=== PATIENT | female | born 1945 | race Caucasian/White ===

== ENCOUNTER 2017-01-20 21:13 | Inpatient (IN) | payer MEDICARE ==
[2017-01-20 21:53] LABS: Hematocrit 47 % (35-47); Hemoglobin 14.7 g/dl (12.0-16.0); Mean Corpuscular HGB Conc 31 g/dl (31-36); Mean Corpuscular Hemoglobin 31 pg (27-31); Mean Corpuscular Volume 97 fL (80-97); Mean Platelet Volume 10 um3 (7.4-10.4); Red Blood Count 4.81 10^6/ul (4.0-5.4); Red Cell Distribution Width 17 % (10.5-15); White Blood Count 29.9 10^3/ul (3.5-10.8)
[2017-01-20 21:54] LABS: Add Diff/Slide Review? Manual Diff Added; Comments Flag Yes
[2017-01-20 22:15] LABS: ALT 27 U/L (7-52); Albumin 3.5 g/dL (3.2-5.2); Alkaline Phosphatase 72 U/L (34-104); Blood Urea Nitrogen 40 mg/dL (6-24); CO2 Carbon Dioxide 25 mmol/L (22-32); Calcium 9.2 mg/dL (8.6-10.3); Chloride 97 mmol/L (101-111); EGFR African American 54.3 (>60); EGFR Non-African American 42.2 (>60); Glucose 204 mg/dL (70-100); Sodium 134 mmol/L (133-145); Total Protein 8.5 g/dL (6.4-8.9)
[2017-01-20 22:20] LABS: Add Path Review? YES; Immature Granulocytes 5 % (0-9); Neutrophil % 90 % (38-83); Toxic Granulation 2+; Troponin I 0.09 ng/mL (<0.04)
[2017-01-20 22:31] LABS: Creatine Kinase 6977 U/L (10-223)
--- NOTE | 2017-01-20 22:31 | RAD ---
INDICATION: Trauma, altered mental status. COMPARISON: Comparison is made with a prior CT of the brain from July 13, 2007. TECHNIQUE: Contiguous axial sections of the brain were obtained from the skull base to the vertex without contrast. FINDINGS: The ventricles, cisterns and sulci are enlarged consistent with age-related atrophy. There is a focal area of encephalomalacia present in the periventricular white matter adjacent to the frontal horn of the left lateral ventricle involving the caudate nucleus consistent with an old infarct. No other focal abnormalities or mass effect are seen. There is no evidence for hemorrhage. No significant focal osseous abnormality is seen. The visualized portion of the paranasal sinuses and mastoid air cells appear clear. IMPRESSION: 1. NO EVIDENCE FOR ACUTE INTRACRANIAL ABNORMALITY. 2. OLD LEFT FRONTAL LOBE INFARCT.
[2017-01-20] MEDS ORDERED: NS 0.9% 1000 ML* 1,000 ML IV ONE (22:54)
--- NOTE | 2017-01-20 22:58 | RAD ---
INDICATION: Trauma. COMPARISON: Comparison is made with a prior chest x-ray study from September 22, 2015. TECHNIQUE: A portable view of the chest was obtained. FINDINGS: The patient is status post coronary artery bypass surgery. The heart is moderately enlarged and unchanged. The lungs are underinflated and grossly clear. No pleural effusion is seen. IMPRESSION: UNDERINFLATED LUNGS, NO EVIDENCE FOR ACUTE FINDING.
--- NOTE | 2017-01-20 23:13 | RAD ---
INDICATION: Right hip injury. COMPARISON: There are no prior studies available for comparison. TECHNIQUE: An AP view of the pelvis and frontal and lateral views of the right hip were obtained. FINDINGS: The patient was unable to be positioned for the standard images and there is a large amount of bowel gas which projects over the pelvis limiting the exam. There is suggestion of a fracture of the right femoral neck which is not well-defined on this study. No other fractures are seen. Joint spaces appear maintained within the hips. A portion of the colon extends below the ischial tuberosities suspicious for a hernia. IMPRESSION: 1. PROBABLE FRACTURE OF THE RIGHT FEMORAL NECK NOT WELL-DEFINED ON THIS STUDY. RECOMMEND FURTHER EVALUATED WITH A CT OF THE PELVIS WITHOUT CONTRAST. 2. POSSIBLE HERNIA OF THE COLON NOTED ABOVE.
[2017-01-20] MEDS ORDERED: NS 0.9% 1000 ML* 1,000 ML IV SCH (23:45)
[2017-01-20] MEDS ORDERED: Cefepime(*) 2 GM in NS 0.9% 50 ML* 50 ML IVPB ONE (23:55)
[2017-01-20] MEDS ORDERED: Senna TAB PO PRN (23:57)
[2017-01-20] MEDS ORDERED: Ondansetron INJ* 2 MG/ML VIAL IV PRN (23:57)
[2017-01-20] MEDS ORDERED: Docusate CAP* 100 MG PO PRN (23:57)
[2017-01-20] MEDS ORDERED: Acetaminophen TAB* 325 MG PO PRN (23:57)
[2017-01-20] MEDS ORDERED: Al Hydrox/Mg Hydrox/Simet LIQ* 30 ML UDC PO PRN (23:57)
[2017-01-21] MEDS ORDERED: Dextrose 50% Syringe 50 ML* 25 GM/50 ML SYRINGE IV PUSH PRN (00:02)
[2017-01-21] MEDS ORDERED: NS 0.9% 50 ML* 50 ML ONE (00:23)
[2017-01-21] MEDS ORDERED: Aspirin SUPP* 300 MG PR ONE (00:49)
[2017-01-21 01:57] LABS: Urine Bacteria 2+ (Absent); Urine Bilirubin Negative (Negative); Urine Glucose Negative (Negative); Urine Nitrite Negative (Negative)
[2017-01-21 02:06] LABS: Troponin I 0.13 ng/mL (<0.04)
[2017-01-21] MEDS: Nystatin TOP POWDER* 15 GM BTL TOPICAL SCH ×4 (02:08→21:44)
[2017-01-21] MEDS: Insulin LISPRO* 1 UNITS UNIT SUBCUT SCH ×6 (02:16→21:38)
--- NOTE | 2017-01-21 03:28 | HP ---
HISTORY AND PHYSICAL: DATE OF ADMISSION: 01/20/17 TIME OF EVALUATION: 2300. PRIMARY CARE PHYSICIAN: Ammy Vieira MD CHIEF COMPLAINT: Fall and altered mental status. HISTORY OF PRESENT ILLNESS: The patient is hallucinating and altered and unable to give a reliable history, unable to answer questions appropriately or follow commands. According to the notes in the ER report, patient was found by her neighbors on the ground. They brought her to emergency room for further evaluation. Patient was noted to have an elevated white count, acute kidney injury, elevated troponins, CK and evidence of right hip fracture. On my encounter, patient denies any pain. She states that no one would help her and that she is seeing a woman standing next to me who was not actually there. She is unable to provide any reliable history and she is rambling nonsensical information to me. In the emergency room, the patient had labs, imaging. She was given a liter of normal saline, was referred to the hospitalist service for further evaluation. PAST MEDICAL HISTORY: 1. Her head CT shows an old frontal lobe infarct. 2. History of coronary artery disease, status post bypass in 2007. 3. History of pulmonic stenosis. 4. History of obstructive sleep apnea. She does not tolerate CPAP. 5. Hyperlipidemia. 6. History of atrial fibrillation. 7. Diabetes. 8. Stasis dermatitis. 9. Morbid obesity. MEDICATIONS: Medications that were in the med rec confirmed are: 1. Steroid cream. 2. Multaq 400 mg p.o. b.i.d. 3. Aspirin 81 mg daily. 4. Eliquis 5 mg p.o. b.i.d. 5. Januvia 100 mg daily. 6. Glipizide 5 mg p.o. b.i.d. 7. Zocor 80 mg daily. 8. Lopressor 25 mg p.o. b.i.d. ALLERGIES: No known drug allergies. SOCIAL HISTORY: Unknown. It appears that she has 2 sisters that are in the system here. FAMILY HISTORY: Unknown. REVIEW OF SYSTEMS: Unable to obtain. PHYSICAL EXAM: GENERAL: In no acute distress, rambling nonsensical information. VITAL SIGNS: Temperature 96.7, pulse rate of 87, respiratory rate 20, oxygen saturation 99% on 4 L, blood pressure 160/93. HEENT: Pupils are equal and sluggish, anicteric. Head normocephalic. Oropharynx: Mucous membranes are dry. NECK: Supple. No lymphadenopathy. RESPIRATORY: Diminished breath sounds. No wheezing, rhonchi, or rales. CARDIAC: Regular rate and rhythm. Soft systolic murmur heard throughout. ABDOMEN: Soft, nontender, nondistended. EXTREMITIES: Patient with right lower extremity shortened and externally rotated. DERM: Patient with erythematous regions in the folds of her skin in her lower extremities with dry peeling skin on her feet. NEUROLOGIC: Unable to follow commands. Alert and oriented x0. She is able to move her upper and lower extremities. Limited lower extremity mobility in the right lower extremity. LABORATORY DATA: White count 29.9, hemoglobin 14.7, hematocrit 47, platelets 263, neutrophils percentage of 90, bands of 5. Sodium 134, chloride 97, bicarb 25, BUN 40, creatinine 1.25, glucose 204, total bili 1.3, CK is 6977, troponin is 0.09. Radiographic data: EKG shows normal sinus rhythm. Head CT, no evidence for acute intracranial abnormality. Old left frontal lobe infarct. Hip and pelvis x-ray, probable fracture of the right femoral neck, not well defined. Recommend further evaluation with CT of pelvis without contrast. Possible hernia of the colon as noted above. Chest x-ray; underinflated lungs show no evidence for acute findings. ASSESSMENT: This is a 72-year-old female with a past medical history of CAD, CVA, obstructive sleep apnea. She was found on the floor by the neighbors, now altered with leukocytosis, acute kidney injury and elevated troponin. 1. Fall. Assessment: Unclear of the etiology behind her fall as the patient is altered and unable to give a history. It is unclear of the duration either. Her CK on presentation was 7000 with acute kidney injury. Also found to have a significant leukocytosis. Could be infectious etiology resulting in the fall versus myocardial infarction versus acute stroke. As a result of the fall, she likely appears to have suffered a right hip fracture. Plan: Due to patient's significant altered mental status and her metabolic derangements with significant comorbidity history and admitting her to the ICU, we will follow up on a urinalysis order, blood cultures and start her on cefepime. CT of her head. We will also place for a social work consult to get contact information for her family and find out who her healthcare proxy is. I will also continue her on IV fluids in the setting of her rhabdomyolysis. We will put in for a bedside swallow as I am concerned that she is not safe to eat or drink at this time. 2. Right hip fracture. Assessment: X-ray findings are not clear on as to the type of fracture. Plan: We will get a CT, would hold off on any surgical procedure until the patient is stabilized with her mental status and further etiology of this. Also , she is on Eliquis supposedly. So, we will not continue this at this time. We will check her coags. 3. Acute kidney injury. Assessment: Suspect this is from her fall prerenal and complicated by her rhabdomyolysis. Plan: We will continue her on IV fluids and repeat labs in the morning. Renally dose her medications. 4. Leukocytosis. Assessment: Urine has not been obtained yet. The chest x- ray was unremarkable. She does have a lot of skin erythema and irritation. No purulent wounds noted on limited exam. Plan: We will do blood cultures as mentioned and start her on cefepime and follow up on her urine. 5. Elevated troponin. Assessment: Patient is unable to articulate any pain at this time. EKG is unremarkable. I will trend her troponins, check an echocardiogram and order aspirin suppository for now. 6. Altered mental status. Assessment: As discussed above, could be related to infectious etiology. Also, concern for possible stroke. Plan: We will give her aspirin and as mentioned empiric antibiotics for now and need to get in touch with the family. 7. Chronic medical problems. Hold all her oral agents at this time as the patient is unsafe to tolerate any p.o. We will place her on q.4 hours of glucose monitoring with lispro sliding scale for her diabetes. 8. FEN. As mentioned, keep her n.p.o. until she is safe to pass a swallow eval with IV fluids. 9. DVT prophylaxis: We will check her coags first and place her on SCD's and heparin subcu t.i.d. 10. Code status. Presuming that this is a full code, we need to get in touch with her healthcare proxy. TIME SPENT: Greater than 90 minutes was spent doing the history and physical, more than half the time was spent in direct patient contact. CC: Ammy Vieira MD* [id number]/CPS #: [id number] [facility]
[2017-01-21] MEDS: Heparin VIAL(*) 5000 UNITS/ML VIAL (FIVE THOUSAND) SUBCUT SCH ×3 (05:37→21:44)
[2017-01-21 06:07] LABS: Hematocrit 39 % (35-47); Hemoglobin 12.4 g/dl (12.0-16.0); Mean Corpuscular HGB Conc 32 g/dl (31-36); Mean Corpuscular Hemoglobin 31 pg (27-31); Mean Corpuscular Volume 97 fL (80-97); Mean Platelet Volume 9 um3 (7.4-10.4); Red Blood Count 4.05 10^6/ul (4.0-5.4); Red Cell Distribution Width 16 % (10.5-15); White Blood Count 28.5 10^3/ul (3.5-10.8)
[2017-01-21 06:08] LABS: Add Diff/Slide Review? Slide Review Added; Comments Flag Yes
[2017-01-21 06:28] LABS: BUN/Creatinine Ratio 34.5 (8-20); Blood Urea Nitrogen 38 mg/dL (6-24); CO2 Carbon Dioxide 27 mmol/L (22-32); Calcium 8.5 mg/dL (8.6-10.3); Chloride 102 mmol/L (101-111); Glucose 154 mg/dL (70-100); Sodium 138 mmol/L (133-145)
[2017-01-21 06:46] LABS: Creatine Kinase 4088 U/L (10-223)
[2017-01-21 07:04] LABS: Troponin I 0.17 ng/mL (<0.04)
--- NOTE | 2017-01-21 08:51 | RAD ---
Indication: Found on floor. Altered mental status. Assess for RIGHT hip fracture. Comparison: January 20, 2017 radiographs and June 15, 2007 CT. Technique: Multidetector CT pelvis without contrast. Multiplanar reformation with bone algorithm. Report: The hips are normally located. No evidence for RIGHT or LEFT proximal femur or pelvic fracture. Negative for pelvic joint diastases. Bone density appears decreased throughout. No soft tissue hematoma evident. Large transverse colon containing midline ventral hernia without resulting bowel obstruction or inflammatory change. Large volume of stool in the colon with moderate rectal distention. Catheterized largely decompressed urinary bladder. No free pelvic fluid. Negative for lymphadenopathy within the [id number]. Atherosclerotic calcification. The visualized infrarenal abdominal aorta and iliac arteries are negative for evidence for aneurysm. IMPRESSION: No CT evidence for hip or pelvic fracture.
--- NOTE | 2017-01-21 09:19 | PN ---
Subjective Date of Service: 01/21/17 Interval History: HOSPITALIST PROGRESS NOTE Patient seen and examined at bedside. She is lethargic, but opens eyes when touched. Confused, offers no complaints, but experienced significant pain when rolled to her right side. Family History: Unchanged from Admission Social History: Unchanged from Admission Past Medical History: Unchanged from Admission Objective Active Medications: Acetaminophen (Tylenol Tab*) 650 mg PO Q4H PRN PRN Reason: FEVER/PAIN Al Hydrox/Mg Hydrox/Simethicone (Maalox Plus*) 30 ml PO Q6H PRN PRN Reason: INDIGESTION Dextrose (D50w Syringe 50 Ml*) 12.5 gm IV PUSH .FOR FS < 60 - SS PRN PRN Reason: FS < 60 Docusate Sodium (Colace Cap*) 100 mg PO BID PRN PRN Reason: CONSTIPATION Heparin Sodium (Porcine) (Heparin Vial(*)) 5,000 units SUBCUT Q8HR [facility] Last Admin: 01/21/17 05:37 Dose: 5,000 units Cefepime HCl 2 gm/ Sodium (Chloride) 50 mls @ 100 mls/hr IVPB Q12H [facility] Sodium Chloride (Ns 0.9% 1000 Ml*) 1,000 mls @ 125 mls/hr IV PER RATE [facility] Last Admin: 01/21/17 01:57 Dose: 125 mls/hr Insulin Human Lispro (Humalog*) 0 units SUBCUT Q4HR [facility] PRN Reason: Protocol Last Admin: 01/21/17 05:51 Dose: 3 units Morphine Sulfate (Morphine Inj (Syringe)*) 2 mg IV Q4H PRN PRN Reason: PAIN Nystatin (Nystatin Top Powder*) 1 applic TOPICAL TID [facility] Last Admin: 01/21/17 02:08 Dose: 1 applic Ondansetron HCl (Zofran Inj*) 4 mg IV Q4H PRN PRN Reason: NAUSEA/VOMITING Oxycodone/Acetaminophen (Percocet 5/325 Tab*) 1 tab PO Q4H PRN PRN Reason: Pain Senna (Senokot Tab*) 1 tab PO BID PRN PRN Reason: CONSTIPATION Vital Signs 01/21/17 01/21/17 01/21/17 05:00 06:00 07:00 Temperature 98.5 F 98.9 F 98.9 F Pulse Rate Respiratory 22 21 23 Rate Blood Pressure 126/63 138/86 (mmHg) O2 Sat by Pulse 98 98 98 Oximetry Oxygen Devices in Use Now: Nasal Cannula Appearance: Elderly morbid obese lady lying in bed in NAD. Eyes: No Scleral Icterus Ears/Nose/Mouth/Throat: - - Dry MM Neck: Trachea Midline Respiratory: Symmetrical Chest Expansion and Respiratory Effort, Clear to Auscultation Cardiovascular: RRR - Normal S1 and S2, +SM Abdominal: - - Obese, large umbilical hernia, I'm unable to reduce it, but not abdominal tenderness, NG, NR, BS+ Extremities: - - Bilateral LE edema with hyperkeratosis, oozing of clear fluid, mild erythema. RLE is externally rotated, shorter, and she has a bruise on the posterior aspect of the right hip. Neurological: - - Lethargic, arousable to touch, confused, oriented to self only , BRAVO, no nuchal rigidity Lines/Tubes/Other Access: Clean, Dry and Intact Peripheral IV Result Diagrams: 01/21/17 05:43 01/21/17 06:47 Assess/Plan/Problems-Billing Assessment: Mrs. Walton is an 72yo F with PMH of morbid obesity with BMI 50, CVA, CAD s/p CABG 2007, pulmonic stenosis, CLAUDE non compliant with CPAP, HLD, Afib on Eliquis , type 2 DM, stasis dermatitis, brought in to ED after being found on the floor , confused, for unknown period of time. - Patient Problems (1) Severe sepsis Comment: - Patient met sepsis criteria on admission with leukocytosis, tachycardia, complicated by ADELAIDA and delirium. - Siginificant leukocytosis with left shift and bandemia. - Source is unclear at this time - UA showed negative nitrates and LE, trace WBCs; CxR shows no infiltrate; skin lesions appear to be chronic. She has a large umbilical hernia, but it doesn't appear to be incarcerated; no meningeal signs. - She has a systolic murmur - awaiting echocardiogram and blood cultures, but endocarditis is a possibility - will request ID input. - Place NGT and check CT chest/abd/pelvis with IV/PO contrast looking for occult infectious process/abscess. - She was on Eliquis as outpatient - unclear when she took her last dose - will d/w ID if LP indicated, and if so, will make arrangements with Anesthesia. - Increase IVF and continue Cefepime. (2) Fall Comment: - Unclear if mechanical or syncopal. - Her RLE is externaly rotated and shorter, she has a bruise on the posterior aspect of her right hip, suggestive of fracture, but CT pelvis was negative. D/ w Ortho (Dr. Herrera) - recommended MRI pelvis. (3) Delirium Comment: - Associated with severe sepsis. - Supportive care. (4) Rhabdomyolysis Comment: - Secondary to down time on the floor. - Trending down. (5) Troponin level elevated Comment: - Could be secondary to rhabdo, demand ischemic in the setting of severe sepsis, or NSTEMI. - She has a known h/o CAD and EKG shows flat Ts and ST depression on the lateral leads. - Continue Aspirin ID and trend trops until peak. (6) ADELAIDA (acute kidney injury) Comment: - Suspect pre-renal in the setting of dehydration/sepsis. - Continue IVF and monitor renal function. (7) Lactic acidosis Comment: - Repeat lactic acid. (8) Atrial fibrillation Comment: - Currently in Afib with HR in the 90s. - Eliquis on hold in case patient needs procedures. (9) Diabetes Comment: - PO meds on hold - continue Lispro SS. (10) DVT prophylaxis Comment: - SQ heparin. (11) Full code status Status and Disposition: 60 minutes Critical care time spent on this patient care. deer farm worker consult to help us find family members.
[2017-01-21] MEDS ORDERED: NS 0.9% 1000 ML* 1,000 ML IV SCH (09:47)
--- NOTE | 2017-01-21 11:09 | ED ---
Adelfo Stubbs Erika, scribed for Jarrell Mccrary MD on 01/20/17 at 2201 . Adult Trauma - HPI Summary HPI Summary: Patient is a 72-year-old female BIBA to the ED with a CC of fall. EMS reports they found patient on the ground and brought her in. Patient now complains of right hip pain. Pt has AMS and cannot provide a clear history. LEVEL 5 CAVEAT - AMS. - History of Current Complaint Stated Complaint: FALL/LEG PAIN Time Seen by Provider: 01/20/17 21:18 Hx Obtained From: Patient, EMS Hx From Patient Unobtainable Due To: Altered Mental Status Mechanism of Injury: Fall Onset/Duration: Traumatic Current Severity: Moderate - Additional Pertinent History Primary Care Physician: JOHNNA - Allergy/Home Medications Allergies/Adverse Reactions: Allergies Allergy/AdvReac Type Severity Reaction Status Date / Time No Known Allergies Allergy Verified 01/20/17 23:24 PMH/Surg Hx/FS Hx/Imm Hx Endocrine/Hematology History: Reports: Hx Diabetes Denies: Hx Thyroid Disease Cardiovascular History: Reports: Hx Coronary Artery Disease, Hx Hypercholesterolemia - HLD, Hx Hypertension, Hx Valvular Heart Disease - AORTIC & PILMONARY STENOSIS, Other Cardiovascular Problems/Disorders - INFEROLATERAL & LATERAL WALL INFARCT - 2007 Respiratory History: Reports: Hx Sleep Apnea - CLAUDE GI History: Reports: Hx Crohn's Disease, Other GI Disorders - OBESITY, HERNIA REPAIR Musculoskeletal History: Denies: Hx Osteoporosis Sensory History: Reports: Hx Contacts or Glasses Opthamlomology History: Reports: Hx Contacts or Glasses Neurological History: Reports: Hx Transient Ischemic Attacks (TIA) Denies: Hx Headaches - Cancer History Hx Chemotherapy: No Hx Radiation Therapy: No - Surgical History Surgery Procedure, Year, and Place: HERNIA REPAIR. CARDIAC CATH 2008. CABG - 2008 @ [facility] - Family History Family History: Denies FHx breast cancer - Social History Alcohol Use: None Hx Substance Use: No Substance Use Type: Reports: None Hx Tobacco Use: No Smoking Status (MU): Never Smoked Tobacco Review of Systems - ROS Summary Review of Systems Summary: LEVEL 5 CAVEAT - AMS. Positive: Arthralgia - R hip All Other Systems Reviewed And Are Negative: No Physical Exam Triage Information Reviewed: Yes Vital Signs On Initial Exam: Temp Pulse Resp BP Pulse Ox 96.7 F 85 20 137/115 99 01/20/17 21:20 01/20/17 21:59 01/20/17 21:59 01/20/17 21:40 01/20/17 21:59 Vital Signs Reviewed: Yes Completion Of Physical Exam Limited Due To: Altered Mental Status Appearance: Positive: Well-Appearing, No Pain Distress, Obese - Morbidly Skin: Positive: Warm, Skin Color Reflects Adequate Perfusion, Dry, Other - Erythematous, weeping areas on all of her skin folds Head/Face: Positive: Normal Head/Face Inspection Eyes: Positive: Normal ENT: Positive: Normal ENT inspection Neck: Positive: Supple, Nontender Abdomen Description: Positive: Nontender, Soft Bowel Sounds: Positive: Present Musculoskeletal: Positive: Other - Right leg is shortened and externally rotated. Tender with any ROM over her hip Neurological: Positive: Other - Awake and alert but confused Psychiatric: Positive: Affect/Mood Appropriate Diagnostics - Vital Signs Vital Signs Temp Pulse Resp BP Pulse Ox 01/20/17 23:30 87 19 146/127 98 01/20/17 23:00 88 20 133/86 96 01/20/17 22:44 122/88 01/20/17 22:05 86 21 99 01/20/17 22:01 87 22 99 01/20/17 22:00 74/49 01/20/17 21:59 85 20 99 01/20/17 21:41 79 22 76 01/20/17 21:40 137/115 01/20/17 21:20 96.7 F 91 14 160/93 97 - Laboratory Lab Results: Lab Results 01/20/17 01/20/17 01/20/17 Range/Units 21:30 21:30 21:30 WBC 29.9 H (3.5-10.8) 10^3/ul RBC 4.81 (4.0-5.4) 10^6/ul Hgb 14.7 (12.0-16.0) g/dl Hct 47 (35-47) % MCV 97 (80-97) fL MCH 31 (27-31) pg MCHC 31 (31-36) g/dl RDW 17 H (10.5-15) % Plt Count 263 (150-450) 10^3/ul MPV 10 (7.4-10.4) um3 Immature Gran % (Auto) 5 (0-9) % Absolute Neuts (auto) 28.4 H (1.5-7.7) 10^3/ul Absolute Lymphs (auto) 0.9 L (1.0-4.8) 10^3/ul Absolute Monos (auto) 0.6 (0-0.8) 10^3/ul Absolute Eos (auto) 0 (0-0.6) 10^3/ul Absolute Basos (auto) 0 (0-0.2) 10^3/ul Absolute Nucleated RBC 0 10^3/ul Neutrophils % 90 H (38-83) % Band Neutrophils % 5 (0-8) % Lymphocytes % 3 L (25-47) % Monocytes % 2 (0-13) % Toxic Granulation 2+ Normal RBC Morphology Not Reportable Hem Pathologist Commnt Sodium 134 (133-145) mmol/L Potassium TNP Chloride 97 L (101-111) mmol/L Carbon Dioxide 25 (22-32) mmol/L Anion Gap TNP BUN 40 H (6-24) mg/dL Creatinine 1.25 H (0.51-0.95) mg/dL Est GFR ( Amer) 54.3 (>60) Est GFR (Non-Af Amer) 42.2 (>60) BUN/Creatinine Ratio 32.0 H (8-20) Glucose 204 H (70-100) mg/dL Lactic Acid 2.4 H* (0.5-2.0) mmol/L Calcium 9.2 (8.6-10.3) mg/dL Total Bilirubin 1.30 H (0.2-1.0) mg/dL AST TNP ALT 27 (7-52) U/L Alkaline Phosphatase 72 (34-104) U/L Total Creatine Kinase 6977 H (10-223) U/L Troponin I 0.09 H* (<0.04) ng/mL Total Protein 8.5 (6.4-8.9) g/dL Albumin 3.5 (3.2-5.2) g/dL Globulin 5.0 H (2-4) g/dL Albumin/Globulin Ratio 0.7 L (1-3) Result Diagrams: 01/21/17 05:43 01/21/17 06:47 Lab Statement: Any lab studies that have been ordered have been reviewed, and results considered in the medical decision making process. - Radiology CXR Radiology Interpretation Completed By: Radiologist - IMPRESSION: UNDERINFLATED LUNGS, NO EVIDENCE FOR ACUTE FINDING. R Hip XR Radiology Interpretation Completed By: Radiologist - IMPRESSION: 1. PROBABLE FRACTURE OF THE RIGHT FEMORAL NECK NOT WELL-DEFINED ON THIS STUDY. RECOMMEND FURTHER EVALUATED WITH A CT OF THE PELVIS WITHOUT CONTRAST. 2. POSSIBLE HERNIA OF THE COLON NOTED ABOVE. - CT CT Brain CT Interpretation Completed By: Radiologist - IMPRESSION: 1. NO EVIDENCE FOR ACUTE INTRACRANIAL ABNORMALITY. 2. OLD LEFT FRONTAL LOBE INFARCT. - EKG 21:14 Cardiac Rate: NL - at 88 bpm EKG Rhythm: Sinus Rhythm ST Segment: Non-Specific Adult Trauma Course/Dx - Course Course Of Treatment: Ms. Armstrong is difficult to evaluate as she has had a prevoious frontal CVA and her baseline mental status is unknown. She is awake and alert and answers some questions appropriately but at other times is clearly confused. She is morbidly obese and WBCdifficult to evaluate but clinially looks to have a right hip fracture. It is unkown how, why or when she fell. He CPK is elevated as are her WBCs. X-Ray reveals her hip fracture. Fluids have been started on her and Dr. Evans is consulting for admission. - Diagnoses Provider Diagnoses: Closed right hip fracture, Rhabdomyolysis - Physician Notifications Discussed Care Of Patient With: Dr. Evans (hospitalist) at 23:14 - discussed case. - Critical Care Time Critical Care Time: 30-74 min Discharge - Discharge Plan Condition: Stable Disposition: ADMITTED TO [facility] documentation as recorded by the Adelfo miles Erika accurately reflects the service I personally performed and the decisions made by , Jarrell Mccrary MD.
[2017-01-21] MEDS: Cefepime(*) 2 GM in NS 0.9% 50 ML* 50 ML IVPB SCH (12:43)
[2017-01-21 12:46] LABS: Hematocrit 38 % (35-47); Hemoglobin 11.9 g/dl (12.0-16.0); Mean Corpuscular HGB Conc 31 g/dl (31-36); Mean Corpuscular Hemoglobin 31 pg (27-31); Mean Corpuscular Volume 97 fL (80-97); Mean Platelet Volume 9 um3 (7.4-10.4); Red Blood Count 3.91 10^6/ul (4.0-5.4); Red Cell Distribution Width 16 % (10.5-15); White Blood Count 25.6 10^3/ul (3.5-10.8)
[2017-01-21 12:52] LABS: Add Diff/Slide Review? Manual Diff Added; Comments Flag Yes
[2017-01-21 13:02] LABS: Albumin 2.7 g/dL (3.2-5.2); C Reactive Protein 141.49 mg/L (< 5.00); Calcium 8.4 mg/dL (8.6-10.3); EGFR African American 67.9 (>60); EGFR Non-African American 52.8 (>60); Globulin 3.4 g/dL (2-4); Total Bilirubin 1.1 mg/dL (0.2-1.0); Total Protein 6.1 g/dL (6.4-8.9)
[2017-01-21 13:08] LABS: Troponin I 0.15 ng/mL (<0.04)
--- NOTE | 2017-01-21 13:22 | CONS ---
CONSULTATION REPORT: DATE OF CONSULTATION: 01/21/17 REQUESTING PHYSICIAN: Dr. Howard. CONSULTING SERVICE: Infectious Disease. REASON FOR CONSULTATION: Sepsis and encephalopathy. IMPRESSION: 1. Encephalopathy, present on admission due to systemic illness. She does not have nuchal rigidity and her mental status is still improving, so I do not believe there is meningitis present. 2. Sepsis, present on admission, the source is unknown at this point. She does have significant leukocytosis raising the question of either Clostridium difficile diarrhea, but she does not have much in the way of diarrhea. In fact she had a semi-formed stool today versus an undrained abscess and given her mild transaminitis and elevated bilirubin, a liver abscess is a consideration. She does have a murmur, so infectious endocarditis is in the differential diagnosis as is a urinary tract infection. She does have significant right hip pain and she has been evaluated for hip fracture because of external rotation of that leg, but because of also concomitant concern for infection she could have a septic hip as well. She does not have any spine tenderness to suggest an epidural abscess or vertebral osteo discitis. 3. Morbid obesity. 4. History of stroke. 5. Coronary artery disease status post coronary artery bypass graft. 6. Diabetes. RECOMMENDATION: 1. I agree with cefepime. She is going to have a CT of the abdomen today. The CT of the pelvis was unremarkable. If there is any evidence of liver abscess, we will add Flagyl. 2. She is going to have an MRI of the right hip and if that is unrevealing I would recommend an aspiration of the right hip joint to evaluate for septic hip. HISTORY OF PRESENT ILLNESS: This is a 72-year-old woman with diabetes and obesity admitted with right hip pain and altered mental status. She cannot provide a history of her illness given her mental status which is obtained instead from discussion with Dr. Howard and review of the medical record. She was found by her neighbors apparently on the ground and they brought her to the emergency room where she was found to have leukocytosis, acute kidney injury, had normal troponin, and elevated CK. Hip x-ray showed probable fracture of the right femoral neck. A CT scan showed no fracture. Brain CT scan showed an old left frontal lobe infarct. A chest x-ray showed underinflated lungs and no acute findings. A CT of the pelvis in addition was showing no hip fracture, showed a ventral hernia containing transverse colon without bowel obstruction or inflammation, a catheter in the bladder. No lymphadenopathy or free pelvic fluid. She has been on cefepime and having IV fluid hydration or resuscitation. Her fever has improved as her hypotension and tachycardia. She is still tachypneic. She denies pain anywhere. She thinks she is at a birthday alliance party. PAST MEDICAL HISTORY: 1. Coronary artery disease status post CABG. 2. Morbid obesity. 3. Type 2 diabetes. 4. Pulmonic stenosis. 5. Obstructive sleep apnea, does not use CPAP. 6. Hyperlipidemia. 7. Atrial fibrillation. 8. Stasis dermatitis. MEDICATIONS: 1. Tylenol. 2. Aspirin. 3. Cefepime 2 g every 12 hours. 4. Heparin subcutaneous injection. 5. Zofran. 6. Oxycodone. ALLERGIES: No known drug allergies. FAMILY HISTORY: Cannot provide. SOCIAL HISTORY: She cannot provide. REVIEW OF SYSTEMS: Unobtainable. PHYSICAL EXAM: Vital Signs: Temperature is 37, heart rate 90, respiration rate 24, blood pressure 150/130, O2 sat 99% on 4 L. In general, she is not under stress or diaphoretic. Neurologic: She is awake. She regards. She follows some commands. She is oriented x1. She answered some yes and no questions but no others. She has no lower extremity clonus. She can move all of her extremities. HEENT: There is no conjunctival hemorrhage. Oropharynx without lesions. Neck is supple without nuchal rigidity. Lymph Nodes: There is no cervical, supraclavicular, inguinal, axillary or epitrochlear lymphadenopathy. Heart is regular rate and rhythm without murmurs, rubs or gallops. She has a 2/6 systolic murmur. Lungs are clear to auscultation bilaterally. Abdomen is soft, nontender, nondistended. There are bowel sounds present. There is midline ventral hernia with bowel present, which is nontender and reducible. Skin: There is no rash or splinter hemorrhages. She has bilateral lower extremity venous stasis changes. Musculoskeletal: There is no spine tenderness to palpation. She does have right hip pain with palpation and minimal log roll. I did not perform further evaluation given concern for fracture. There is no other joint synovitis. LABORATORY DATA: White blood cell count 28 down from 30, hemoglobin 12, platelets 230, creatinine is 1.1. CK is 4000 down from 7000. Troponin is 0.2. Please see impressions and recommendations as outlined above which I have discussed with Dr. Howard. Thanks for asking me to see Ms. Armstrong in consultation. [id number]/[facility] #: [id number] JEFF
[2017-01-21 13:53] LABS: Neutrophil % 92 % (38-83); RBC Morphology Normal (Normal)
[2017-01-21] MEDS ORDERED: Iodixanol* (CONTRAST) 320 MG/ML 100 ML SDV IV SCH (14:03)
--- NOTE | 2017-01-21 15:33 | RAD ---
HISTORY: Sepsis COMPARISONS: None relevant available at the time of dictation TECHNIQUE: Multiple contiguous axial CT scans were obtained of the chest, abdomen, and pelvis after the administration of intravenous contrast. Coronal and sagittal multiplanar reformations are submitted for review.. Oral contrast was administered. Delayed images were obtained through the abdomen and pelvis. FINDINGS: The study is limited by patient body habitus. CHEST NECK AND THYROID: The lower neck and thyroid are unremarkable. CHEST WALL: There is no lower cervical, axillary, or supraclavicular lymphadenopathy by size criteria. HEART AND PERICARDIUM: The heart is unremarkable. 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 ROSAMARIA: There is no hilar lymphadenopathy by size criteria. AIRWAY AND ESOPHAGUS: The airway is unremarkable, without endobronchial filling defect. The esophagus is grossly normal. LUNG PARENCHYMA: The lung volumes are low. There is minimal dependent atelectasis of the lung bases bilaterally. There are small bilateral pleural effusions. PLEURA: There are small bilateral pleural effusions BONES AND SOFT TISSUES: The patient is status post median sternotomy.There appears to be a transverse fracture through the anterior aspect of the T12 vertebral body of uncertain acuity. This does not appear to involve the middle column or posterior column. There is no subluxation. ABDOMEN/PELVIS: LIVER: The liver is normal in shape, size, contour, and attenuation. BILE DUCTS: There is no intrahepatic or extrahepatic biliary dilatation. GALLBLADDER: Multiple gallstones are noted. There is no pericholecystic inflammatory change. PANCREAS: The pancreas is normal, without mass or ductal dilatation. SPLEEN: Normal in size and appearance. UPPER GI TRACT: Evaluation of the gastrointestinal tract is limited by incomplete gastric distention. The upper GI tract is unremarkable. SMALL BOWEL \T\ MESENTERY: The small bowel is normal in contour, course, and caliber. There is no obstruction or dilatation. COLON: There is enlargement of stool throughout the colon. There is a large ventral hernia containing loops of sigmoid colon. ADRENALS: Normal bilaterally. KIDNEYS: The kidneys are normal in shape, size, contour, and axis. There is no hydronephrosis or nephrolithiasis. BLADDER: The bladder is collapsed around a Flowers catheter PELVIC ORGANS: The uterus and adnexa are grossly normal for technique. AORTA: There is calcific atherosclerotic disease of the abdominal aorta and its branches, without aneurysmal dilatation IVC: Unremarkable LYMPH NODES: There is no lymphadenopathy by size criteria. ABDOMINAL WALL: As noted above, there is a large ventral hernia containing loops of sigmoid colon. BONES: Degenerative changes are noted along the spine. Again noted is a transverse fracture through T12 of uncertain acuity OTHER: None IMPRESSION: 1. 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 2. THERE IS A TRANSVERSE FRACTURE THROUGH THE ANTERIOR ASPECT OF THE T12 VERTEBRAL BODY OF UNCERTAIN ACUITY. THIS DOES NOT APPEAR TO INVOLVE THE MIDDLE OR POSTERIOR COLUMNS. 3. LARGE VENTRAL HERNIA CONTAINING LOOPS OF SIGMOID COLON. 4. LARGE AMOUNT OF STOOL WITHIN THE COLON PRELIMINARY FINDINGS WERE DISCUSSED WITH DR. MCKEON AT APPROXIMATELY 3:30 PM ON JANUARY 21, 2017.
--- NOTE | 2017-01-21 16:27 | ECHO ---
Patient: SCOT FAGAN [facility] Rec#: [id number] : 1945 Date: 01/21/2017 Age: 72y Height: 162.56 cm / 64.0 in Weight: 132.45 kg / 291.9 lbs Sex: F BSA: 2.3 Room#: [id number] Admit Date#: 01/20/2017 Type: Inpatient Referring: Shaye Evans Reading: Chad Santos MD Fuel Cell Battery Technician: Holly Cuadra Fuel Cell Battery Technician: Debora Choe,JESSIECS,RDMS CC: JAS PATEL Transthoracic Echocardiogram Indication: Elevated troponins, aortic stenosis BP: 138/86 HR: 90 Rhythm: NSR with PVCs Indications Aortic Valve Disorders Findings History: CAD with GABG 2008, pulmonic stenosis, CLAUDE, A-fib, CVA, HLD, DM, morbid obesity, soft systolic murmur, aortic stenosis. Technical Comments: The study is technically difficult. The study is technically limited due to patient body habitus. The study was technically limited due to the patient's inability to lay in the left lateral decubitus position. Completed at 1500. Left Ventricle: The left ventricular chamber size is decreased. Severe concentric left ventricular hypertrophy is observed. Left ventricular systolic function is at the lower limits of normal. The estimated ejection fraction is 50-55%. closer to 55% with mild relative hypokinesis of the infero and inferoseptal segments. Abnormal left ventricular diastolic function is observed. The left ventricular diastolic filling pattern is restrictive. The basal inferior, and basal inferoseptal wall segments are hypokinetic (score 2). Overall wallmotion score index is 1.13 Left Atrium: The left atrium is not well visualized. Right Ventricle: The right ventricle is not well visualized. The right ventricle wall thickness is mildly increased.7 mm. The right ventricular global systolic function is moderately reduced. Right Atrium: The right atrium is not well visualized. Aortic Valve: Severe aortic leaflet calcification is visualized. Systolic excursion of the aortic valve cusps is reduced. There is severe aortic stenosis.DI .21 The mean gradient of the aortic valve is 42.68 mmHg. The peak instantaneous gradient of the aortic valve is 74.2 mmHg. The aortic valve area, by peak velocities, is calculated at 0.6 cm2. The aortic valve area, by VTI's, is calculated at 0.7 cm2. The highest aortic valve velocity was obtained with the standard probe from the A5C view. Mitral Valve: There is mitral annular calcification. The mitral valve leaflets are moderately thickened. There is mild mitral regurgitation. There is mild mitral stenosis. Tricuspid Valve: The tricuspid valve leaflets are normal. There is moderate to severe tricuspid regurgitation. There is evidence of moderate to severe pulmonary hypertension. There is no tricuspid stenosis. Pulmonic Valve: The pulmonic valve structure is not well visualized. There is trace to mild pulmonic regurgitation. There is borderline Pulmonic Valve stenosis. Pericardium: There is no significant pericardial effusion. A pericardial fat pad is visualized. Aorta: There is no dilatation of the ascending aorta.The posterior aoric annulus is not well visualized; however, cannot exclude perivalvular abscess. There is no dilatation of the aortic arch. There is no dilation of the aortic root. Pulmonary Artery: The main pulmonary artery is not well visualized. Venous: The inferior vena cava is dilated. There is an approximate 50% respiratory change in the inferior vena cava dimension. Contrast: Optison was used to optimize study. 3 mL of Optison was utilized. Intravenous contrast was used to enhance endocardial border definition. Conclusions The study is technically limited due to patient body habitus. Severe concentric left ventricular hypertrophy is observed. Left ventricular systolic function is at the lower limits of normal. The left ventricular diastolic filling pattern is restrictive. The right ventricle wall thickness is mildly increased at 7 mm. The right ventricular global systolic function is moderately reduced. There is severe aortic stenosis. DI .21 The mean gradient of the aortic valve is 42.68 mmHg. The aortic valve area, by peak velocities, is calculated at 0.6 cm2. There is mild mitral regurgitation. There is mild mitral stenosis. There is moderate to severe tricuspid regurgitation. There is evidence of moderate to severe pulmonary hypertension. There is trace to mild pulmonic regurgitation. The main pulmonary artery is not well visualized. (reportedly dilated on CT). There is no dilatation of the ascending aorta. The posterior aortic annulus is not well visualized; however, cannot exclude perivalvular abscess. Interval progression in c/t 01/2014 when the DOMINIC was 1.1 cm2. Now 0.6- 0.7 cm2. Wall motion not assessed last time. This study not able to assess pulomonary artery dilatation. Measurements Name Value Normal Range RVIDd (AP) 2D 4 cm (0.9 - 2.6) IVSd (2D) 2.3 cm (0.6 - 1) LVPWd (2D) 1.8 cm (0.6 - 1) LVIDd (2D) 2.6 cm (3.6 - 5.4) LVIDs (2D) 1.7 cm - LV FS (2D) 34 % (25 - 45) Aortic Annulus 1.8 cm (1.4 - 2.6) Ao root diameter (2D) 2.9 cm (2.1 - 3.5) Ascending Ao 3.2 cm (2.1 - 3.4) Aortic arch 2.7 cm (1.8 - 3.4) LA dimension (AP) 2D 3.6 cm (2.3 - 3.8) Name Value Normal Range MV E-wave Vmax 1.1 m/sec - MV deceleration time 127 msec - MV A-wave Vmax 1.28 m/sec - MV E:A ratio 0.89 ratio - LV septal e' Vmax 0.05 m/sec - LV E:e' septal ratio 22 ratio - Name Value Normal Range AV Vmax 4.31 m/sec - AV VTI 82.9 cm - AV peak gradient 74.2 mmHg - AV mean gradient 42.68 mmHg - LVOT diameter 2 cm - LVOT Vmax 0.82 m/sec - LVOT VTI 17.35 cm - LVOT peak gradient 2.67 mmHg - LVOT mean gradient 1.54 mmHg - DOI (VTI) 0.21 ratio - DOMINIC (continuity Vmax) 0.6 cm2 - DOMINIC (continuity VTI) 0.7 cm2 - SOFY Vmax 1.16 m/sec - Name Value Normal Range MV Vmax 1.16 m/sec - MV VTI 25.14 cm - MV peak gradient 5.4 mmHg - MV mean gradient 3 mmHg - MV PHT 59.93 msec - MVA (PHT) 3.67 cm2 - Name Value Normal Range TR Vmax 3.8 m/sec - TR peak gradient 58 mmHg - RAP 8 mmHg - RVSP 66 mmHg - IVC diameter 2.1 cm - Name Value Normal Range PV Vmax 1.1 m/sec - PV peak gradient 5.06 mmHg - Wallmotion BAS Normal BA Normal BAL Normal AGATA Normal BI Hypokinetic BIS Hypokinetic MAS Normal MA Normal MAL Normal MIL Normal NV Normal MIS Normal Normal AA Normal AL Normal AI Normal APEX Normal
[2017-01-21] MEDS: NS 0.9% 1000 ML* 1,000 ML IV SCH (20:30)
--- NOTE | 2017-01-21 20:34 | CONS ---
CARDIOLOGY CONSULTATION: DATE OF CONSULT: 01/21/17 REASON FOR EVALUATION: Sepsis, Afib, aortic stenosis. HISTORY SOURCE: The patient unable to provide history. Source is from Dr. Shah, from Dr. Lay's old chart note from 12/19/15, and her admission note from 01/21/17. HISTORY OF PRESENT ILLNESS: This is a 72-year-old woman who has a history of coronary artery disease, bypass grafting, paroxysmal atrial fibrillation, morbid obesity, diabetes, who was found by her neighbors on the ground. She was brought to the emergency room. She was noted to have an elevated white count, acute kidney injury, elevated troponins, CK, and evidence of right hip fracture. She was hallucinating and rambling and was given a liter of normal saline. She had an echo performed today, which revealed severe aortic stenosis and she has leukocytosis. The differential diagnosis includes endocarditis. Of note, she also had a CT scan, which showed aneurysmal pulmonary artery. PAST MEDICAL HISTORY: Includes CT scan that shows an old frontal lobe infarct, history of coronary artery disease, status post bypass in 2007. [address] Lay's note at that time, in 2007 she had 80% LAD, ramus proximal 80%, circumflex mid 80%, OM1 occluded, collaterals from the LAD, RCA mid 60%, PDA normal. She had multivessel coronary artery grafting in July 2008 with FAGAN to LAD, radial artery graft to the ramus. She has a history of pulmonic stenosis, although we cannot see that quantitated, history of obstructive sleep apnea, did not tolerate CPAP; hyperlipidemia; paroxysmal atrial fibrillation, on Multaq; diabetes; stasis dermatitis; morbid obesity; aortic stenosis; hypertension; congestive heart failure. CVA was in 2005. Colitis. PAST SURGICAL HISTORY: Includes D and C in 1975, bypass grafting in 2007. MEDICATIONS: Her medications as an outpatient include: 1. Steroid cream. 2. Multaq 400 mg b.i.d. 3. Aspirin 81 mg a day. 4. Eliquis 5 mg b.i.d. 5. Januvia 100 mg a day. 6. Glipizide 5 mg b.i.d. 7. Zocor 80 mg a day. 8. Lopressor 25 mg b.i.d. ALLERGIES: She has no known drug allergies as per the chart. FAMILY HISTORY: She apparently has a brother and a sister, but has not yet met them. ROS: pt unable to provide PHYSICAL EXAM: She is a well-developed, morbidly obese female, who appears somewhat agitated, unable to tell me the date or where she is or answering questions coherently. No significant JVD. Carotids diminished. Cardiac Exam: S1, S2 with a 3/6 late peaking harsh systolic murmur at the base radiating across the precordium. Chest was clear, but the patient was poorly cooperative with exam. No CVAT. Abdomen, morbidly obese. Exam limited. Distal pulses diminished. There were chronic venous stasis changes at the lower extremities. moves all extremities. Unable to cooperate with exam further. Temperature 99.1, heart rate 94, O2 sats 99%. DIAGNOSTIC STUDIES/LAB DATA: Her CK on admission was 6977, troponin 0.09. White count of 29.9. She was hydrated and an echocardiogram was obtained today. Echocardiogram revealed severe aortic stenosis, mean gradient of 43, valve area of 0.6 to 0.7 sq cm, [id number] TR, [id number] pulmonary hypertension, borderline pulmonic valve stenosis by this evaluation, and posterior and aortic annulus was not well visualized, cannot exclude perivalvular abscess. Interval progression of an from 1.1 sq cm, then to 6.6 to 6.7 sq cm this time. Labs include white count of 25.6, down from 29.9 yesterday. Hemoglobin 11.9, hematocrit 38, platelet count of 217. INR 1.3. Troponin up to 0.21 at 10 o' clock this morning down to 0.15 at 12:30. Sodium 137, potassium 4.0, BUN 36, creatinine 1.0. CK 2745. CRP is 141. INR 1.1. Urine; 2+ bacteria, angel and cloudy, concentrate at 1.021, protein 1+, blood 3+, nitrite negative. Brain CT from yesterday revealed no evidence of acute intracranial abnormality, old left frontal lobe infarct. Pelvic CT from today, no evidence for hip fracture. 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 Transverse fractures to the anterior aspect of the T12 vertebral body of uncertain acuity. Large ventral hernia containing loops of sigmoid colon. Large amount of stool was in the colon. She had a consultation with Dr. Briggs of ID. There was concern for endocarditis as well as septic hip. She was started on cefepime and was to have a CT of the abdomen and she is going to have a MRI of the right hip in consideration of aspiration for a right hip joint. IMPRESSION: Ms. Armstrong has a history of coronary artery disease, aortic stenosis, paroxysmal atrial fibrillation, and now presents after being found on the floor with elevated CK's, sepsis. Certainly given the severity of the aortic stenosis, she is at risk for hemodynamic compromise and syncope. She also is at risk for endocarditis. I discussed case with Dr. Shah and I have recommended the following: We will continue to treat with antibiotics as you are doing. Would be cautious with hydration and avoid volume overload given her high risk for systolic dysfunction. Would consider SJ to better evaluate her valve and evaluate for endocarditis. Given her confusion and sepsis, she will be a poor candidate and high risk for aortic valve replacement. At this point in time, would continue antibiotics and stabilize her medically and consider transfer for CT surgery if the patient agrees and she is improved enough to be at reasonable risk for surgical intervention. Her prognosis is extremely guarded. [id number]/[facility] #: [id number] ADDENDUM: DATE OF CONSULTATION: 01/21/17 REASON FOR CONSULTATION: , sepsis, AFib. I had the opportunity to meet with Dr. Shah and the patient's brother and sister, Deandra. I had the opportunity to explain to them the diagnosis, prognosis and seriousness of the current situation. Given her severe and possible endocarditis and comorbidities, we put her at increased risk for complications at surgery. It is my opinion she has a life threatening illness and may not recover from this hospitalization. Deandra also reported that the patient has been less active over the recent weeks and seems to have decreased stamina. She also had some confusion earlier this week. She also conveyed that the patient did not want any heroic or life sustaining interventions in the event of a serious illness. I had raised the possibility of doing a SJ to better evaluate her aortic valve and try to confirm the source of the infection. However, she understands that this will put her at risk for complications including apnea, respiratory arrest, and intubation. At this point, Deandra, the healthcare proxy, understands the gravity of the situation and would like to proceed with antibiotics as we are doing on an empiric basis. Will await cultures. We will reevaluate tomorrow and see if she has recovered capacity to make a decision about the procedure. We will reconsider if she deteriorates. It is unlikely that a SJ will improve outcome or change the management at that point in time. If she improves, we will discuss the options with the patient and consider SJ at some point that will let her define the source of the infection. JEFF
--- NOTE | 2017-01-21 20:50 | CONS ---
CONSULTATIONS: ADDENDUM: DATE OF CONSULTATION: 01/21/17 REASON FOR CONSULTATION: , sepsis, AFib. I had the opportunity to meet with Dr. Shah and the patient's brother and sister, Deandra. I had the opportunity to explain to them the diagnosis, prognosis and seriousness of the current situation. Given her severe and possible endocarditis and comorbidities, we put her at increased risk for complications at surgery. It is my opinion she has a life threatening illness and may not recover from this hospitalization. Deandra also reported that the patient has been less active over the recent weeks and seems to have decreased stamina. She also had some confusion earlier this week. She also conveyed that the patient did not want any heroic or life sustaining interventions in the event of a serious illness. I had raised the possibility of doing a SJ to better evaluate her aortic valve and try to confirm the source of the infection. However, she understands that this will put her at risk for complications including apnea, respiratory arrest, and intubation. At this point, Deandra, the healthcare proxy, understands the gravity of the situation and would like to proceed with antibiotics as we are doing on an empiric basis. Will await cultures. We will reevaluate tomorrow and see if she has recovered capacity to make a decision about the procedure. We will reconsider if she deteriorates. It is unlikely that a SJ will improve outcome or change the management at that point in time. If she improves, we will discuss the options with the patient and consider SJ at some point that will let her define the source of the infection. [id number]/[facility] #: [id number] JEFF
[2017-01-22] MEDS: Cefepime(*) 2 GM in NS 0.9% 50 ML* 50 ML IVPB SCH ×3 (00:11→23:10)
[2017-01-22] MEDS: Insulin LISPRO* 1 UNITS UNIT SUBCUT SCH ×6 (01:57→21:51)
[2017-01-22 05:17] LABS: Hematocrit 39 % (35-47); Hemoglobin 12.2 g/dl (12.0-16.0); Mean Corpuscular HGB Conc 31 g/dl (31-36); Mean Corpuscular Hemoglobin 31 pg (27-31); Mean Corpuscular Volume 99 fL (80-97); Mean Platelet Volume 9 um3 (7.4-10.4); Red Cell Distribution Width 16 % (10.5-15); White Blood Count 21.2 10^3/ul (3.5-10.8)
[2017-01-22 05:21] LABS: Add Diff/Slide Review? Slide Review Added; Comments Flag Yes
[2017-01-22 05:31] LABS: Albumin 2.8 g/dL (3.2-5.2); C Reactive Protein 119.68 mg/L (< 5.00); Calcium 8.7 mg/dL (8.6-10.3); EGFR African American 77.4 (>60); EGFR Non-African American 60.2 (>60); Globulin 3.5 g/dL (2-4); Potassium 4.5 mmol/L (3.5-5.0); Total Protein 6.3 g/dL (6.4-8.9)
[2017-01-22] MEDS: Nystatin TOP POWDER* 15 GM BTL TOPICAL SCH ×4 (05:59→20:25)
[2017-01-22] MEDS: Heparin VIAL(*) 5000 UNITS/ML VIAL (FIVE THOUSAND) SUBCUT SCH ×3 (05:59→20:27)
[2017-01-22] MEDS: NS 0.9% 1000 ML* 1,000 ML IV SCH (06:23)
--- NOTE | 2017-01-22 07:44 | RAD ---
INDICATION: Trauma right hip pain evaluate for fracture. COMPARISON: Correlation is made with a prior CT of the pelvis from January 21, 2017. TECHNIQUE: Axial and coronal T1 and T2-weighted images of the pelvis were obtained. The exam is limited due to patient's body habitus. FINDINGS: No bone marrow edema or fracture is seen. No joint effusion is present. There is edema within the right gluteus maximums and medius muscles. There is also edema in the right adductor muscles most prominent in the adductor longus and prateek muscles. No discrete hematoma is appreciated. No free intraperitoneal fluid is seen. There is a small amount of fluid present within the presacral space. No sacral fracture is seen. Note is made of an anterior abdominal wall hernia containing a portion of the colon. IMPRESSION: 1. NO EVIDENCE FOR FRACTURE. 2. CONTUSIONS INVOLVING THE RIGHT GLUTEAL AND ADDUCTOR MUSCLES NOTED. 3. ANTERIOR ABDOMINAL WALL HERNIA.
[2017-01-22] MEDS ORDERED: Aspirin SUPP* 300 MG PR SCH (09:00)
--- NOTE | 2017-01-22 11:51 | PN ---
Progress Note - Progress Note SOAP: Subjective: 72 y/o female with h/o fall, rhabdo, sepsis- unknown source, ADELAIDA. Patient sitting in bed, responds to name. Objective: General- Appearing more alert from prior hospital notes, responds to questioning, answers often non-sensical. MSK- B/L LE's with chronic skin changes likely due to poor perfusion. + non- pitting edema b/l LE's. + tenderness to moderate palpation when I initially touch any part of b/l LEs, however with distraction pain subsides typically, however continued pain over RIGHT distal femur, lateral knee joint, medial calf. No pain with continued palpation with distraction over right troch, no pain with deep palpation right groin/ right hip joint. No ecchymosis seen, however examination limited due to inability to roll patient independently- majority of buttock not viewed. Patient unable/ willing to perform ROM, passive of active due to pain, patient states at "mid leg". Patient will actively resist pressure against mid-thigh with flex/ extension. PT 1+ b/l, difficult to find. patient will actively move toes, ankle, however unable to move knee joint due to pain in any direction. Attempted log roll of R leg causes pain "mid leg". Vital Signs Temp 99.1 F 01/22/17 11:00 Pulse 94 01/22/17 11:00 Resp 25 01/22/17 11:00 BP 107/89 01/22/17 11:00 Pulse Ox 90 01/22/17 11:00 Intake & Output 01/21/17 01/22/17 01/22/17 18:59 06:59 18:59 Intake Total 2224 1402 Output Total 280 650 Balance 1944 752 Weight 292 lb Intake: IV Fluids 1094 1321 NS (0.9%) 1094 1321 IVPB 100 81 NS (0.9%) 100 81 Oral 1030 Output: Flowers 280 650 Other: Date of Last Bowel 01/21/2017 01/22/17 Movement # Bowel Movements 1 1 Estimated Stool Amount Large Large Laboratory Results - last 24 hr 01/21/17 01/21/17 01/21/17 12:30 12:30 12:30 WBC 25.6 H RBC 3.91 L Hgb 11.9 L Hct 38 MCV 97 MCH 31 MCHC 31 RDW 16 H Plt Count 217 MPV 9 Neut % (Auto) Lymph % (Auto) [place] % (Auto) Eos % (Auto) Baso % (Auto) Absolute Neuts (auto) 23.55 H Absolute Lymphs (auto) 1.28 Absolute Monos (auto) 0.77 Absolute Eos (auto) 0 Absolute Basos (auto) 0 Absolute Nucleated RBC 0 Neutrophils % 92 H Lymphocytes % 5 L Monocytes % 3 Nucleated RBC % Normal RBC Morphology Normal Sodium 137 Potassium 4.0 Chloride 103 Carbon Dioxide 28 Anion Gap 6 BUN 36 H Creatinine 1.03 H Est GFR ( Amer) 67.9 Est GFR (Non-Af Amer) 52.8 BUN/Creatinine Ratio 35.0 H Glucose 116 H POC Glucose (mg/dL) Lactic Acid 1.5 Calcium 8.4 L Total Bilirubin 1.10 H AST 86 H ALT 23 Alkaline Phosphatase 49 Total Creatine Kinase 2745 H Troponin I 0.15 H* C-Reactive Protein 141.49 H Total Protein 6.1 L Albumin 2.7 L Globulin 3.4 Albumin/Globulin Ratio 0.8 L 01/21/17 01/21/17 01/21/17 13:47 17:52 21:38 WBC RBC Hgb Hct MCV MCH MCHC RDW Plt Count MPV Neut % (Auto) Lymph % (Auto) [place] % (Auto) Eos % (Auto) Baso % (Auto) Absolute Neuts (auto) Absolute Lymphs (auto) Absolute Monos (auto) Absolute Eos (auto) Absolute Basos (auto) Absolute Nucleated RBC Neutrophils % Lymphocytes % Monocytes % Nucleated RBC % Normal RBC Morphology Sodium Potassium Chloride Carbon Dioxide Anion Gap BUN Creatinine Est GFR ( Amer) Est GFR (Non-Af Amer) BUN/Creatinine Ratio Glucose POC Glucose (mg/dL) 132 H 102 112 H Lactic Acid Calcium Total Bilirubin AST ALT Alkaline Phosphatase Total Creatine Kinase Troponin I C-Reactive Protein Total Protein Albumin Globulin Albumin/Globulin Ratio 01/22/17 01/22/17 01/22/17 01:56 05:00 05:00 WBC 21.2 H RBC 4.00 Hgb 12.2 Hct 39 MCV 99 H MCH 31 MCHC 31 RDW 16 H Plt Count 197 MPV 9 Neut % (Auto) 91.4 H Lymph % (Auto) 4.1 L [place] % (Auto) 4.1 Eos % (Auto) 0.2 Baso % (Auto) 0.2 Absolute Neuts (auto) 19.4 H Absolute Lymphs (auto) 0.9 L Absolute Monos (auto) 0.9 H Absolute Eos (auto) 0.1 Absolute Basos (auto) 0.1 Absolute Nucleated RBC 0.01 Neutrophils % Lymphocytes % Monocytes % Nucleated RBC % 0 Normal RBC Morphology Sodium 137 Potassium 4.5 Chloride 106 Carbon Dioxide 24 Anion Gap 7 BUN 34 H Creatinine 0.92 Est GFR ( Amer) 77.4 Est GFR (Non-Af Amer) 60.2 BUN/Creatinine Ratio 37.0 H Glucose 102 H POC Glucose (mg/dL) 115 H Lactic Acid Calcium 8.7 Total Bilirubin 1.00 AST 62 H ALT 23 Alkaline Phosphatase 53 Total Creatine Kinase 1180 H Troponin I C-Reactive Protein 119.68 H Total Protein 6.3 L Albumin 2.8 L Globulin 3.5 Albumin/Globulin Ratio 0.8 L 01/22/17 01/22/17 05:00 11:03 WBC RBC Hgb Hct MCV MCH MCHC RDW Plt Count MPV Neut % (Auto) Lymph % (Auto) [place] % (Auto) Eos % (Auto) Baso % (Auto) Absolute Neuts (auto) Absolute Lymphs (auto) Absolute Monos (auto) Absolute Eos (auto) Absolute Basos (auto) Absolute Nucleated RBC Neutrophils % Lymphocytes % Monocytes % Nucleated RBC % Normal RBC Morphology Sodium Potassium Chloride Carbon Dioxide Anion Gap BUN Creatinine Est GFR ( Amer) Est GFR (Non-Af Amer) BUN/Creatinine Ratio Glucose POC Glucose (mg/dL) 108 H Lactic Acid 1.4 Calcium Total Bilirubin AST ALT Alkaline Phosphatase Total Creatine Kinase Troponin I C-Reactive Protein Total Protein Albumin Globulin Albumin/Globulin Ratio Assessment: 72 y/o female with h/o fall, rhabdo, sepsis- unknown source, ADELAIDA. Plan: - Concerns of R hip infection- MRI negative for source, physical exam not suggestive. Will order radiograph R femur, knee to r/o possible pathology for R leg pain - Urine cx's + - ADELAIDA, TCK improving. - Patient discussed with Dr. Herrera who will review radiographs - Will discuss with attending Active Medications Generic Name Dose Route Start Last Admin Trade Name Freq PRN Reason Stop Dose Admin Acetaminophen 650 mg 01/20/17 23:57 Tylenol Tab* PO Q4H PRN FEVER/PAIN Al Hydrox/Mg Hydrox/Simethicone 30 ml 01/20/17 23:57 Maalox Plus* PO Q6H PRN INDIGESTION Aspirin 300 mg 01/22/17 09:00 01/22/17 09:48 Aspirin Supp* NJ 300 mg DAILY GRACIE Administration Dextrose 12.5 gm 01/21/17 00:02 D50w Syringe 50 Ml* IV PUSH .FOR FS < 60 - SS PRN FS < 60 Docusate Sodium 100 mg 01/20/17 23:57 Colace Cap* PO BID PRN CONSTIPATION Heparin Sodium (Porcine) 5,000 units 01/21/17 06:00 01/22/17 05:59 Heparin Vial(*) SUBCUT 5,000 units Q8HR GRACIE Administration Cefepime HCl 2 gm/ Sodium 50 mls @ 100 mls/hr 01/21/17 12:00 01/22/17 11:48 Chloride IVPB 100 mls/hr Q12H GR[facility] Administration Sodium Chloride 1,000 mls @ 100 mls/hr 01/21/17 16:49 01/22/17 06:23 Ns 0.9% 1000 Ml* IV 100 mls/hr PER RATE GRAC[facility] Administration Insulin Human Lispro 0 units 01/21/17 02:00 01/22/17 11:06 Humalog* SUBCUT Not Given Q4HR [facility] Protocol Iodixanol 141 ml 01/21/17 14:03 01/21/17 14:49 Visipaque* 320 (Contrast) IV 01/23/17 14:02 141 ml ONCE GRAC[facility] Administration Morphine Sulfate 2 mg 01/20/17 23:57 Morphine Inj (Syringe)* IV Q4H PRN PAIN Nystatin 1 applic 01/21/17 02:00 01/22/17 09:48 Nystatin Top Powder* TOPICAL 1 applic TID GRACIE Administration Ondansetron HCl 4 mg 01/20/17 23:57 Zofran Inj* IV Q4H PRN NAUSEA/VOMITING Oxycodone/Acetaminophen 1 tab 01/20/17 23:57 Percocet 5/325 Tab* PO Q4H PRN Pain Senna 1 tab 01/20/17 23:57 Senokot Tab* PO BID PRN CONSTIPATION
--- NOTE | 2017-01-22 13:29 | PN ---
Subjective Date of Service: 01/22/17 Interval History: HOSPITALIST PROGRESS NOTE Patient seen and examined at bedside. She is more awake today, able to carry on conversation. Still confused, but knows she's in the hospital, although she doesn't remember why. Pain is "not bad " at this time. Family History: Unchanged from Admission Social History: Unchanged from Admission Past Medical History: Unchanged from Admission Objective Active Medications: Acetaminophen (Tylenol Tab*) 650 mg PO Q4H PRN PRN Reason: FEVER/PAIN Al Hydrox/Mg Hydrox/Simethicone (Maalox Plus*) 30 ml PO Q6H PRN PRN Reason: INDIGESTION Aspirin (Aspirin Supp*) 300 mg MA DAILY [facility] Last Admin: 01/22/17 09:48 Dose: 300 mg Dextrose (D50w Syringe 50 Ml*) 12.5 gm IV PUSH .FOR FS < 60 - SS PRN PRN Reason: FS < 60 Docusate Sodium (Colace Cap*) 100 mg PO BID PRN PRN Reason: CONSTIPATION Dronedarone (Multaq Tab*) 400 mg PO BID [facility] Heparin Sodium (Porcine) (Heparin Vial(*)) 5,000 units SUBCUT Q8HR [facility] Last Admin: 01/22/17 05:59 Dose: 5,000 units Cefepime HCl 2 gm/ Sodium (Chloride) 50 mls @ 100 mls/hr IVPB Q12H [facility] Last Admin: 01/22/17 11:48 Dose: 100 mls/hr Sodium Chloride (Ns 0.9% 1000 Ml*) 1,000 mls @ 100 mls/hr IV PER RATE [facility] Last Admin: 01/22/17 06:23 Dose: 100 mls/hr Insulin Human Lispro (Humalog*) 0 units SUBCUT Q4HR [facility]AC[facility] PRN Reason: Protocol Last Admin: 01/22/17 11:06 Dose: Not Given Iodixanol (Visipaque* 320 (Contrast)) 141 ml IV ONCE [facility] Stop: 01/23/17 14:02 Last Admin: 01/21/17 14:49 Dose: 141 ml Morphine Sulfate (Morphine Inj (Syringe)*) 2 mg IV Q4H PRN PRN Reason: PAIN Nystatin (Nystatin Top Powder*) 1 applic TOPICAL TID [facility] Last Admin: 01/22/17 09:48 Dose: 1 applic Ondansetron HCl (Zofran Inj*) 4 mg IV Q4H PRN PRN Reason: NAUSEA/VOMITING Oxycodone/Acetaminophen (Percocet 5/325 Tab*) 1 tab PO Q4H PRN PRN Reason: Pain Senna (Senokot Tab*) 1 tab PO BID PRN PRN Reason: CONSTIPATION Vital Signs 01/22/17 01/22/17 01/22/17 10:00 11:00 12:00 Temperature 99.3 F 99.1 F 99.1 F Pulse Rate 95 94 60 Respiratory 19 18 19 Rate Blood Pressure 126/76 107/89 123/60 (mmHg) O2 Sat by Pulse 97 90 100 Oximetry 01/22/17 01/22/17 12:12 13:00 Temperature 99.0 F 99.2 F Pulse Rate 81 Respiratory 21 Rate Blood Pressure 138/87 (mmHg) O2 Sat by Pulse 99 Oximetry Oxygen Devices in Use Now: Nasal Cannula Appearance: Elderly lady lying in bed in NAD. Eyes: No Scleral Icterus Ears/Nose/Mouth/Throat: Mucous Membranes Moist Neck: Trachea Midline Respiratory: Symmetrical Chest Expansion and Respiratory Effort, - - BS+ bilaterally with no added sounds Cardiovascular: RRR - Normal S1 and S2, +SM Abdominal: NL Sounds; No Tenderness; No Distention, - - Obese, ventral hernia Extremities: - - Bilateral LE lymphedema with chronic skin changes Neurological: - - AAOx1 (self), BRAVO Lines/Tubes/Other Access: Clean, Dry and Intact Peripheral IV Nutrition: Taking PO's Result Diagrams: 01/22/17 05:00 01/22/17 05:00 Assess/Plan/Problems-Billing Assessment: Mrs. Walton is an 72yo F with PMH of morbid obesity with BMI 50, CVA, CAD s/p CABG 2007, pulmonic stenosis, CLAUDE non compliant with CPAP, HLD, Afib on Eliquis , type 2 DM, stasis dermatitis, brought in to ED after being found on the floor , confused, for unknown period of time. - Patient Problems (1) Severe sepsis Comment: - Patient met sepsis criteria on admission with leukocytosis, tachycardia, complicated by ADELAIDA and delirium. - Siginificant leukocytosis with left shift and bandemia. - Source is still unclear at this time, but multiple possibilities - UA showed negative nitrates and LE, trace WBCs, but culture is now growing E. coli; echocardiogram showed critical and could not rule out a perivalvular abscess ; CxR shows no infiltrate; skin lesions appear to be chronic. She has a large umbilical hernia, but it doesn't appear to be incarcerated; no meningeal signs. - Blood cultures are negative for now. - Continue IVF and Cefepime. - Lengthy conversation with HCP (Deandra) - after reviewing risks and benefits of SJ, they elect not to proceeed with SJ. (2) Fall Comment: - Unclear if mechanical or syncopal. - Her RLE is externaly rotated and shorter, she has a bruise on the posterior aspect of her right hip, suggestive of fracture, but CT pelvis was negative. D/ w Ortho (Dr. Herrera) - recommended MRI pelvis, that was negative for fracture, showed only contusion involving right gluteal and adductor muscles. (3) Delirium Comment: - Associated with severe sepsis. - Supportive care. (4) Rhabdomyolysis Comment: - Secondary to down time on the floor. - Trending down. (5) Troponin level elevated Comment: - Could be secondary to rhabdo, demand ischemic in the setting of severe sepsis, or NSTEMI. - She has a known h/o CAD and EKG shows flat Ts and ST depression on the lateral leads. - Continue Aspirin MA and trend trops until peak. (6) ADELAIDA (acute kidney injury) Comment: - Suspect pre-renal in the setting of dehydration/sepsis. - Continue IVF and monitor renal function. (7) Atrial fibrillation Comment: - Currently in Afib with HR in the 90s. - Eliquis on hold in case patient needs procedures. (8) Diabetes Comment: - PO meds on hold - continue Lispro SS. (9) DVT prophylaxis Comment: - SQ heparin. (10) Full code status Status and Disposition: Inpatient.
--- NOTE | 2017-01-22 13:33 | RAD ---
HISTORY: Fall, right knee pain COMPARISONS: None relevant VIEWS: 6, multiple oblique views of the right femur with lateral views of the right knee FINDINGS: BONE DENSITY: Normal. BONES: There is an angulated fracture of the distal femoral metaphysis . There is articular extension to the patellofemoral compartment. JOINTS: There is moderate osteoarthritis of the right knee ALIGNMENT: There is no dislocation. SOFT TISSUES: Unremarkable. OTHER FINDINGS: None. IMPRESSION: ANGULATED FRACTURE OF THE DISTAL RIGHT FEMUR WITH ARTICULAR EXTENSION
[2017-01-22] MEDS: Dronedarone TAB* 400 MG PO SCH ×2 (14:28→20:26)
[2017-01-23] MEDS: Insulin LISPRO* 1 UNITS UNIT SUBCUT SCH ×6 (02:25→22:12)
[2017-01-23] MEDS: NS 0.9% 1000 ML* 1,000 ML IV SCH ×2 (04:12→11:16)
[2017-01-23] MEDS: Heparin VIAL(*) 5000 UNITS/ML VIAL (FIVE THOUSAND) SUBCUT SCH ×3 (05:27→22:20)
[2017-01-23] MEDS: oxyCODONE/Acetamin 5/325 MG* TAB PO PRN (09:17)
[2017-01-23] MEDS: Nystatin TOP POWDER* 15 GM BTL TOPICAL SCH ×3 (09:17→22:21)
[2017-01-23] MEDS: Dronedarone TAB* 400 MG PO SCH ×2 (09:17→22:18)
[2017-01-23] MEDS: Aspirin EC Low Dose* 81 MG TAB.EC PO SCH (09:17)
[2017-01-23 09:21] LABS: Hematocrit 36 % (35-47); Hemoglobin 11.5 g/dl (12.0-16.0); Mean Corpuscular HGB Conc 31 g/dl (31-36); Mean Corpuscular Hemoglobin 31 pg (27-31); Mean Corpuscular Volume 98 fL (80-97); Mean Platelet Volume 9 um3 (7.4-10.4); Red Blood Count 3.71 10^6/ul (4.0-5.4); Red Cell Distribution Width 16 % (10.5-15); White Blood Count 12.9 10^3/ul (3.5-10.8)
[2017-01-23 09:34] LABS: Albumin 2.7 g/dL (3.2-5.2); BUN/Creatinine Ratio 33.3 (8-20); C Reactive Protein 80.8 mg/L (< 5.00); Calcium 8.5 mg/dL (8.6-10.3); EGFR African American 93.6 (>60); EGFR Non-African American 72.8 (>60); Globulin 3.4 g/dL (2-4); Potassium 4.1 mmol/L (3.5-5.0); Total Bilirubin 1.3 mg/dL (0.2-1.0); Total Protein 6.1 g/dL (6.4-8.9)
--- NOTE | 2017-01-23 09:55 | PN ---
Progress Note - Progress Note SOAP: Subjective: Pt is confused but alert. Able to answer questions. Unaware of where she is. She states she has some SOB. She also reports N/T in her right foot. She continues to have pain in her knee and hip. She denies fever, chills. Objective: PE- 72 y/o obese F, lying comfortably in bed, confused RLE- chronic skin changes of the bilat lower extremities, right leg shortened and externally rotated, mild tenderness to palpation over the lateral hip and diffuse tenderness to palpation about the right knee. Passive and active ROM of the knee and hip limited due to pain, calf is firm due to skin changes but nontender, +PF/DF ankle, +1 DP pulse, sensation intact to light touch Vital Signs Temp Pulse Resp BP Pulse Ox 98.9 F 86 18 150/82 98 01/23/17 09:00 01/23/17 09:00 01/23/17 09:17 01/23/17 09:00 01/23/17 09:00 Laboratory Results - last 24 hr 01/21/17 01/22/17 01/22/17 12:30 11:03 14:36 WBC RBC Hgb Hct MCV MCH MCHC RDW Plt Count MPV Neut % (Auto) Lymph % (Auto) [place] % (Auto) Eos % (Auto) Baso % (Auto) Absolute Neuts (auto) Absolute Lymphs (auto) Absolute Monos (auto) Absolute Eos (auto) Absolute Basos (auto) Absolute Nucleated RBC Nucleated RBC % Differential Comment Hem Pathologist Commnt Sodium Potassium Chloride Carbon Dioxide Anion Gap BUN Creatinine Est GFR ( Amer) Est GFR (Non-Af Amer) BUN/Creatinine Ratio Glucose POC Glucose (mg/dL) 108 H 174 H Calcium Total Bilirubin AST ALT Alkaline Phosphatase C-Reactive Protein Total Protein Albumin Globulin Albumin/Globulin Ratio 01/22/17 01/22/17 01/23/17 18:50 21:48 02:19 WBC RBC Hgb Hct MCV MCH MCHC RDW Plt Count MPV Neut % (Auto) Lymph % (Auto) [place] % (Auto) Eos % (Auto) Baso % (Auto) Absolute Neuts (auto) Absolute Lymphs (auto) Absolute Monos (auto) Absolute Eos (auto) Absolute Basos (auto) Absolute Nucleated RBC Nucleated RBC % Differential Comment Hem Pathologist Commnt Sodium Potassium Chloride Carbon Dioxide Anion Gap BUN Creatinine Est GFR ( Amer) Est GFR (Non-Af Amer) BUN/Creatinine Ratio Glucose POC Glucose (mg/dL) 132 H 149 H 120 H Calcium Total Bilirubin AST ALT Alkaline Phosphatase C-Reactive Protein Total Protein Albumin Globulin Albumin/Globulin Ratio 01/23/17 01/23/17 01/23/17 05:31 09:06 09:07 WBC 12.9 H RBC 3.71 L Hgb 11.5 L Hct 36 MCV 98 H MCH 31 MCHC 31 RDW 16 H Plt Count 163 MPV 9 Neut % (Auto) 90.3 H Lymph % (Auto) 4.2 L [place] % (Auto) 5.0 Eos % (Auto) 0.3 Baso % (Auto) 0.2 Absolute Neuts (auto) 11.6 H Absolute Lymphs (auto) 0.5 L Absolute Monos (auto) 0.7 Absolute Eos (auto) 0 Absolute Basos (auto) 0 Absolute Nucleated RBC 0.02 Nucleated RBC % 0.2 Differential Comment Hem Pathologist Commnt Sodium 137 Potassium 4.1 Chloride 108 Carbon Dioxide 24 Anion Gap 5 BUN 26 H Creatinine 0.78 Est GFR ( Amer) 93.6 Est GFR (Non-Af Amer) 72.8 BUN/Creatinine Ratio 33.3 H Glucose 92 POC Glucose (mg/dL) 103 Calcium 8.5 L Total Bilirubin 1.30 H AST 50 H ALT 25 Alkaline Phosphatase 48 C-Reactive Protein 80.80 H Total Protein 6.1 L Albumin 2.7 L Globulin 3.4 Albumin/Globulin Ratio 0.8 L Xray right femur revealed right distal femur fracture Assessment: 72 y/o F Right distal femur fracture d/t fall; ICU due to rhabdo, sepsis unknown source, and ADELAIDA Plan: ADELAIDA and sepsis improving Continue ICU and hospitalist care Cont pain management Dr. Herrera to discuss risks and benefits of an ORIF of the distal femur with patient and family. <Silvana Mcmanus - Last Filed: 01/23/17 09:55> - Progress Note SOAP: Examined pt this morning and discussed her fracture with the patient's sister Deandra. Just dictated a formal clinic note. Assessment: Right distal femur fracture Morbid obesity Rhabdo Severe sepsis, UTI CAD, s/p CABG, severe , pulmonary artery aneurysm Plan: - Non-weight bearing RLE - DVT prophylaxis per medicine, heparin SQ - Pain management - If/when sepsis clears, we will discuss with medicine/cardiology/anesthesia/ family whether the patient is safe for ORIF distal femur. Surgery might lead to possible return to (baseline, extremely limited) ambulatory status, but entails cardiac risks of anesthesia. <Oscar Herrera - Last Filed: 01/23/17 14:31>
[2017-01-23] MEDS: Cefepime(*) 2 GM in NS 0.9% 50 ML* 50 ML IVPB SCH ×2 (11:16→23:48)
--- NOTE | 2017-01-23 13:11 | PN ---
Subjective Date of Service: 01/23/17 Interval History: HOSPITALIST PROGRESS NOTE Patient seen and examined at bedside. She denies pain, offers no complaints at this time. Family History: Unchanged from Admission Social History: Unchanged from Admission Past Medical History: Unchanged from Admission Objective Active Medications: Acetaminophen (Tylenol Tab*) 650 mg PO Q4H PRN PRN Reason: FEVER/PAIN Last Admin: 01/22/17 20:54 Dose: 650 mg Al Hydrox/Mg Hydrox/Simethicone (Maalox Plus*) 30 ml PO Q6H PRN PRN Reason: INDIGESTION Aspirin (Aspirin Ec Low Dose*) 81 mg PO DAILY [facility] Last Admin: 01/23/17 09:17 Dose: 81 mg Dextrose (D50w Syringe 50 Ml*) 12.5 gm IV PUSH .FOR FS < 60 - SS PRN PRN Reason: FS < 60 Docusate Sodium (Colace Cap*) 100 mg PO BID PRN PRN Reason: CONSTIPATION Dronedarone (Multaq Tab*) 400 mg PO BID [facility] Last Admin: 01/23/17 09:17 Dose: 400 mg Heparin Sodium (Porcine) (Heparin Vial(*)) 5,000 units SUBCUT Q8HR [facility] Last Admin: 01/23/17 05:27 Dose: 5,000 units Cefepime HCl 2 gm/ Sodium (Chloride) 50 mls @ 100 mls/hr IVPB Q12H [facility] Last Admin: 01/23/17 11:16 Dose: 100 mls/hr Sodium Chloride (Ns 0.9% 1000 Ml*) 1,000 mls @ 100 mls/hr IV PER RATE [facility] Last Admin: 01/23/17 11:16 Dose: 100 mls/hr Insulin Human Lispro (Humalog*) 0 units SUBCUT Q4HR [facility] PRN Reason: Protocol Last Admin: 01/23/17 10:10 Dose: Not Given Iodixanol (Visipaque* 320 (Contrast)) 141 ml IV ONCE [facility] Stop: 01/23/17 14:02 Last Admin: 01/21/17 14:49 Dose: 141 ml Morphine Sulfate (Morphine Inj (Syringe)*) 2 mg IV Q4H PRN PRN Reason: PAIN Nystatin (Nystatin Top Powder*) 1 applic TOPICAL TID [facility] Last Admin: 01/23/17 09:17 Dose: 1 applic Ondansetron HCl (Zofran Inj*) 4 mg IV Q4H PRN PRN Reason: NAUSEA/VOMITING Oxycodone/Acetaminophen (Percocet 5/325 Tab*) 1 tab PO Q4H PRN PRN Reason: Pain Last Admin: 01/23/17 09:17 Dose: 1 tab Senna (Senokot Tab*) 1 tab PO BID PRN PRN Reason: CONSTIPATION Vital Signs 01/23/17 01/23/17 01/23/17 10:00 10:10 11:32 Temperature 99.0 F 99.1 F 97.9 F Pulse Rate 88 89 86 Respiratory 19 17 18 Rate Blood Pressure 93/65 114/76 131/85 (mmHg) O2 Sat by Pulse 90 90 99 Oximetry Oxygen Devices in Use Now: Nasal Cannula Appearance: Elderly obese lady lying in bed in NAD. Eyes: No Scleral Icterus Ears/Nose/Mouth/Throat: Mucous Membranes Moist Neck: Trachea Midline Respiratory: Symmetrical Chest Expansion and Respiratory Effort, Clear to Auscultation Cardiovascular: RRR - Normal S1 and S2 Abdominal: NL Sounds; No Tenderness; No Distention Extremities: - - RLE is shorter and externally rotated Neurological: - - AAOx2 (self and place), BRAVO Lines/Tubes/Other Access: Clean, Dry and Intact Peripheral IV Nutrition: Taking PO's Result Diagrams: 01/23/17 09:06 01/23/17 09:07 Assess/Plan/Problems-Billing Assessment: Mrs. Walton is an 72yo F with PMH of morbid obesity with BMI 50, CVA, CAD s/p CABG 2007, pulmonic stenosis, CLAUDE non compliant with CPAP, HLD, Afib on Eliquis , type 2 DM, stasis dermatitis, brought in to ED after being found on the floor , confused, for unknown period of time. - Patient Problems (1) Severe sepsis Comment: - Patient met sepsis criteria on admission with leukocytosis, tachycardia, complicated by ADELAIDA and delirium. - Siginificant leukocytosis with left shift and bandemia. - Source seems to be E. coli UTI - UA showed negative nitrates and LE, trace WBCs, but culture grew E. coli. - There was some concern for endocarditis, but blood cultures are negative and patient/family declined SJ. - Continue IVF and Cefepime. (2) E. coli UTI Comment: - Present on admission, not Flowers catheter related. - Continue Cefepime. (3) Fall Comment: - Unclear if mechanical or syncopal. - Her RLE is externaly rotated and shorter, she has a bruise on the posterior aspect of her right hip, suggestive of fracture, but CT pelvis was negative. D/ w Ortho (Dr. Herrera) - recommended MRI pelvis, that was negative for fracture, showed only contusion involving right gluteal and adductor muscles. - Femur xray showed distal femur fracture - Dr. Herrera will talk to family re: management. (4) Delirium Comment: - Associated with severe sepsis. - Supportive care. (5) Rhabdomyolysis Comment: - Secondary to down time on the floor. - Trending down. (6) Troponin level elevated Comment: - Could be secondary to rhabdo, demand ischemic in the setting of severe sepsis, or NSTEMI. - Continue Aspirin. (7) ADELAIDA (acute kidney injury) Comment: - Suspect pre-renal in the setting of dehydration/sepsis. - Resolved. (8) Atrial fibrillation Comment: - Currently in Afib with HR in the 90s. - Eliquis on hold for possible procedures. (9) Diabetes Comment: - PO meds on hold - continue Lispro SS. (10) DVT prophylaxis Comment: - SQ heparin. (11) DNR (do not resuscitate) Status and Disposition: Inpatient. Transfer to Telemetry.
--- NOTE | 2017-01-23 20:04 | CONS ---
CONSULTATION NOTE: DATE OF CONSULT: 01/23/17 REASON FOR CONSULTATION: Possible right hip fracture. HISTORY OF PRESENT ILLNESS: The patient is a 72-year-old woman, who lives alone at [facility], a homebound ambulator with walker only, moving slowly, with multiple medical problems, status post CABG, morbid obesity, who was found down on the ground by neighbors on 01/20/17, the date of admission and brought to [facility] where she was found to have mental status changes, elevated creatine kinase consistent with rhabdomyolysis, and an E. coli urinary tract infection. The patient's sister reports that the patient had decreased energy over the 2 weeks prior to 01/20/17. She was less active and the patient's sister suspected she may have already had a urinary tract infection at that point. History was obtained from the patient's sister, Deandra, as well as from medicine history and physical and other consultation notes as the patient herself was incapable of providing any history. The patient was brought in by ambulance on January 20, , and noted to have mental status changes. The patient was able to express some level of right hip pain and was noted to have an externally rotated and shortened right lower extremity, therefore x-rays of the right hip were obtained. There was a question on right hip x-rays of a fracture, but it was very difficult to visualize secondary to the patient's obesity. In fact on lateral view, she could not view the femoral neck at all. We certainly could not assess whether or not there was a fracture present. I was called by the emergency department and asked to look at x-ray films. I agreed with the radiology read that the femoral neck fracture could not be ruled out. Therefore, I recommended that a CT scan be obtained. CT scan came back that night as negative for fracture. I recommended an MRI of the right hip when the CT was negative to evaluate for a possible nondisplaced femoral neck fracture or stress fracture, insufficiency fracture, that can at times be missed on CT scan. MRI of the right hip demonstrated no fracture of the right hip, pelvis or left hip. There was noted to be some soft-tissue edema in some of the musculature about the right hip including the hip abductor muscles. The following morning, I quickly went by the patient's room and eyeballed her, but she was asleep and difficult to arouse, so I deferred a full physical exam. Physician assistants from the orthopedic surgery service saw the patient several times. Ольга Schulte performed an exam that was concerning for a fracture about the right knee. X-rays of the right knee were ordered and demonstrated a fracture of the right distal femur, displaced and angulated. The patient has recently been transferred from the ICU to the telemetry 4th floor. For full medical history, defer to Dr. Shah's excellent documentation, but suffice to say, the patient has been very unwell, with continued inhibited mental status. Urine cultures were positive for E. coli and the patient's very elevated white blood cell count has reduced on IV antibiotics. The patient had a TTE, which demonstrated critical aortic stenosis as well as some pulmonic valve regurgitation and left ventricular hypertrophy. The patient refused SJ secondary to the possibility of requiring intubation subsequently. 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 CT scan also demonstrated a non-incarcerated large ventral abdominal hernia with bowel herniating through the muscular fascia. The patient is currently being treated for severe sepsis with leukocytosis, tachycardia, acute kidney disease and delirium. There is concern for endocarditis, although blood cultures have been negative and the SJ has been declined. The patient is on cefepime. Supportive care is being provided for the delirium. Creatine kinase levels as a result of rhabdomyolysis decreasing. The troponin levels that were elevated at admission are decreasing, thought likely to be secondary to rhabdomyolysis or demand cardiac ischemia in the setting of severe sepsis. A prerenal azotemia has resolved. The patient continues to be rate controlled on atrial fibrillation, although her Eliquis is being held and the patient is being treated with lispro sliding scale for her diabetes. Heparin subcu has been provided for DVT prophylaxis. With regards to the patient's fall and what hurts currently on her body, the patient and her family are of limited utility. The patient does not know how she fell and is not able to communicate that. The patient is unable to communicate what hurts with me now, although, per report, she has been awake enough to communicate previously to others that she has right lower extremity pain. Several maneuvers on physical exam, see below, caused discomfort. PAST MEDICAL HISTORY: 1. Old cerebrovascular accident per head CT showing frontal lobe infarct, past. 2. Coronary artery disease. 3. Pulmonic stenosis. 4. Obstructive sleep apnea, intolerant of CPAP. 5. Hyperlipidemia. 6. Atrial fibrillation. 7. Diabetes. 8. Stasis dermatitis. 9. Morbid obesity. PAST SURGICAL HISTORY: 1. Coronary artery bypass graft surgery in 2007. 2. Dilatation and curettage. MEDICATIONS AT ADMISSION: 1. Lopressor. 2. Zocor. 3. Glipizide. 4. Januvia. 5. Eliquis. 6. Aspirin. 7. Multaq. 8. Steroid cream. ALLERGIES: No known drug allergies. SOCIAL HISTORY: The patient's sister, Deandra, is her healthcare proxy. REVIEW OF SYSTEMS: Unable to obtain because the patient is minimally responsive. PHYSICAL EXAM: A 97.9 degrees Fahrenheit, pulse 86, blood pressure 131/85, respirations 18, O2 saturation 99% on 2 L of nasal cannula oxygen. The patient is sleeping comfortably. The patient did not respond to commands at first due to being asleep. She responded to a loud voice by opening her eyes momentarily. When I manipulated her right knee, she would open her eyes and acknowledge pain and then go back to sleep. With some manipulation of the fracture, very brief, and talking to her, I was able to get the patient to stay awake for 5 to 10 seconds several times. The patient was not able to clearly articulate answers. She seemed to acknowledge my presence and attempt answers, but no clearly articulated answers were obtained. (According to nursing, the patient was given 1 Percocet in the ICU prior to transfer to the floor and that may have led to some reduced mental status). (According to Dr. Shah, the patient and Dr. Shah this morning were able to discuss surgical and nonsurgical management of her distal femur fracture). The patient is morbidly obese. She is lying in bed with the head of bed elevated at least 30 degrees. She has massive folds of skin including her abdominal pannus. She has skin irritation, but not full skin breakdown underneath her pendulous breasts. She has a clear umbilical ventral hernia, but no tenderness to palpation about it. Extremely large abdominal pannus with irritated reddened skin inferior to it. No obvious skin breakdown. Examination of the right lower extremity reveals it to be externally rotated. At least some of the external rotation seems accommodative to the knee flexion that she has currently, approximately 45 degrees, so too is the right lower extremity shortening likely secondary to flexion of the knee joint. The patient was able to wiggle her toes in right foot on command. This confirmed active flexion and extension of the right ankle and toes. This response was very minimal however, and so I could not assess the strength grading on 0 to 5 spectrum. Right foot is well perfused, cap refill is less than 2 seconds. Venous stasis changes about bilateral lower legs with discoloration of the skin. This appears dry and there is no blistering or skin breakdown. Positive tenderness to palpation of the distal femur and knee. Positive pain with attempted passive flexion or extension of the knee joint. About the knee joint , difficult to determinate if there is soft tissue swelling given the amount of obesity. No open skin, no ecchymosis. I had a nurse and a nurse's aide roll the patient for me allowing examination about the posterior and lateral right hip as well as the back. The patient had no consistent tenderness to palpation about the right hip joint. No consistent tenderness to palpation at the thoracic or lumbar spine, midline or paraspinal. Some skin irritation about the sacrum, but no obvious full thickness skin breakdown yet. Passive range of motion of the hip was not feasible without mobilizing the knee and causing significant discomfort. Evaluation of the left lower extremity revealed no tenderness to palpation about the left hip, consistently. The patient, however, did have pain with more than 20 degrees of passive arc of range of motion of the left hip. IMAGING: X-rays, 4 views of the right hip from January 20, were reviewed and demonstrate no clear fracture, although could not exclude femoral neck fracture based on these films. CT scan of the pelvis performed on 01/21/17, demonstrates no right or left hip fracture or pelvis fracture. MRI of the pelvis obtained on 01/21/17, was reviewed and demonstrates no fracture of either hip or pelvis, although there is some edema consistent with a contusion of the right gluteal german and medius muscles as well as adductor longus and prateek. X-rays of the right knee, 1-view lateral and x-rays of the right femur, 4 views , each obtained on January 22, demonstrate a distal right femur fracture with anterior apex angulation, representing significant flexion at the fracture site as is per the norm for these fractures. The patient also has significant osteopenia present of the distal femur and proximal tibia visualized. LABORATORY VALUES: Relevant laboratory values include white blood cell count 12.9, INR of 1.3, CRP 80, creatinine 0.78, fingerstick glucose 134, urine culture positive for E. coli, creatine kinase 1180 on January 22. ASSESSMENT: 1. Right distal femur fracture, angulated and displaced. 2. Right distal femur osteopenia. 3. Recent urinary tract infection and sepsis, and mental status changes as well as rhabdomyolysis. 4. Multiple medical problems including morbid obesity, and multiple cardiac problems including history of coronary artery bypass graft surgery, severe aortic stenosis, and pulmonary artery aneurysm. PLAN: 1. I discussed with Dr. Shah as well as the patient's sister, the patient's injury, right distal femur fracture and recommended treatment options. 2. Ordinarily, in a patient who can tolerate anesthesia and is ambulatory, the treatment for this fracture would be an open reduction and internal fixation of the right distal femur with plate and screws. This operation is done, so that the bone can heal in aligned position, the patient can start moving the knee joint in bed to avoid stiffness and the bone can heal enabling weightbearing approximately 2 months postoperatively. 3. Given this patient's obesity and osteopenia, this operation would be a little bit more of risk of hardware failure or impaired healing, but would still be recommended. 4. It is not clear that this patient, however, is safe or interested in a procedure requiring spinal anesthesia or general anesthesia. We will have to consult the patient, assuming her mental status improves, the patient's sister, and produce field merchandiser, as well as anesthesia, to determine if her clinical status improves next week, would be a safe candidate for surgical interventions specifically open reduction and internal fixation of the right distal femur. 5. I relayed my thoughts directly to Dr. Shah and to the patient's sister, Deandra. 6. The patient, currently unstable with severe sepsis, is certainly not a candidate for surgery. If and when her clinical status improves next week, we can revisit the idea of possible surgery, if it is safe from a cardiac standpoint and the patient is interested. I will continue to follow every several days and communicating with Dr. Shah. 7. Would the patient not opt for surgery, she would be made comfortable in bed and would likely not be able to bear weight through that right lower extremity for at least 6 weeks. If the fracture heals in its current position, she may have a significant limitation in knee range of motion even if she is able to weight bear pain free in the future. 8. Another option I had briefly thought of to manage this patient might include skeletal traction with a pin through the proximal tibia, but I do not think the patient would tolerate this well for a prolonged period of time, over 4 weeks. [id number]/CPS #: [id number] MTDD
[2017-01-24] MEDS: Insulin LISPRO* 1 UNITS UNIT SUBCUT SCH ×6 (02:30→22:38)
[2017-01-24] MEDS: Heparin VIAL(*) 5000 UNITS/ML VIAL (FIVE THOUSAND) SUBCUT SCH ×3 (06:20→22:38)
[2017-01-24] MEDS: NS 0.9% 1000 ML* 1,000 ML IV SCH (06:36)
[2017-01-24] MEDS: Aspirin EC Low Dose* 81 MG TAB.EC PO SCH (07:54)
[2017-01-24] MEDS: Dronedarone TAB* 400 MG PO SCH ×2 (07:54→21:29)
[2017-01-24] MEDS: oxyCODONE/Acetamin 5/325 MG* TAB PO PRN (07:55)
[2017-01-24] MEDS: Nystatin TOP POWDER* 15 GM BTL TOPICAL SCH ×3 (07:57→21:29)
--- NOTE | 2017-01-24 09:35 | PN ---
Progress Note - Progress Note SOAP: Subjective: Pt is doing well. Mentation has improved she is able to state where she is. She only has pain with movement of the leg. Denies CP, SOB, lightheadedness or fever/chills. VSS overnight. Objective: PE- 72 obese F NAD, mentation improved RLE-chronic skin changes lower legs bilaterally, tenderness to palpation over lateral hip and knee, calf firm due to skin changes but nontender, +PF/DF ankle , able to wiggle toes, +1 DP pulse, sensation intact Vital Signs Temp Pulse Resp BP Pulse Ox 97.9 F 80 20 125/72 96 01/24/17 03:43 01/24/17 07:39 01/24/17 07:55 01/24/17 07:39 01/24/17 07:39 Laboratory Results - last 24 hr 01/23/17 01/23/17 01/23/17 09:07 13:25 16:56 Sodium 137 Potassium 4.1 Chloride 108 Carbon Dioxide 24 Anion Gap 5 BUN 26 H Creatinine 0.78 Est GFR ( Amer) 93.6 Est GFR (Non-Af Amer) 72.8 BUN/Creatinine Ratio 33.3 H Glucose 92 POC Glucose (mg/dL) 134 H 91 Calcium 8.5 L Total Bilirubin 1.30 H AST 50 H ALT 25 Alkaline Phosphatase 48 C-Reactive Protein 80.80 H Total Protein 6.1 L Albumin 2.7 L Globulin 3.4 Albumin/Globulin Ratio 0.8 L 01/23/17 01/24/17 01/24/17 22:10 02:29 06:05 Sodium Potassium Chloride Carbon Dioxide Anion Gap BUN Creatinine Est GFR ( Amer) Est GFR (Non-Af Amer) BUN/Creatinine Ratio Glucose POC Glucose (mg/dL) 117 H 104 97 Calcium Total Bilirubin AST ALT Alkaline Phosphatase C-Reactive Protein Total Protein Albumin Globulin Albumin/Globulin Ratio 01/24/17 09:02 Sodium Potassium Chloride Carbon Dioxide Anion Gap BUN Creatinine Est GFR ( Amer) Est GFR (Non-Af Amer) BUN/Creatinine Ratio Glucose POC Glucose (mg/dL) 101 Calcium Total Bilirubin AST ALT Alkaline Phosphatase C-Reactive Protein Total Protein Albumin Globulin Albumin/Globulin Ratio Assessment: R distal femur fx morbid obesity rhabdo severe sepsis, UTI CAD s/p CABG, severe , pulmonary artery aneurysm Plan: NWB RLE DVT prophylaxis per hospitalist-SQ heparin Appreciate hospitalist input Cont pain mgmt Possible ORIF when sepsis clears, will need medical/cardiology/anesthesia clearance before proceeding
[2017-01-24] MEDS: Cefepime(*) 2 GM in NS 0.9% 50 ML* 50 ML IVPB SCH (11:31)
[2017-01-24 13:58] LABS: BUN/Creatinine Ratio 28.6 (8-20); Calcium 8.2 mg/dL (8.6-10.3); EGFR Non-African American 73.9 (>60); Potassium 4.3 mmol/L (3.5-5.0)
--- NOTE | 2017-01-24 16:19 | PN ---
Subjective Date of Service: 01/24/17 Interval History: HOSPITALIST PROGRESS NOTE Patient seen and examined at bedside. She offers no complaints at this time, denies pain. Family History: Unchanged from Admission Social History: Unchanged from Admission Past Medical History: Unchanged from Admission Objective Active Medications: Acetaminophen (Tylenol Tab*) 650 mg PO Q4H PRN PRN Reason: FEVER/PAIN Last Admin: 01/22/17 20:54 Dose: 650 mg Al Hydrox/Mg Hydrox/Simethicone (Maalox Plus*) 30 ml PO Q6H PRN PRN Reason: INDIGESTION Aspirin (Aspirin Ec Low Dose*) 81 mg PO DAILY [facility] Last Admin: 01/24/17 07:54 Dose: 81 mg Dextrose (D50w Syringe 50 Ml*) 12.5 gm IV PUSH .FOR FS < 60 - SS PRN PRN Reason: FS < 60 Docusate Sodium (Colace Cap*) 100 mg PO BID PRN PRN Reason: CONSTIPATION Dronedarone (Multaq Tab*) 400 mg PO BID [facility] Last Admin: 01/24/17 07:54 Dose: 400 mg Heparin Sodium (Porcine) (Heparin Vial(*)) 5,000 units SUBCUT Q8HR [facility] Last Admin: 01/24/17 13:02 Dose: 5,000 units Cefepime HCl 2 gm/ Sodium (Chloride) 50 mls @ 100 mls/hr IVPB Q12H [facility] Last Admin: 01/24/17 11:31 Dose: 100 mls/hr Sodium Chloride (Ns 0.9% 1000 Ml*) 1,000 mls @ 50 mls/hr IV PER RATE [facility] Last Admin: 01/24/17 06:36 Dose: 50 mls/hr Insulin Human Lispro (Humalog*) 0 units SUBCUT Q4HR [facility] PRN Reason: Protocol Last Admin: 01/24/17 13:12 Dose: Not Given Morphine Sulfate (Morphine Inj (Syringe)*) 2 mg IV Q4H PRN PRN Reason: PAIN Nystatin (Nystatin Top Powder*) 1 applic TOPICAL TID [facility] Last Admin: 01/24/17 13:03 Dose: 1 applic Ondansetron HCl (Zofran Inj*) 4 mg IV Q4H PRN PRN Reason: NAUSEA/VOMITING Oxycodone/Acetaminophen (Percocet 5/325 Tab*) 1 tab PO Q4H PRN PRN Reason: Pain Last Admin: 01/24/17 07:55 Dose: 1 tab Senna (Senokot Tab*) 1 tab PO BID PRN PRN Reason: CONSTIPATION Vital Signs 01/24/17 01/24/17 01/24/17 07:55 09:46 11:44 Temperature 97.6 F Pulse Rate 78 Respiratory 20 18 22 Rate Blood Pressure 123/56 (mmHg) O2 Sat by Pulse 98 Oximetry Oxygen Devices in Use Now: Nasal Cannula Appearance: Elderly morbid obese lady lying in bed in NAD. Eyes: No Scleral Icterus Ears/Nose/Mouth/Throat: Mucous Membranes Moist Neck: Trachea Midline Respiratory: Symmetrical Chest Expansion and Respiratory Effort, Clear to Auscultation Cardiovascular: RRR - Normal S1 and S2, +SM Abdominal: NL Sounds; No Tenderness; No Distention Extremities: - - RLE is shorter and externally rotated Neurological: - - AAOx1 (self), BRAVO Lines/Tubes/Other Access: Clean, Dry and Intact Peripheral IV Nutrition: Taking PO's Result Diagrams: 01/23/17 09:06 01/24/17 13:16 Assess/Plan/Problems-Billing Assessment: Mrs. Walton is an 72yo F with PMH of morbid obesity with BMI 50, CVA, CAD s/p CABG 2007, pulmonic stenosis, CLAUDE non compliant with CPAP, HLD, Afib on Eliquis , type 2 DM, stasis dermatitis, brought in to ED after being found on the floor , confused, for unknown period of time. - Patient Problems (1) Severe sepsis Comment: - Patient met sepsis criteria on admission with leukocytosis, tachycardia, complicated by ADELAIDA and delirium. - Siginificant leukocytosis with left shift and bandemia. - Source seems to be E. coli UTI - UA showed negative nitrates and LE, trace WBCs, but culture grew E. coli. - There was some concern for endocarditis, but blood cultures are negative and patient/family declined SJ. - Continue IVF and Cefepime. (2) E. coli UTI Comment: - Present on admission, not Flowers catheter related. - Continue Cefepime. (3) Fall Comment: - Unclear if mechanical or syncopal. - Her RLE is externaly rotated and shorter, she has a bruise on the posterior aspect of her right hip, suggestive of fracture, but CT pelvis was negative. D/ w Ortho (Dr. Herrera) - recommended MRI pelvis, that was negative for fracture, showed only contusion involving right gluteal and adductor muscles. - Femur xray showed distal femur fracture - Dr. Herrera will talk to family re: management. (4) Delirium Comment: - Associated with severe sepsis. - Supportive care. (5) Rhabdomyolysis Comment: - Secondary to down time on the floor. - Trending down. (6) Troponin level elevated Comment: - Could be secondary to rhabdo, demand ischemic in the setting of severe sepsis, or NSTEMI. - Continue Aspirin. (7) ADELAIDA (acute kidney injury) Comment: - Suspect pre-renal in the setting of dehydration/sepsis. - Resolved. (8) Atrial fibrillation Comment: - Currently in Afib with HR in the 90s. - Eliquis on hold for possible procedures. (9) Diabetes Comment: - PO meds on hold - continue Lispro SS. (10) DVT prophylaxis Comment: - SQ heparin. (11) DNR (do not resuscitate) Status and Disposition: Inpatient.
[2017-01-25] MEDS: Cefepime(*) 2 GM in NS 0.9% 50 ML* 50 ML IVPB SCH ×2 (00:08→13:37)
[2017-01-25] MEDS: Insulin LISPRO* 1 UNITS UNIT SUBCUT SCH ×4 (02:35→17:37)
[2017-01-25] MEDS: NS 0.9% 1000 ML* 1,000 ML IV SCH (05:49)
[2017-01-25] MEDS: Heparin VIAL(*) 5000 UNITS/ML VIAL (FIVE THOUSAND) SUBCUT SCH ×3 (05:49→21:01)
[2017-01-25 05:53] LABS: Hematocrit 34 % (35-47); Hemoglobin 10.8 g/dl (12.0-16.0); Mean Corpuscular HGB Conc 32 g/dl (31-36); Mean Corpuscular Hemoglobin 31 pg (27-31); Mean Corpuscular Volume 98 fL (80-97); Mean Platelet Volume 9 um3 (7.4-10.4); Red Blood Count 3.43 10^6/ul (4.0-5.4); Red Cell Distribution Width 16 % (10.5-15); White Blood Count 10.6 10^3/ul (3.5-10.8)
[2017-01-25 06:05] LABS: BUN/Creatinine Ratio 22.7 (8-20); Calcium 8.1 mg/dL (8.6-10.3); EGFR African American 81.5 (>60); EGFR Non-African American 63.3 (>60); Potassium 4.4 mmol/L (3.5-5.0)
--- NOTE | 2017-01-25 09:19 | PN ---
Subjective Date of Service: 01/25/17 Interval History: Patient seen and examined at bedside. She denies CP, SOB, abd pain, n/v. Offers no acute complaints other than leg pain "when they move me." She is able to tell me that she is from [place]; however, she is disoriented to time and situation and cannot recall if she has used oxygen in the past. She does not recall the events leading up to this hospitalization. Nursing expressed concern for decreased ROM of right arm. Patient cannot actively move RUE without assistance. She thinks this is new. Telemetry: Sinus Rhythm 80s with PACs Family History: Unchanged from Admission Social History: Unchanged from Admission Past Medical History: Unchanged from Admission Objective Active Medications: Acetaminophen (Tylenol Tab*) 650 mg PO Q4H PRN PRN Reason: FEVER/PAIN Last Admin: 01/22/17 20:54 Dose: 650 mg Al Hydrox/Mg Hydrox/Simethicone (Maalox Plus*) 30 ml PO Q6H PRN PRN Reason: INDIGESTION Aspirin (Aspirin Ec Low Dose*) 81 mg PO DAILY [facility] Last Admin: 01/24/17 07:54 Dose: 81 mg Dextrose (D50w Syringe 50 Ml*) 12.5 gm IV PUSH .FOR FS < 60 - SS PRN PRN Reason: FS < 60 Docusate Sodium (Colace Cap*) 100 mg PO BID PRN PRN Reason: CONSTIPATION Dronedarone (Multaq Tab*) 400 mg PO BID [facility] Last Admin: 01/24/17 21:29 Dose: 400 mg Heparin Sodium (Porcine) (Heparin Vial(*)) 5,000 units SUBCUT Q8HR [facility] Last Admin: 01/25/17 05:49 Dose: 5,000 units Cefepime HCl 2 gm/ Sodium (Chloride) 50 mls @ 100 mls/hr IVPB Q12H [facility] Last Admin: 01/25/17 00:08 Dose: 100 mls/hr Sodium Chloride (Ns 0.9% 1000 Ml*) 1,000 mls @ 50 mls/hr IV PER RATE [facility] Last Admin: 01/25/17 05:49 Dose: 50 mls/hr Insulin Human Lispro (Humalog*) 0 units SUBCUT Q4HR [facility] PRN Reason: Protocol Last Admin: 01/25/17 05:44 Dose: Not Given Morphine Sulfate (Morphine Inj (Syringe)*) 2 mg IV Q4H PRN PRN Reason: PAIN Nystatin (Nystatin Top Powder*) 1 applic TOPICAL TID [facility]AC[facility] Last Admin: 01/24/17 21:29 Dose: 1 applic Ondansetron HCl (Zofran Inj*) 4 mg IV Q4H PRN PRN Reason: NAUSEA/VOMITING Oxycodone/Acetaminophen (Percocet 5/325 Tab*) 1 tab PO Q4H PRN PRN Reason: Pain Last Admin: 01/24/17 07:55 Dose: 1 tab Senna (Senokot Tab*) 1 tab PO BID PRN PRN Reason: CONSTIPATION Vital Signs 01/24/17 01/24/17 01/24/17 09:46 11:44 15:30 Temperature 97.6 F 98.3 F Pulse Rate 78 79 Respiratory 18 22 22 Rate Blood Pressure 123/56 142/71 (mmHg) O2 Sat by Pulse 98 97 Oximetry 01/24/17 01/24/17 01/24/17 19:57 20:00 23:57 Temperature 97.4 F 97.9 F Pulse Rate 79 81 Respiratory 22 22 16 Rate Blood Pressure 132/74 132/73 (mmHg) O2 Sat by Pulse 99 99 Oximetry 01/25/17 01/25/17 03:59 07:24 Temperature 97.5 F 97.9 F Pulse Rate 67 71 Respiratory 18 20 Rate Blood Pressure 106/47 132/71 (mmHg) O2 Sat by Pulse 100 100 Oximetry Oxygen Devices in Use Now: Nasal Cannula Appearance: Elderly female, lying in bed, in NAD Eyes: No Scleral Icterus Ears/Nose/Mouth/Throat: Mucous Membranes Moist Neck: NL Appearance and Movements; NL JVP Respiratory: Symmetrical Chest Expansion and Respiratory Effort, Clear to Auscultation Cardiovascular: RRR - S1, S2, systolic murmur Abdominal: NL Sounds; No Tenderness; No Distention Extremities: - - RLE shortening and external rotation, distal pulses intact. RUE with 3/5 strength. Abduction/Adduction intact with passive ROM. Neurological: - - Alert, oriented to self only, BRAVO Lines/Tubes/Other Access: Clean, Dry and Intact Peripheral IV Nutrition: Taking PO's Result Diagrams: 01/25/17 05:38 01/25/17 05:38 Additional Lab and Data: Lab Results 0501/20/17 01/20/17 Range/Units 21:30 21:30 21:30 WBC 29.9 H (3.5-10.8) 10^3/ul RBC 4.81 (4.0-5.4) 10^6/ul Hgb 14.7 (12.0-16.0) g/dl Hct 47 (35-47) % MCV 97 (80-97) fL MCH 31 (27-31) pg MCHC 31 (31-36) g/dl RDW 17 H (10.5-15) % Plt Count 263 (150-450) 10^3/ul MPV 10 (7.4-10.4) um3 Immature Gran % (Auto) 5 (0-9) % Absolute Neuts (auto) 28.4 H (1.5-7.7) 10^3/ul Absolute Lymphs (auto) 0.9 L (1.0-4.8) 10^3/ul Absolute Monos (auto) 0.6 (0-0.8) 10^3/ul Absolute Eos (auto) 0 (0-0.6) 10^3/ul Absolute Basos (auto) 0 (0-0.2) 10^3/ul Absolute Nucleated RBC 0 10^3/ul Neutrophils % 90 H (38-83) % Band Neutrophils % 5 (0-8) % Lymphocytes % 3 L (25-47) % Monocytes % 2 (0-13) % Toxic Granulation 2+ Normal RBC Morphology Not Reportable Hem Pathologist Commnt Sodium 134 (133-145) mmol/L Potassium TNP Chloride 97 L (101-111) mmol/L Carbon Dioxide 25 (22-32) mmol/L Anion Gap TNP BUN 40 H (6-24) mg/dL Creatinine 1.25 H (0.51-0.95) mg/dL Est GFR ( Amer) 54.3 (>60) Est GFR (Non-Af Amer) 42.2 (>60) BUN/Creatinine Ratio 32.0 H (8-20) Glucose 204 H (70-100) mg/dL Lactic Acid 2.4 H* (0.5-2.0) mmol/L Calcium 9.2 (8.6-10.3) mg/dL Total Bilirubin 1.30 H (0.2-1.0) mg/dL AST TNP ALT 27 (7-52) U/L Alkaline Phosphatase 72 (34-104) U/L Total Creatine Kinase 6977 H (10-223) U/L Troponin I 0.09 H* (<0.04) ng/mL Total Protein 8.5 (6.4-8.9) g/dL Albumin 3.5 (3.2-5.2) g/dL Globulin 5.0 H (2-4) g/dL Albumin/Globulin Ratio 0.7 L (1-3) Microbiology and Other Data: Microbiology 01/21/17 01:54 Nasal Screen MRSA (PCR)(HENRRY) - Final Nasal Mrsa Negative Assess/Plan/Problems-Billing Assessment: Mrs. Walton is an 72yo F with PMH of morbid obesity with BMI 50, CVA, CAD s/p CABG 2007, pulmonic stenosis, CLAUDE non compliant with CPAP, HLD, Afib on Eliquis , type 2 DM, stasis dermatitis, brought in to ED after being found on the floor , confused, for unknown period of time. - Patient Problems (1) Severe sepsis Code(s): A41.9 - SEPSIS, UNSPECIFIED ORGANISM; R65.20 - SEVERE SEPSIS WITHOUT SEPTIC SHOCK Comment: - Patient met sepsis criteria on admission with a qSOFA score of 2 (increased RR , AMS) and with SIRS/sepsis criteria of leukocytosis, tachycardia, complicated by ADELAIDA and delirium. - Siginificant leukocytosis with left shift and bandemia. - Source seems to be E. coli UTI - UA showed negative nitrates and LE, trace WBCs, but culture grew E. coli. - There was some concern for endocarditis, but blood cultures are negative. Patient/family declined SJ. - Continue IVF and Cefepime. (2) E. coli UTI Code(s): N39.0 - URINARY TRACT INFECTION, SITE NOT SPECIFIED; B96.20 - UNSP ESCHERICHIA COLI THE CAUSE OF DISEASES CLASSD ELSWHR Comment: - Present on admission, not Flowers catheter related. - Continue Cefepime. (3) Fall Comment: - Femur XR showed distal femur fracture. Ortho offers possibility of ORIF once medically stable. - Follow-up cardiology consult requested to help guide family with regards to risk, given patient's cardiac status. - RUE LROM - obtain shoulder XR, unsure of acuity of this. - Unclear if cause of fall is mechanical or syncopal. - Her RLE is externally rotated and shorter, she has a bruise on the posterior aspect of her right hip, suggestive of fracture, but CT pelvis was negative. D/ w Ortho (Dr. Herrera) - recommended MRI pelvis which was negative for fracture, showed only contusion involving right gluteal and adductor muscles. (4) Delirium Code(s): R41.0 - DISORIENTATION, UNSPECIFIED Comment: - Associated with severe sepsis. - Supportive care. (5) Rhabdomyolysis Code(s): M62.82 - RHABDOMYOLYSIS Comment: - Secondary to down time on the floor. - Trending down. (6) Troponin level elevated Code(s): R74.8 - ABNORMAL LEVELS OF OTHER SERUM ENZYMES Comment: - Could be secondary to rhabdo, demand ischemia in the setting of severe sepsis , or NSTEMI. - Continue Aspirin. (7) ADELAIDA (acute kidney injury) Code(s): N17.9 - ACUTE KIDNEY FAILURE, UNSPECIFIED Comment: - Suspect pre-renal in the setting of dehydration/sepsis. - Resolved. (8) Atrial fibrillation Code(s): I48.91 - UNSPECIFIED ATRIAL FIBRILLATION Comment: - Currently in SR with HR in the 80s - 90s. - Eliquis on hold for possible procedures. (9) Diabetes Code(s): E11.9 - TYPE 2 DIABETES MELLITUS WITHOUT COMPLICATIONS Comment: - PO meds on hold - continue Lispro SS. (10) DVT prophylaxis Code(s): HKF2377 - Comment: - SQ heparin. (11) DNR (do not resuscitate) Status and Disposition: Inpatient. Continued LOS for antibiotics and surgical correction of femur fracture.
[2017-01-25] MEDS: Nystatin TOP POWDER* 15 GM BTL TOPICAL SCH ×3 (09:27→21:01)
[2017-01-25] MEDS: Aspirin EC Low Dose* 81 MG TAB.EC PO SCH (09:27)
[2017-01-25] MEDS: Dronedarone TAB* 400 MG PO SCH ×2 (09:27→21:01)
--- NOTE | 2017-01-25 11:43 | RAD ---
HISTORY: Decreased range of motion, pain, right shoulder COMPARISONS: None VIEWS: 4, Frontal internal rotation, external rotation, and outlet views of the right shoulder FINDINGS: BONE DENSITY: There is diffuse osteopenia. BONES: There is no displaced fracture. JOINTS: There is osteoarthritis of the glenohumeral joint ALIGNMENT: There is no dislocation. SOFT TISSUES: Unremarkable. OTHER FINDINGS: None. IMPRESSION: OSTEOARTHRITIS. NO ACUTE OSSEOUS INJURY. IF SYMPTOMS PERSIST, RECOMMEND REPEAT IMAGING.
[2017-01-26] MEDS: Cefepime(*) 2 GM in NS 0.9% 50 ML* 50 ML IVPB SCH ×2 (00:27→13:19)
[2017-01-26] MEDS: NS 0.9% 1000 ML* 1,000 ML IV SCH (05:03)
[2017-01-26] MEDS: Heparin VIAL(*) 5000 UNITS/ML VIAL (FIVE THOUSAND) SUBCUT SCH ×3 (05:03→21:42)
[2017-01-26] MEDS: Insulin LISPRO* 1 UNITS UNIT SUBCUT SCH ×3 (08:07→17:18)
[2017-01-26] MEDS: Aspirin EC Low Dose* 81 MG TAB.EC PO SCH (08:13)
[2017-01-26] MEDS: Nystatin TOP POWDER* 15 GM BTL TOPICAL SCH ×3 (08:13→21:42)
[2017-01-26] MEDS: Dronedarone TAB* 400 MG PO SCH ×2 (08:13→21:42)
[2017-01-26] MEDS: Morphine INJ* 2 MG/ML 1 ML SYRINGE IV PRN (08:23)
--- NOTE | 2017-01-26 11:29 | PN ---
Progress Note - Progress Note SOAP: Subjective: []Patient seen at bedside with sister and brother in law present. Her mentation has improved significantly since admission. She still cannot recall the events just prior or after her fall in her room. Her other sister, who is currently out of town is her health care proxy and is being kept aware of the current situation by family members present today. Objective: [] Vital Signs Temp 97.6 F 01/26/17 07:46 Pulse 79 01/26/17 07:46 Resp 20 01/26/17 08:23 BP 109/58 01/26/17 07:46 Pulse Ox 100 01/26/17 07:46 Intake & Output 01/25/17 01/26/17 01/26/17 18:59 06:59 18:59 Intake Total 600 1110 Output Total 550 670 Balance 50 440 Intake: IV Fluids 1055 ABX - CEFEPIME 78 NS (0.9%) 977 IVPB 55 ABX - CEFEPIME 55 Oral 600 0 Output: Flowers 550 670 Other: # Bowel Movements 0 # Voids 0 Laboratory Results - last 24 hr 01/25/17 01/25/17 01/25/17 12:12 16:51 21:00 POC Glucose (mg/dL) 145 H 180 H 142 H 01/26/17 07:59 POC Glucose (mg/dL) 119 H Right LE unchanged in position with some external rotation +venous stasis changes in BLE no specific calf tenderness +DF/PF right ankle Assessment: []Angulated right distal femur fracture s/p mechanical fall Plan: []Awaiting decision of surgical vs. conservative management from family once Cardiology/medical risks are reviewed on Heparin for DVT prophylaxis
--- NOTE | 2017-01-26 14:14 | PN ---
Subjective Date of Service: 01/26/17 Interval History: Patient seen and examined at bedside. Patient's brother and [id number] present. Patient does not endorse any acute complaints. She is more alert, though she does not always answer appropriately. She denies any right shoulder pain and can actively move the arm today. Dr. Lay met with patient and present family members to discuss options and cardiac risk. Patient and family made aware that they have the options of pursuing 3 treatment options: 1) Conservative management with no surgery and palliative care, 2) Proceeding with surgery here, understanding that her places her at high risk for complications chasidy-and post-operatively, and 3) Pursuing transfer to [facility] for valve replacement and having femur repaired following AVR. The patient was not able to state these options back to us and appeared to have difficulty managing the information. However, her brother and sister present were able to verbalize understanding and repeat back the options and risks. They plan to discuss this with the rest of the family, including Deandra, who is the oldest sister and apparent HCP. Family History: Unchanged from Admission Social History: Unchanged from Admission Past Medical History: Unchanged from Admission Objective Active Medications: Acetaminophen (Tylenol Tab*) 650 mg PO Q4H PRN PRN Reason: FEVER/PAIN Last Admin: 01/22/17 20:54 Dose: 650 mg Al Hydrox/Mg Hydrox/Simethicone (Maalox Plus*) 30 ml PO Q6H PRN PRN Reason: INDIGESTION Aspirin (Aspirin Ec Low Dose*) 81 mg PO DAILY [facility] Last Admin: 01/26/17 08:13 Dose: 81 mg Dextrose (D50w Syringe 50 Ml*) 12.5 gm IV PUSH .FOR FS < 60 - SS PRN PRN Reason: FS < 60 Docusate Sodium (Colace Cap*) 100 mg PO BID PRN PRN Reason: CONSTIPATION Dronedarone (Multaq Tab*) 400 mg PO BID [facility] Last Admin: 01/26/17 08:13 Dose: 400 mg Heparin Sodium (Porcine) (Heparin Vial(*)) 5,000 units SUBCUT Q8HR [facility] Last Admin: 01/26/17 13:19 Dose: 5,000 units Cefepime HCl 2 gm/ Sodium (Chloride) 50 mls @ 100 mls/hr IVPB Q12H [facility] Last Admin: 01/26/17 13:19 Dose: 100 mls/hr Sodium Chloride (Ns 0.9% 1000 Ml*) 1,000 mls @ 50 mls/hr IV PER RATE [facility] Last Admin: 01/26/17 05:03 Dose: 50 mls/hr Insulin Human Lispro (Humalog*) 0 units SUBCUT AC [facility] PRN Reason: Protocol Last Admin: 01/26/17 12:58 Dose: Not Given Morphine Sulfate (Morphine Inj (Syringe)*) 2 mg IV Q4H PRN PRN Reason: PAIN Last Admin: 01/26/17 08:23 Dose: 2 mg Nystatin (Nystatin Top Powder*) 1 applic TOPICAL TID [facility] Last Admin: 01/26/17 13:20 Dose: 1 applic Ondansetron HCl (Zofran Inj*) 4 mg IV Q4H PRN PRN Reason: NAUSEA/VOMITING Oxycodone/Acetaminophen (Percocet 5/325 Tab*) 1 tab PO Q4H PRN PRN Reason: Pain Last Admin: 01/24/17 07:55 Dose: 1 tab Senna (Senokot Tab*) 1 tab PO BID PRN PRN Reason: CONSTIPATION Vital Signs 01/25/17 01/25/17 01/26/17 15:26 20:00 00:32 Temperature 98.3 F 97.6 F Pulse Rate 72 71 Respiratory 20 20 16 Rate Blood Pressure 135/66 119/55 (mmHg) O2 Sat by Pulse 100 100 Oximetry 01/26/17 01/26/17 01/26/17 04:12 07:46 08:00 Temperature 98.2 F 97.6 F Pulse Rate 72 79 Respiratory 18 16 16 Rate Blood Pressure 108/47 109/58 (mmHg) O2 Sat by Pulse 99 100 Oximetry 01/26/17 01/26/17 01/26/17 08:23 09:23 11:56 Temperature 97.6 F Pulse Rate 78 Respiratory 20 16 16 Rate Blood Pressure 138/66 (mmHg) O2 Sat by Pulse 98 Oximetry Oxygen Devices in Use Now: Nasal Cannula Appearance: Elderly female, lying in bed, NAD Eyes: No Scleral Icterus Ears/Nose/Mouth/Throat: Mucous Membranes Moist Neck: NL Appearance and Movements; NL JVP Respiratory: Symmetrical Chest Expansion and Respiratory Effort, Clear to Auscultation Cardiovascular: RRR - S1, S2, systolic murmur Abdominal: NL Sounds; No Tenderness; No Distention Extremities: - - RLE shortened and externally rotated Skin: - - open area under right breast, venous stasis dermatitis to BLE Neurological: - - Alert, oriented to self, place. Forgetful. Lines/Tubes/Other Access: Clean, Dry and Intact Peripheral IV Nutrition: Taking PO's Result Diagrams: 01/25/17 05:38 01/25/17 05:38 Additional Lab and Data: Lab Results 01/20/17 01/20/17 01/20/17 Range/Units 21:30 21:30 21:30 WBC 29.9 H (3.5-10.8) 10^3/ul RBC 4.81 (4.0-5.4) 10^6/ul Hgb 14.7 (12.0-16.0) g/dl Hct 47 (35-47) % MCV 97 (80-97) fL MCH 31 (27-31) pg MCHC 31 (31-36) g/dl RDW 17 H (10.5-15) % Plt Count 263 (150-450) 10^3/ul MPV 10 (7.4-10.4) um3 Immature Gran % (Auto) 5 (0-9) % Absolute Neuts (auto) 28.4 H (1.5-7.7) 10^3/ul Absolute Lymphs (auto) 0.9 L (1.0-4.8) 10^3/ul Absolute Monos (auto) 0.6 (0-0.8) 10^3/ul Absolute Eos (auto) 0 (0-0.6) 10^3/ul Absolute Basos (auto) 0 (0-0.2) 10^3/ul Absolute Nucleated RBC 0 10^3/ul Neutrophils % 90 H (38-83) % Band Neutrophils % 5 (0-8) % Lymphocytes % 3 L (25-47) % Monocytes % 2 (0-13) % Toxic Granulation 2+ Normal RBC Morphology Not Reportable Hem Pathologist Commnt Sodium 134 (133-145) mmol/L Potassium TNP Chloride 97 L (101-111) mmol/L Carbon Dioxide 25 (22-32) mmol/L Anion Gap TNP BUN 40 H (6-24) mg/dL Creatinine 1.25 H (0.51-0.95) mg/dL Est GFR ( Amer) 54.3 (>60) Est GFR (Non-Af Amer) 42.2 (>60) BUN/Creatinine Ratio 32.0 H (8-20) Glucose 204 H (70-100) mg/dL Lactic Acid 2.4 H* (0.5-2.0) mmol/L Calcium 9.2 (8.6-10.3) mg/dL Total Bilirubin 1.30 H (0.2-1.0) mg/dL AST TNP ALT 27 (7-52) U/L Alkaline Phosphatase 72 (34-104) U/L Total Creatine Kinase 6977 H (10-223) U/L Troponin I 0.09 H* (<0.04) ng/mL Total Protein 8.5 (6.4-8.9) g/dL Albumin 3.5 (3.2-5.2) g/dL Globulin 5.0 H (2-4) g/dL Albumin/Globulin Ratio 0.7 L (1-3) Microbiology and Other Data: Microbiology 01/21/17 01:54 Nasal Screen MRSA (PCR)(HENRRY) - Final Nasal Mrsa Negative Assess/Plan/Problems-Billing Assessment: Mrs. Walton is an 72yo F with PMH of morbid obesity with BMI 50, CVA, CAD s/p CABG 2007, pulmonic stenosis, CLAUDE non compliant with CPAP, HLD, Afib on Eliquis , type 2 DM, stasis dermatitis, brought in to ED after being found on the floor , confused, for unknown period of time. - Patient Problems (1) Severe sepsis Code(s): A41.9 - SEPSIS, UNSPECIFIED ORGANISM; R65.20 - SEVERE SEPSIS WITHOUT SEPTIC SHOCK Comment: - Patient met sepsis criteria on admission with a qSOFA score of 2 (increased RR , AMS) and with SIRS/sepsis criteria of leukocytosis, tachycardia, complicated by ADELAIDA and delirium. - Siginificant leukocytosis with left shift and bandemia. - Source seems to be E. coli UTI - UA showed negative nitrates and LE, trace WBCs, but culture grew E. coli. - There was some concern for endocarditis, but blood cultures are negative. Patient/family declined SJ. - Change cefepime to cefuroxime. (2) E. coli UTI Code(s): N39.0 - URINARY TRACT INFECTION, SITE NOT SPECIFIED; B96.20 - UNSP ESCHERICHIA COLI THE CAUSE OF DISEASES CLASSD ELSWHR Comment: - Present on admission, not Flowers catheter related. - Continue cefuroxime. (3) Fall Comment: - Femur XR showed distal femur fracture. Ortho offers possibility of ORIF once medically stable. - Appreciate follow-up cardiology consult - Unclear if cause of fall is mechanical or syncopal. - Her RLE is externally rotated and shorter, she has a bruise on the posterior aspect of her right hip, suggestive of fracture, but CT pelvis was negative. D/ w Ortho (Dr. Herrera) - recommended MRI pelvis which was negative for fracture, showed only contusion involving right gluteal and adductor muscles. (4) Delirium Code(s): R41.0 - DISORIENTATION, UNSPECIFIED Comment: - Associated with severe sepsis. - Supportive care. (5) Rhabdomyolysis Code(s): M62.82 - RHABDOMYOLYSIS Comment: - Secondary to down time on the floor. - Trending down. (6) Troponin level elevated Code(s): R74.8 - ABNORMAL LEVELS OF OTHER SERUM ENZYMES Comment: - Could be secondary to rhabdo, demand ischemia in the setting of severe sepsis , or NSTEMI. - Continue Aspirin. (7) ADELAIDA (acute kidney injury) Code(s): N17.9 - ACUTE KIDNEY FAILURE, UNSPECIFIED Comment: - Suspect pre-renal in the setting of dehydration/sepsis. - Resolved. (8) Atrial fibrillation Code(s): I48.91 - UNSPECIFIED ATRIAL FIBRILLATION Comment: - Currently in SR with HR in the 80s - 90s. - Eliquis on hold for possible procedures. (9) Diabetes Code(s): E11.9 - TYPE 2 DIABETES MELLITUS WITHOUT COMPLICATIONS Comment: - PO meds on hold - continue Lispro SS. (10) DVT prophylaxis Code(s): [id number] - Comment: - SQ heparin. (11) DNR (do not resuscitate) Status and Disposition: Inpatient. Continued LOS for antibiotics and surgical correction of femur fracture. Family in discussion to decide if patient should transfer to [place] for valve replacement and subsequent femur fracture or if they wish to stay here for ORIF. Counseling and/or Coordination of Care Minutes: 55
[2017-01-26] MEDS: ceFUROXime TAB(*) 250 MG PO SCH (21:42)
[2017-01-27] MEDS: NS 0.9% 1000 ML* 1,000 ML IV SCH (04:04)
[2017-01-27] MEDS: Heparin VIAL(*) 5000 UNITS/ML VIAL (FIVE THOUSAND) SUBCUT SCH ×3 (05:01→21:44)
[2017-01-27 06:27] LABS: Hematocrit 33 % (35-47); Hemoglobin 10.4 g/dl (12.0-16.0); Mean Corpuscular HGB Conc 32 g/dl (31-36); Mean Corpuscular Hemoglobin 31 pg (27-31); Mean Corpuscular Volume 98 fL (80-97); Mean Platelet Volume 9 um3 (7.4-10.4); Red Blood Count 3.33 10^6/ul (4.0-5.4); Red Cell Distribution Width 16 % (10.5-15); White Blood Count 9.6 10^3/ul (3.5-10.8)
[2017-01-27 06:47] LABS: BUN/Creatinine Ratio 23.8 (8-20); C Reactive Protein 48.59 mg/L (< 5.00); Calcium 8.2 mg/dL (8.6-10.3); EGFR African American 119.8 (>60); EGFR Non-African American 93.2 (>60); Magnesium 1.8 mg/dL (1.9-2.7); Potassium 4.1 mmol/L (3.5-5.0)
[2017-01-27] MEDS ORDERED: Magnesium Sulfate 2 GM IV* 2 GM/50 ML BAG IVPB ONE (07:25)
[2017-01-27] MEDS: Insulin LISPRO* 1 UNITS UNIT SUBCUT SCH ×3 (07:47→17:39)
[2017-01-27] MEDS: Morphine INJ* 2 MG/ML 1 ML SYRINGE IV PRN ×3 (09:01→17:44)
[2017-01-27] MEDS: ceFUROXime TAB(*) 250 MG PO SCH ×2 (09:02→21:44)
[2017-01-27] MEDS: Dronedarone TAB* 400 MG PO SCH ×2 (09:02→21:44)
[2017-01-27] MEDS: Aspirin EC Low Dose* 81 MG TAB.EC PO SCH (09:02)
[2017-01-27] MEDS ORDERED: Lidocain 1% EPI 1:100,000 * 30 ML MDV INJ ONE (10:30)
--- NOTE | 2017-01-27 10:46 | PN ---
Subjective Date of Service: 01/27/17 Interval History: Patient seen and examined at bedside. She is pleasantly confused, does not remember me from previous days but states she is "feeling well" this morning. Denies CP, SOB. No acute nursing concerns. Family still in discussion regarding surgical options. Message left for patient' s sister. Family History: Unchanged from Admission Social History: Unchanged from Admission Past Medical History: Unchanged from Admission Objective Active Medications: Acetaminophen (Tylenol Tab*) 650 mg PO Q4H PRN PRN Reason: FEVER/PAIN Last Admin: 01/22/17 20:54 Dose: 650 mg Al Hydrox/Mg Hydrox/Simethicone (Maalox Plus*) 30 ml PO Q6H PRN PRN Reason: INDIGESTION Aspirin (Aspirin Ec Low Dose*) 81 mg PO DAILY [facility] Last Admin: 01/27/17 09:02 Dose: 81 mg Cefuroxime Axetil (Ceftin Tab(*)) 250 mg PO BID [facility] Last Admin: 01/27/17 09:02 Dose: 250 mg Dextrose (D50w Syringe 50 Ml*) 12.5 gm IV PUSH .FOR FS < 60 - SS PRN PRN Reason: FS < 60 Docusate Sodium (Colace Cap*) 100 mg PO BID PRN PRN Reason: CONSTIPATION Dronedarone (Multaq Tab*) 400 mg PO BID [facility] Last Admin: 01/27/17 09:02 Dose: 400 mg Heparin Sodium (Porcine) (Heparin Vial(*)) 5,000 units SUBCUT Q8HR [facility] Last Admin: 01/27/17 05:01 Dose: 5,000 units Sodium Chloride (Ns 0.9% 1000 Ml*) 1,000 mls @ 50 mls/hr IV PER RATE [facility] Last Admin: 01/27/17 04:04 Dose: 50 mls/hr Insulin Human Lispro (Humalog*) 0 units SUBCUT AC [facility] PRN Reason: Protocol Last Admin: 01/27/17 07:47 Dose: Not Given Morphine Sulfate (Morphine Inj (Syringe)*) 2 mg IV Q4H PRN PRN Reason: PAIN Last Admin: 01/27/17 09:01 Dose: 2 mg Nystatin (Nystatin Top Powder*) 1 applic TOPICAL TID [facility] Last Admin: 01/26/17 21:42 Dose: 1 applic Ondansetron HCl (Zofran Inj*) 4 mg IV Q4H PRN PRN Reason: NAUSEA/VOMITING Oxycodone/Acetaminophen (Percocet 5/325 Tab*) 1 tab PO Q4H PRN PRN Reason: Pain Last Admin: 01/24/17 07:55 Dose: 1 tab Senna (Senokot Tab*) 1 tab PO BID PRN PRN Reason: CONSTIPATION Vital Signs 01/26/17 01/26/17 01/26/17 11:56 16:41 19:36 Temperature 97.6 F 98.1 F 98.0 F Pulse Rate 78 81 81 Respiratory 16 22 18 Rate Blood Pressure 138/66 144/83 144/68 (mmHg) O2 Sat by Pulse 98 99 99 Oximetry 01/26/17 01/26/17 01/27/17 20:00 23:41 03:44 Temperature 98.5 F 98.2 F Pulse Rate 84 83 Respiratory 18 20 20 Rate Blood Pressure 129/61 124/61 (mmHg) O2 Sat by Pulse 98 98 Oximetry 01/27/17 01/27/17 07:23 09:01 Temperature 97.6 F Pulse Rate 83 Respiratory 12 16 Rate Blood Pressure 125/53 (mmHg) O2 Sat by Pulse 100 Oximetry Oxygen Devices in Use Now: Nasal Cannula Appearance: Elderly female, lying in bed, NAD Eyes: No Scleral Icterus Ears/Nose/Mouth/Throat: Mucous Membranes Moist Neck: NL Appearance and Movements; NL JVP Respiratory: Symmetrical Chest Expansion and Respiratory Effort, Clear to Auscultation Cardiovascular: RRR - S1, S2, +systolic murmur Abdominal: NL Sounds; No Tenderness; No Distention Extremities: - - RLE external rotated, distally vni Skin: - - venous stasis wounds to BLE Neurological: - - Alert, oriented to self Lines/Tubes/Other Access: Clean, Dry and Intact Peripheral IV Nutrition: Taking PO's Result Diagrams: 01/27/17 05:51 01/27/17 05:51 Additional Lab and Data: Lab Results 01/20/17 01/20/17 01/20/17 Range/Units 21:30 21:30 21:30 WBC 29.9 H (3.5-10.8) 10^3/ul RBC 4.81 (4.0-5.4) 10^6/ul Hgb 14.7 (12.0-16.0) g/dl Hct 47 (35-47) % MCV 97 (80-97) fL MCH 31 (27-31) pg MCHC 31 (31-36) g/dl RDW 17 H (10.5-15) % Plt Count 263 (150-450) 10^3/ul MPV 10 (7.4-10.4) um3 Immature Gran % (Auto) 5 (0-9) % Absolute Neuts (auto) 28.4 H (1.5-7.7) 10^3/ul Absolute Lymphs (auto) 0.9 L (1.0-4.8) 10^3/ul Absolute Monos (auto) 0.6 (0-0.8) 10^3/ul Absolute Eos (auto) 0 (0-0.6) 10^3/ul Absolute Basos (auto) 0 (0-0.2) 10^3/ul Absolute Nucleated RBC 0 10^3/ul Neutrophils % 90 H (38-83) % Band Neutrophils % 5 (0-8) % Lymphocytes % 3 L (25-47) % Monocytes % 2 (0-13) % Toxic Granulation 2+ Normal RBC Morphology Not Reportable Hem Pathologist Commnt Sodium 134 (133-145) mmol/L Potassium TNP Chloride 97 L (101-111) mmol/L Carbon Dioxide 25 (22-32) mmol/L Anion Gap TNP BUN 40 H (6-24) mg/dL Creatinine 1.25 H (0.51-0.95) mg/dL Est GFR ( Amer) 54.3 (>60) Est GFR (Non-Af Amer) 42.2 (>60) BUN/Creatinine Ratio 32.0 H (8-20) Glucose 204 H (70-100) mg/dL Lactic Acid 2.4 H* (0.5-2.0) mmol/L Calcium 9.2 (8.6-10.3) mg/dL Total Bilirubin 1.30 H (0.2-1.0) mg/dL AST TNP ALT 27 (7-52) U/L Alkaline Phosphatase 72 (34-104) U/L Total Creatine Kinase 6977 H (10-223) U/L Troponin I 0.09 H* (<0.04) ng/mL Total Protein 8.5 (6.4-8.9) g/dL Albumin 3.5 (3.2-5.2) g/dL Globulin 5.0 H (2-4) g/dL Albumin/Globulin Ratio 0.7 L (1-3) Microbiology and Other Data: Microbiology 01/21/17 01:54 Nasal Screen MRSA (PCR)(HENRRY) - Final Nasal Mrsa Negative Assess/Plan/Problems-Billing Assessment: Mrs. Walton is an 72yo F with PMH of morbid obesity with BMI 50, CVA, CAD s/p CABG 2007, pulmonic stenosis, CLAUDE non compliant with CPAP, HLD, Afib on Eliquis , type 2 DM, stasis dermatitis, brought in to ED after being found on the floor , confused, for unknown period of time. - Patient Problems (1) Severe sepsis Code(s): A41.9 - SEPSIS, UNSPECIFIED ORGANISM; R65.20 - SEVERE SEPSIS WITHOUT SEPTIC SHOCK Comment: - Patient met sepsis criteria on admission with a qSOFA score of 2 (increased RR , AMS) and with SIRS/sepsis criteria of leukocytosis, tachycardia, complicated by ADELAIDA, sepsis induced encephalopathy, and delirium. - Siginificant leukocytosis with left shift and bandemia. - Source seems to be E. coli UTI - UA showed negative nitrates and LE, trace WBCs, but culture grew E. coli. - There was some concern for endocarditis, but blood cultures are negative. Patient/family declined SJ. - Continue cefuroxime for 14 day course. (2) E. coli UTI Code(s): N39.0 - URINARY TRACT INFECTION, SITE NOT SPECIFIED; B96.20 - UNSP ESCHERICHIA COLI THE CAUSE OF DISEASES CLASSD ELSWHR Comment: - Present on admission, not Flowers catheter related. - Continue cefuroxime. (3) Fall Comment: - Femur XR showed distal femur fracture. Ortho offers possibility of ORIF once medically stable. - Question if patient should transfer to [place] for AVR prior to ORIF or attempt surgery here. - Appreciate follow-up cardiology consult - Unclear if cause of fall is mechanical or syncopal. - Her RLE is externally rotated and shorter, she has a bruise on the posterior aspect of her right hip, suggestive of fracture, but CT pelvis was negative. D/ w Ortho (Dr. Herrera) - recommended MRI pelvis which was negative for fracture, showed only contusion involving right gluteal and adductor muscles. (4) Delirium Code(s): R41.0 - DISORIENTATION, UNSPECIFIED Comment: - Associated with severe sepsis. - Supportive care. (5) Rhabdomyolysis Code(s): M62.82 - RHABDOMYOLYSIS Comment: - Secondary to down time on the floor. - Trending down. (6) Troponin level elevated Code(s): R74.8 - ABNORMAL LEVELS OF OTHER SERUM ENZYMES Comment: - Could be secondary to rhabdo, demand ischemia in the setting of severe sepsis , or NSTEMI. - Continue Aspirin. (7) ADELAIDA (acute kidney injury) Code(s): N17.9 - ACUTE KIDNEY FAILURE, UNSPECIFIED Comment: - Suspect pre-renal in the setting of dehydration/sepsis. - Resolved. (8) Atrial fibrillation Code(s): I48.91 - UNSPECIFIED ATRIAL FIBRILLATION Comment: - Currently in SR with HR in the 80s - 90s. - Eliquis on hold for possible procedures. (9) Diabetes Code(s): E11.9 - TYPE 2 DIABETES MELLITUS WITHOUT COMPLICATIONS Comment: - PO meds on hold - continue Lispro SS. (10) DVT prophylaxis Code(s): [id number] - Comment: - SQ heparin. (11) DNR (do not resuscitate) Status and Disposition: Inpatient. Continued LOS for antibiotics and surgical correction of femur fracture. Family in discussion to decide if patient should transfer to [place] for valve replacement and subsequent femur fracture or if they wish to stay here for ORIF.
--- NOTE | 2017-01-27 10:53 | PN ---
Progress Note - Progress Note SOAP: Subjective: DOS: 01/27/17 CC: encephalopathy HPI: 72 year old woman found down, admitted with sepsis, right femur fracture, E.coli cystitis. Initially confusion and somnolence continue to improve. Has knee pain on the right. No fever, rash, or diarrhea. Objective: [] Vital Signs Temp 36.4 C 01/27/17 07:23 Pulse 83 01/27/17 07:23 Resp 20 01/27/17 10:01 BP 125/53 01/27/17 07:23 Pulse Ox 100 01/27/17 07:23 Intake & Output 01/26/17 01/27/17 01/27/17 18:59 06:59 18:59 Intake Total 651 747 Output Total 150 1250 Balance 501 -503 Intake: IV Fluids 267 747 NS (0.9%) 267 747 IVPB 84 NS (0.9%) 84 Oral 300 0 Output: Urine 0 Flowers 150 1250 Other: # Bowel Movements 0 Gen:awake, no distress Neuro: Ox2, moves all extremities HEENT:PERRL, MMM Neck: supple Heart:RRR 2/6 systolic murmur Lungs:CTA BL Abd:+BS NTND soft Skin: No rash MSK: no spine tenderness Laboratory Results - last 24 hr 01/26/17 01/26/17 01/26/17 12:34 16:58 23:07 WBC RBC Hgb Hct MCV MCH MCHC RDW Plt Count MPV Neut % (Auto) Lymph % (Auto) Nelson % (Auto) Eos % (Auto) Baso % (Auto) Absolute Neuts (auto) Absolute Lymphs (auto) Absolute Monos (auto) Absolute Eos (auto) Absolute Basos (auto) Absolute Nucleated RBC Nucleated RBC % Sodium Potassium Chloride Carbon Dioxide Anion Gap BUN Creatinine Est GFR ( Amer) Est GFR (Non-Af Amer) BUN/Creatinine Ratio Glucose POC Glucose (mg/dL) 121 H 114 H 125 H Calcium Magnesium C-Reactive Protein Vitamin B12 01/27/17 01/27/17 01/27/17 05:51 05:51 07:39 WBC 9.6 RBC 3.33 L Hgb 10.4 L Hct 33 L MCV 98 H MCH 31 MCHC 32 RDW 16 H Plt Count 147 L MPV 9 Neut % (Auto) 84.5 H Lymph % (Auto) 5.0 L Nelson % (Auto) 7.5 Eos % (Auto) 2.7 Baso % (Auto) 0.3 Absolute Neuts (auto) 8.1 H Absolute Lymphs (auto) 0.5 L Absolute Monos (auto) 0.7 Absolute Eos (auto) 0.3 Absolute Basos (auto) 0 Absolute Nucleated RBC 0.01 Nucleated RBC % 0.1 Sodium 132 L Potassium 4.1 Chloride 101 Carbon Dioxide 30 Anion Gap 1 L BUN 15 Creatinine 0.63 Est GFR ( Amer) 119.8 Est GFR (Non-Af Amer) 93.2 BUN/Creatinine Ratio 23.8 H Glucose 88 POC Glucose (mg/dL) 103 Calcium 8.2 L Magnesium 1.8 L C-Reactive Protein 48.59 H Vitamin B12 110 L Assessment: 1. encephalopathy, present on admission, improving 2. E.coli cystitis; no stone disease on CT 3. rhabdomyolysis 4. right distal femur fracture 5. morbid obesity 6. 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 7. T2DM 8. severe aortic stenosis Plan: 1. continue oral cephalosporin to complete 14 days total of antibiotics
[2017-01-27] MEDS: Nystatin TOP POWDER* 15 GM BTL TOPICAL SCH ×3 (11:24→21:47)
--- NOTE | 2017-01-27 11:37 | RAD ---
HISTORY: Right knee, postreduction COMPARISONS: January 22, 2017 VIEWS: 2, Frontal and lateral views of the right knee FINDINGS: BONE DENSITY: There is diffuse osteopenia. BONES: Again noted is a fracture of the distal femoral diaphysis and metaphysis. There has been interval reduction in the angulation JOINTS: There is osteoarthritis of the right knee ALIGNMENT: There is no dislocation. SOFT TISSUES: Unremarkable. OTHER FINDINGS: None. IMPRESSION: INTERVAL REDUCTION OF AN ANGULATED FRACTURE OF THE DISTAL FEMUR
--- NOTE | 2017-01-27 12:27 | PN ---
Progress Note - Progress Note SOAP: Subjective: Patient describes pain all over. Objective: Patient is more awake and alert today. She is able to answer basic question such as, "Where is the pain?", and is able to ask basic questions, although she had to ask me 2-3 times who I am. RLE: - Externally rotated - Knee flexed to ~ 40 degrees - TTP R distal femur and knee - NVID - Obesity and venous stasis skin changes lower leg - No open skin Selected Entries 01/27/17 11:33 Pulse Rate 85 Respiratory 16 Rate Blood Pressure 126/65 (mmHg) O2 Sat by Pulse 97 Oximetry Laboratory Tests 01/27/17 01/27/17 05:51 05:51 WBC 9.6 C-Reactive Protein 48.59 H Assessment: 1. R displaced distal femur fracture 2. Admission with sepsis from E. Coli UTI, MS changes, rhabdo 3. Severe aortic stenosis, pulmonic stenosis and aneurysm, morbid obesity, baseline homebound c walker Plan: 1. Performed procedure at bedside. Written consent from patient's sister, her HCP. Verbal consent from patient. Verbal consent, sterile technique, tolerated well. Injected 20cc Lidocaine into the hematoma (hematoma block) and the right knee joint with a spinal-length high gauge (25 or 27) needle. Waited 5 minutes. Performed closed reduction/manipulation of the distal femur right performed. [place] a crack and reduction. Patient's knee was in full extension. 2. Post procedure x-rays show significantly greatly improved reduction at fracture site, albeit with some residual angulation. Knee joint is fully extended. 3. Unless patient's risk of ORIF surgery is lowered and/or she has a strong preference for surgery, I favor definitive management of the fracture with immobilization in extension. 4. Knee immobilizer on AT ALL TIMES, 12/04. The only exception is for hygiene and skin ulcer checks. The knee must remain in extension AT ALL TIMES, as I do not want to lose the reduction of the fracture that we have obtained. Skin checks should be done daily or more often. 5. Patient will be in knee immobilizer for 2+ months. Non-weight bearing (or toe-touch, if she can manage that eventually) for 2 months. 6. Medical management of sepsis and cardiovascular optimization.
[2017-01-27] MEDS: Cyanocobalamin INJ * 1,000 MCG/ML VIAL 1 ML VIAL IM SCH (17:40)
[2017-01-27] MEDS ORDERED: oxyCODONE TAB* 5 MG TAB PO PRN ×2 (18:17)
[2017-01-27] MEDS ORDERED: Cyclobenzaprine TAB* 10 MG PO PRN (18:17)
[2017-01-27] MEDS ORDERED: traMADol TAB* 50 MG PO PRN (18:17)
[2017-01-27] MEDS: Acetaminophen TAB* 325 MG PO SCH (21:43)
[2017-01-28] MEDS ORDERED: Acetaminophen TAB* 325 MG PO PRN (03:26)
[2017-01-28] MEDS: Heparin VIAL(*) 5000 UNITS/ML VIAL (FIVE THOUSAND) SUBCUT SCH ×3 (05:06→21:07)
[2017-01-28] MEDS: Insulin LISPRO* 1 UNITS UNIT SUBCUT SCH ×3 (07:53→17:03)
[2017-01-28] MEDS: Acetaminophen TAB* 325 MG PO SCH (08:03)
--- NOTE | 2017-01-28 09:15 | PN ---
Subjective Date of Service: 01/28/17 Family History: Unchanged from Admission Social History: Unchanged from Admission Past Medical History: Unchanged from Admission Objective Active Medications: Acetaminophen (Tylenol Tab*) 975 mg PO Q8H PRN PRN Reason: PAIN Al Hydrox/Mg Hydrox/Simethicone (Maalox Plus*) 30 ml PO Q6H PRN PRN Reason: INDIGESTION Aspirin (Aspirin Ec Low Dose*) 81 mg PO DAILY [facility] Last Admin: 01/27/17 09:02 Dose: 81 mg Cefuroxime Axetil (Ceftin Tab(*)) 250 mg PO BID [facility] Last Admin: 01/27/17 21:44 Dose: 250 mg Cyanocobalamin (Vitamin B12 Inj *) 1,000 mcg IM DAILY [facility] Stop: 02/02/17 09:01 Last Admin: 01/27/17 17:40 Dose: 1,000 mcg Cyclobenzaprine HCl (Flexeril Tab*) 5 mg PO TID PRN PRN Reason: SPASMS - MUSCLE Dextrose (D50w Syringe 50 Ml*) 12.5 gm IV PUSH .FOR FS < 60 - SS PRN PRN Reason: FS < 60 Docusate Sodium (Colace Cap*) 100 mg PO BID PRN PRN Reason: CONSTIPATION Dronedarone (Multaq Tab*) 400 mg PO BID [facility] Last Admin: 01/27/17 21:44 Dose: 400 mg Heparin Sodium (Porcine) (Heparin Vial(*)) 5,000 units SUBCUT Q8HR [facility] Last Admin: 01/28/17 05:06 Dose: 5,000 units Sodium Chloride (Ns 0.9% 1000 Ml*) 1,000 mls @ 50 mls/hr IV PER RATE [facility] Last Admin: 01/27/17 04:04 Dose: 50 mls/hr Insulin Human Lispro (Humalog*) 0 units SUBCUT AC [facility] PRN Reason: Protocol Last Admin: 01/28/17 07:53 Dose: Not Given Morphine Sulfate (Morphine Inj (Syringe)*) 2 mg IV Q4H PRN PRN Reason: PAIN Last Admin: 01/27/17 17:44 Dose: 2 mg Nystatin (Nystatin Top Powder*) 1 applic TOPICAL TID [facility] Last Admin: 01/27/17 21:47 Dose: 1 applic Ondansetron HCl (Zofran Inj*) 4 mg IV Q4H PRN PRN Reason: NAUSEA/VOMITING Oxycodone HCl (Roxycodone Tab*) 5 mg PO Q4H PRN PRN Reason: PAIN - MILD TO MODERATE Oxycodone HCl (Roxycodone Tab*) 10 mg PO Q4H PRN PRN Reason: PAIN - MODERATE TO SEVERE Senna (Senokot Tab*) 1 tab PO BID PRN PRN Reason: CONSTIPATION Tramadol HCl (Ultram*) 50 mg PO Q6H PRN PRN Reason: PAIN Vital Signs 01/27/17 01/27/17 01/27/17 10:01 11:33 12:22 Temperature Pulse Rate 85 Respiratory 20 16 20 Rate Blood Pressure 126/65 (mmHg) O2 Sat by Pulse 97 Oximetry 01/27/17 01/27/17 01/27/17 13:22 15:52 17:44 Temperature 98.2 F Pulse Rate 79 Respiratory 16 18 20 Rate Blood Pressure 132/91 (mmHg) O2 Sat by Pulse 99 Oximetry 01/27/17 01/27/17 01/27/17 18:44 19:33 20:00 Temperature 97.3 F Pulse Rate 81 Respiratory 20 14 16 Rate Blood Pressure 141/72 (mmHg) O2 Sat by Pulse 97 Oximetry 01/27/17 01/28/17 01/28/17 23:56 03:30 07:47 Temperature 98.1 F 98.4 F 97.7 F Pulse Rate 79 85 72 Respiratory 20 20 20 Rate Blood Pressure 128/68 139/75 132/66 (mmHg) O2 Sat by Pulse 97 99 100 Oximetry Oxygen Devices in Use Now: Nasal Cannula Result Diagrams: 01/27/17 05:51 01/27/17 05:51 Additional Lab and Data: Lab Results 01/20/17 01/20/17 01/20/17 Range/Units 21:30 21:30 21:30 WBC 29.9 H (3.5-10.8) 10^3/ul RBC 4.81 (4.0-5.4) 10^6/ul Hgb 14.7 (12.0-16.0) g/dl Hct 47 (35-47) % MCV 97 (80-97) fL MCH 31 (27-31) pg MCHC 31 (31-36) g/dl RDW 17 H (10.5-15) % Plt Count 263 (150-450) 10^3/ul MPV 10 (7.4-10.4) um3 Immature Gran % (Auto) 5 (0-9) % Absolute Neuts (auto) 28.4 H (1.5-7.7) 10^3/ul Absolute Lymphs (auto) 0.9 L (1.0-4.8) 10^3/ul Absolute Monos (auto) 0.6 (0-0.8) 10^3/ul Absolute Eos (auto) 0 (0-0.6) 10^3/ul Absolute Basos (auto) 0 (0-0.2) 10^3/ul Absolute Nucleated RBC 0 10^3/ul Neutrophils % 90 H (38-83) % Band Neutrophils % 5 (0-8) % Lymphocytes % 3 L (25-47) % Monocytes % 2 (0-13) % Toxic Granulation 2+ Normal RBC Morphology Not Reportable Hem Pathologist Commnt Sodium 134 (133-145) mmol/L Potassium TNP Chloride 97 L (101-111) mmol/L Carbon Dioxide 25 (22-32) mmol/L Anion Gap TNP BUN 40 H (6-24) mg/dL Creatinine 1.25 H (0.51-0.95) mg/dL Est GFR ( Amer) 54.3 (>60) Est GFR (Non-Af Amer) 42.2 (>60) BUN/Creatinine Ratio 32.0 H (8-20) Glucose 204 H (70-100) mg/dL Lactic Acid 2.4 H* (0.5-2.0) mmol/L Calcium 9.2 (8.6-10.3) mg/dL Total Bilirubin 1.30 H (0.2-1.0) mg/dL AST TNP ALT 27 (7-52) U/L Alkaline Phosphatase 72 (34-104) U/L Total Creatine Kinase 6977 H (10-223) U/L Troponin I 0.09 H* (<0.04) ng/mL Total Protein 8.5 (6.4-8.9) g/dL Albumin 3.5 (3.2-5.2) g/dL Globulin 5.0 H (2-4) g/dL Albumin/Globulin Ratio 0.7 L (1-3) Microbiology and Other Data: Microbiology 01/21/17 01:54 Nasal Screen MRSA (PCR)(HENRRY) - Final Nasal Mrsa Negative Assess/Plan/Problems-Billing Assessment: Mrs. Walton is an 72yo F with PMH of morbid obesity with BMI 50, CVA, CAD s/p CABG 2007, pulmonic stenosis, CLAUDE non compliant with CPAP, HLD, Afib on Eliquis , type 2 DM, stasis dermatitis, brought in to ED after being found on the floor , confused, for unknown period of time. - Patient Problems (1) Severe sepsis Code(s): A41.9 - SEPSIS, UNSPECIFIED ORGANISM; R65.20 - SEVERE SEPSIS WITHOUT SEPTIC SHOCK Comment: - Patient met sepsis criteria on admission with a qSOFA score of 2 (increased RR , AMS) and with SIRS/sepsis criteria of leukocytosis, tachycardia, complicated by ADELAIDA, sepsis induced encephalopathy, and delirium. - Siginificant leukocytosis with left shift and bandemia. - Source seems to be E. coli UTI - UA showed negative nitrates and LE, trace WBCs, but culture grew E. coli. - There was some concern for endocarditis, but blood cultures are negative. Patient/family declined SJ. - Continue cefuroxime for 14 day course. (2) E. coli UTI Code(s): N39.0 - URINARY TRACT INFECTION, SITE NOT SPECIFIED; B96.20 - UNSP ESCHERICHIA COLI THE CAUSE OF DISEASES CLASSD ELSWHR Comment: - Present on admission, not [place] catheter related. - Continue cefuroxime. (3) Fall Comment: - Femur XR showed distal femur fracture. Ortho offers possibility of ORIF once medically stable. - Question if patient should transfer to [place] for AVR prior to ORIF or attempt surgery here. - Appreciate follow-up cardiology consult - Unclear if cause of fall is mechanical or syncopal. - Her RLE is externally rotated and shorter, she has a bruise on the posterior aspect of her right hip, suggestive of fracture, but CT pelvis was negative. D/ w Ortho (Dr. Herrera) - recommended MRI pelvis which was negative for fracture, showed only contusion involving right gluteal and adductor muscles. (4) Delirium Code(s): R41.0 - DISORIENTATION, UNSPECIFIED Comment: - Associated with severe sepsis. - Supportive care. (5) Rhabdomyolysis Code(s): M62.82 - RHABDOMYOLYSIS Comment: - Secondary to down time on the floor. - Trending down. (6) Troponin level elevated Code(s): R74.8 - ABNORMAL LEVELS OF OTHER SERUM ENZYMES Comment: - Could be secondary to rhabdo, demand ischemia in the setting of severe sepsis , or NSTEMI. - Continue Aspirin. (7) ADELAIDA (acute kidney injury) Code(s): N17.9 - ACUTE KIDNEY FAILURE, UNSPECIFIED Comment: - Suspect pre-renal in the setting of dehydration/sepsis. - Resolved. (8) Atrial fibrillation Code(s): I48.91 - UNSPECIFIED ATRIAL FIBRILLATION Comment: - Currently in SR with HR in the 80s - 90s. - Eliquis on hold for possible procedures. (9) Diabetes Code(s): E11.9 - TYPE 2 DIABETES MELLITUS WITHOUT COMPLICATIONS Comment: - PO meds on hold - continue Lispro SS. (10) DVT prophylaxis Code(s): [id number] - Comment: - SQ heparin. (11) DNR (do not resuscitate) Status and Disposition: Inpatient. Continued LOS for antibiotics and surgical correction of femur fracture. Family in discussion to decide if patient should transfer to [place] for valve replacement and subsequent femur fracture or if they wish to stay here for ORIF.
[2017-01-28] MEDS: Cyanocobalamin INJ * 1,000 MCG/ML VIAL 1 ML VIAL IM SCH (09:18)
[2017-01-28] MEDS: NS 0.9% 1000 ML* 1,000 ML IV SCH (09:21)
[2017-01-28] MEDS: ceFUROXime TAB(*) 250 MG PO SCH ×2 (09:23→20:56)
[2017-01-28] MEDS: Aspirin EC Low Dose* 81 MG TAB.EC PO SCH (09:24)
[2017-01-28] MEDS: Dronedarone TAB* 400 MG PO SCH ×2 (09:25→20:56)
[2017-01-28] MEDS: Nystatin TOP POWDER* 15 GM BTL TOPICAL SCH ×3 (09:25→22:24)
[2017-01-28 09:29] LABS: Hematocrit 34 % (35-47); Hemoglobin 10.8 g/dl (12.0-16.0); Mean Corpuscular HGB Conc 32 g/dl (31-36); Mean Corpuscular Hemoglobin 31 pg (27-31); Mean Corpuscular Volume 98 fL (80-97); Mean Platelet Volume 9 um3 (7.4-10.4); Red Blood Count 3.47 10^6/ul (4.0-5.4); Red Cell Distribution Width 16 % (10.5-15); White Blood Count 8.9 10^3/ul (3.5-10.8)
[2017-01-28 09:40] LABS: Calcium 8.1 mg/dL (8.6-10.3); EGFR African American 124.3 (>60); EGFR Non-African American 96.7 (>60); Potassium 4.2 mmol/L (3.5-5.0)
[2017-01-28 09:56] LABS: PCO2 Arterial 63 mmHg (35-45)
--- NOTE | 2017-01-28 10:14 | PN ---
Subjective Date of Service: 01/28/17 Interval History: Patient seen and examined at bedside. She reports leg pain. Patient reports hamstring pain when made to sit at 90 degrees, due to her right knee immobilizer. Patient unable to recall any events overnight but appears to recognize me. Confused, initially says she's at [facility] but then rescinds. Does not remember being in the hospital. Denies CP, SOB, n/v. I spoke with patient's brother, Eduardo. Family is happy about non-surgical intervention and willing to try closed reduction at this time. As patient's is not critical, valve replacement is not crucial at this time. We discussed the possibility of pursuing this as an outpatient, which they are in agreement with. Family History: Unchanged from Admission Social History: Unchanged from Admission Past Medical History: Unchanged from Admission Objective Active Medications: Acetaminophen (Tylenol Tab*) 975 mg PO Q8H PRN PRN Reason: PAIN Al Hydrox/Mg Hydrox/Simethicone (Maalox Plus*) 30 ml PO Q6H PRN PRN Reason: INDIGESTION Aspirin (Aspirin Ec Low Dose*) 81 mg PO DAILY [facility] Last Admin: 01/28/17 09:24 Dose: 81 mg Cefuroxime Axetil (Ceftin Tab(*)) 250 mg PO BID [facility] Last Admin: 01/28/17 09:23 Dose: 250 mg Cyanocobalamin (Vitamin B12 Inj *) 1,000 mcg IM DAILY [facility] Stop: 02/02/17 09:01 Last Admin: 01/28/17 09:18 Dose: 1,000 mcg Cyclobenzaprine HCl (Flexeril Tab*) 5 mg PO TID PRN PRN Reason: SPASMS - MUSCLE Dextrose (D50w Syringe 50 Ml*) 12.5 gm IV PUSH .FOR FS < 60 - SS PRN PRN Reason: FS < 60 Docusate Sodium (Colace Cap*) 100 mg PO BID PRN PRN Reason: CONSTIPATION Dronedarone (Multaq Tab*) 400 mg PO BID [facility] Last Admin: 01/28/17 09:25 Dose: 400 mg Heparin Sodium (Porcine) (Heparin Vial(*)) 5,000 units SUBCUT Q8HR [facility] Last Admin: 01/28/17 05:06 Dose: 5,000 units Sodium Chloride (Ns 0.9% 1000 Ml*) 1,000 mls @ 50 mls/hr IV PER RATE [facility] Last Admin: 01/28/17 09:21 Dose: 50 mls/hr Insulin Human Lispro (Humalog*) 0 units SUBCUT [facility] PRN Reason: Protocol Last Admin: 01/28/17 07:53 Dose: Not Given Morphine Sulfate (Morphine Inj (Syringe)*) 2 mg IV Q4H PRN PRN Reason: PAIN Last Admin: 01/27/17 17:44 Dose: 2 mg Nystatin (Nystatin Top Powder*) 1 applic TOPICAL TID [facility] Last Admin: 01/28/17 09:25 Dose: 1 applic Ondansetron HCl (Zofran Inj*) 4 mg IV Q4H PRN PRN Reason: NAUSEA/VOMITING Oxycodone HCl (Roxycodone Tab*) 5 mg PO Q4H PRN PRN Reason: PAIN - MILD TO MODERATE Oxycodone HCl (Roxycodone Tab*) 10 mg PO Q4H PRN PRN Reason: PAIN - MODERATE TO SEVERE Senna (Senokot Tab*) 1 tab PO BID PRN PRN Reason: CONSTIPATION Tramadol HCl (Ultram*) 50 mg PO Q6H PRN PRN Reason: PAIN Vital Signs 01/27/17 01/27/17 01/27/17 11:33 12:22 13:22 Temperature Pulse Rate 85 Respiratory 16 20 16 Rate Blood Pressure 126/65 (mmHg) O2 Sat by Pulse 97 Oximetry 01/27/17 01/27/17 01/27/17 15:52 17:44 18:44 Temperature 98.2 F Pulse Rate 79 Respiratory 18 20 20 Rate Blood Pressure 132/91 (mmHg) O2 Sat by Pulse 99 Oximetry 01/27/17 01/27/17 01/27/17 19:33 20:00 23:56 Temperature 97.3 F 98.1 F Pulse Rate 81 79 Respiratory 14 16 20 Rate Blood Pressure 141/72 128/68 (mmHg) O2 Sat by Pulse 97 97 Oximetry 01/28/17 01/28/17 03:30 07:47 Temperature 98.4 F 97.7 F Pulse Rate 85 72 Respiratory 20 20 Rate Blood Pressure 139/75 132/66 (mmHg) O2 Sat by Pulse 99 100 Oximetry Oxygen Devices in Use Now: Nasal Cannula Appearance: Elderly female, OOB to chair, NAD, pleasantly confused Eyes: PERRLA Ears/Nose/Mouth/Throat: Mucous Membranes Moist Neck: NL Appearance and Movements; NL JVP Respiratory: Symmetrical Chest Expansion and Respiratory Effort, Clear to Auscultation - diminished Cardiovascular: RRR - S1, S2, systolic murmur Extremities: - - RLE with immobilizer, 1-2+ distal pulses, sensation and movement intact Skin: - - venous stasis dermatitis to BLE Neurological: - - Alert, oriented to self only Lines/Tubes/Other Access: Clean, Dry and Intact Peripheral IV Nutrition: Taking PO's Result Diagrams: 01/28/17 09:14 01/28/17 09:14 Additional Lab and Data: Lab Results 01/20/17 01/20/17 01/20/17 Range/Units 21:30 21:30 21:30 WBC 29.9 H (3.5-10.8) 10^3/ul RBC 4.81 (4.0-5.4) 10^6/ul Hgb 14.7 (12.0-16.0) g/dl Hct 47 (35-47) % MCV 97 (80-97) fL MCH 31 (27-31) pg MCHC 31 (31-36) g/dl RDW 17 H (10.5-15) % Plt Count 263 (150-450) 10^3/ul MPV 10 (7.4-10.4) um3 Immature Gran % (Auto) 5 (0-9) % Absolute Neuts (auto) 28.4 H (1.5-7.7) 10^3/ul Absolute Lymphs (auto) 0.9 L (1.0-4.8) 10^3/ul Absolute Monos (auto) 0.6 (0-0.8) 10^3/ul Absolute Eos (auto) 0 (0-0.6) 10^3/ul Absolute Basos (auto) 0 (0-0.2) 10^3/ul Absolute Nucleated RBC 0 10^3/ul Neutrophils % 90 H (38-83) % Band Neutrophils % 5 (0-8) % Lymphocytes % 3 L (25-47) % Monocytes % 2 (0-13) % Toxic Granulation 2+ Normal RBC Morphology Not Reportable Hem Pathologist Commnt Sodium 134 (133-145) mmol/L Potassium TNP Chloride 97 L (101-111) mmol/L Carbon Dioxide 25 (22-32) mmol/L Anion Gap TNP BUN 40 H (6-24) mg/dL Creatinine 1.25 H (0.51-0.95) mg/dL Est GFR ( Amer) 54.3 (>60) Est GFR (Non-Af Amer) 42.2 (>60) BUN/Creatinine Ratio 32.0 H (8-20) Glucose 204 H (70-100) mg/dL Lactic Acid 2.4 H* (0.5-2.0) mmol/L Calcium 9.2 (8.6-10.3) mg/dL Total Bilirubin 1.30 H (0.2-1.0) mg/dL AST TNP ALT 27 (7-52) U/L Alkaline Phosphatase 72 (34-104) U/L Total Creatine Kinase 6977 H (10-223) U/L Troponin I 0.09 H* (<0.04) ng/mL Total Protein 8.5 (6.4-8.9) g/dL Albumin 3.5 (3.2-5.2) g/dL Globulin 5.0 H (2-4) g/dL Albumin/Globulin Ratio 0.7 L (1-3) Microbiology and Other Data: Microbiology 01/21/17 01:54 Nasal Screen MRSA (PCR)(HENRRY) - Final Nasal Mrsa Negative Assess/Plan/Problems-Billing Assessment: Mrs. Walton is an 72yo F with PMH of morbid obesity with BMI 50, CVA, CAD s/p CABG 2007, pulmonic stenosis, CLAUDE non compliant with CPAP, HLD, Afib on Eliquis , type 2 DM, stasis dermatitis, brought in to ED after being found on the floor , confused, for unknown period of time. - Patient Problems (1) Altered mental status Code(s): R41.82 - ALTERED MENTAL STATUS, UNSPECIFIED Comment: Patient reportedly less responsive last night. Mental status waxes and wanes. Patient being treated for UTI Labs unremarkable, ammonia level normal. ABG normal - CO2 mildly elevated, which may indicate a need for nighttime BiPAP/ CPAP. Check overnight pulse ox. Patient's appears to have some baseline confusion/forgetfulness. Will continue to discuss with family. (2) Severe sepsis Code(s): A41.9 - SEPSIS, UNSPECIFIED ORGANISM; R65.20 - SEVERE SEPSIS WITHOUT SEPTIC SHOCK Comment: - Patient met sepsis criteria on admission with a qSOFA score of 2 (increased RR , AMS) and with SIRS/sepsis criteria of leukocytosis, tachycardia, complicated by ADELAIDA, sepsis induced encephalopathy, and delirium. - Siginificant leukocytosis with left shift and bandemia. - Source seems to be E. coli UTI - UA showed negative nitrates and LE, trace WBCs, but culture grew E. coli. - There was some concern for endocarditis, but blood cultures are negative. Patient/family declined SJ. - Continue cefuroxime for 14 day course. (3) E. coli UTI Code(s): N39.0 - URINARY TRACT INFECTION, SITE NOT SPECIFIED; B96.20 - UNSP ESCHERICHIA COLI THE CAUSE OF DISEASES CLASSD ELSWHR Comment: - Present on admission, not Flowers catheter related. - Continue cefuroxime. (4) Fall Comment: - Femur XR showed distal femur fracture. Ortho performed closed reduction of femur at bedside yesterday. Patient w/ knee immobilizer, NWB. - Unclear if cause of fall is mechanical or syncopal. - Her RLE is externally rotated and shorter, she has a bruise on the posterior aspect of her right hip, suggestive of fracture, but CT pelvis was negative. D/ w Ortho (Dr. Herrera) - recommended MRI pelvis which was negative for fracture, showed only contusion involving right gluteal and adductor muscles. (5) Delirium Code(s): R41.0 - DISORIENTATION, UNSPECIFIED Comment: Associated with severe sepsis. Suspect delirium superimposed on baseline confusion/forgetfulness Supportive care. (6) Rhabdomyolysis Code(s): M62.82 - RHABDOMYOLYSIS Comment: - Secondary to down time on the floor. - Trending down. (7) Troponin level elevated Code(s): R74.8 - ABNORMAL LEVELS OF OTHER SERUM ENZYMES Comment: - Could be secondary to rhabdo, demand ischemia in the setting of severe sepsis , or NSTEMI. - Continue Aspirin. (8) ADELAIDA (acute kidney injury) Code(s): N17.9 - ACUTE KIDNEY FAILURE, UNSPECIFIED Comment: - Suspect pre-renal in the setting of dehydration/sepsis. - Resolved. (9) Atrial fibrillation Code(s): I48.91 - UNSPECIFIED ATRIAL FIBRILLATION Comment: - Currently in SR with HR in the 80s - 90s. - Eliquis on hold for possible procedures. (10) Diabetes Code(s): E11.9 - TYPE 2 DIABETES MELLITUS WITHOUT COMPLICATIONS Comment: - PO meds on hold - continue Lispro SS. (11) DVT prophylaxis Code(s): [id number] - Comment: - SQ heparin. (12) DNR (do not resuscitate) Status and Disposition: Inpatient. S/p closed reduction of RLE. Likely needs long-term rehab/SNF placement.
--- NOTE | 2017-01-28 11:51 | PN ---
Subjective Date of Service: 01/28/17 Interval History: Patient confused oriented x self only no current complaints appears comfortable tele: sr, brief atrial tachyarrhtyhmias Medications Active Medications: Acetaminophen (Tylenol Tab*) 975 mg PO Q8H PRN PRN Reason: PAIN Al Hydrox/Mg Hydrox/Simethicone (Maalox Plus*) 30 ml PO Q6H PRN PRN Reason: INDIGESTION Aspirin (Aspirin Ec Low Dose*) 81 mg PO DAILY [facility] Last Admin: 01/28/17 09:24 Dose: 81 mg Cefuroxime Axetil (Ceftin Tab(*)) 250 mg PO BID [facility] Last Admin: 01/28/17 09:23 Dose: 250 mg Cyanocobalamin (Vitamin B12 Inj *) 1,000 mcg IM DAILY [facility] Stop: 02/02/17 09:01 Last Admin: 01/28/17 09:18 Dose: 1,000 mcg Cyclobenzaprine HCl (Flexeril Tab*) 5 mg PO TID PRN PRN Reason: SPASMS - MUSCLE Dextrose (D50w Syringe 50 Ml*) 12.5 gm IV PUSH .FOR FS < 60 - SS PRN PRN Reason: FS < 60 Docusate Sodium (Colace Cap*) 100 mg PO BID PRN PRN Reason: CONSTIPATION Dronedarone (Multaq Tab*) 400 mg PO BID [facility] Last Admin: 01/28/17 09:25 Dose: 400 mg Heparin Sodium (Porcine) (Heparin Vial(*)) 5,000 units SUBCUT Q8HR [facility] Last Admin: 01/28/17 05:06 Dose: 5,000 units Sodium Chloride (Ns 0.9% 1000 Ml*) 1,000 mls @ 50 mls/hr IV PER RATE [facility] Last Admin: 01/28/17 09:21 Dose: 50 mls/hr Insulin Human Lispro (Humalog*) 0 units SUBCUT AC [facility] PRN Reason: Protocol Last Admin: 01/28/17 07:53 Dose: Not Given Morphine Sulfate (Morphine Inj (Syringe)*) 2 mg IV Q4H PRN PRN Reason: PAIN Last Admin: 01/27/17 17:44 Dose: 2 mg Nystatin (Nystatin Top Powder*) 1 applic TOPICAL TID [facility] Last Admin: 01/28/17 09:25 Dose: 1 applic Ondansetron HCl (Zofran Inj*) 4 mg IV Q4H PRN PRN Reason: NAUSEA/VOMITING Oxycodone HCl (Roxycodone Tab*) 5 mg PO Q4H PRN PRN Reason: PAIN - MILD TO MODERATE Oxycodone HCl (Roxycodone Tab*) 10 mg PO Q4H PRN PRN Reason: PAIN - MODERATE TO SEVERE Senna (Senokot Tab*) 1 tab PO BID PRN PRN Reason: CONSTIPATION Tramadol HCl (Ultram*) 50 mg PO Q6H PRN PRN Reason: PAIN Objective Vital Signs: Temp Pulse Resp BP Pulse Ox 97.7 F 72 20 132/66 100 01/28/17 07:47 01/28/17 07:47 01/28/17 07:47 01/28/17 07:47 01/28/17 07:47 Oxygen Devices in Use Now: Nasal Cannula Appearance: nad, Neck: Trachea Midline Respiratory: Symmetrical Chest Expansion and Respiratory Effort, - - distant breath sounds Cardiovascular: - - rrr, systolic murmur with +a2 Extremities: No Clubbing, Cyanosis Laboratory Results: 01/28/17 09:14 01/28/17 09:14 INR (Anticoag Therapy) 1.31 (0.89-1.11) H 01/21/17 02:41 APTT 25.9 seconds (26.0-36.3) L 01/21/17 02:41 Total Bilirubin 1.30 mg/dL (0.2-1.0) H 01/23/17 09:07 AST 50 U/L (13-39) H 01/23/17 09:07 ALT 25 U/L (7-52) 01/23/17 09:07 Alkaline Phosphatase 48 U/L (34-104) 01/23/17 09:07 Total Protein 6.1 g/dL (6.4-8.9) L 01/23/17 09:07 Albumin 2.7 g/dL (3.2-5.2) L 01/23/17 09:07 Globulin 3.4 g/dL (2-4) 01/23/17 09:07 Albumin/Globulin Ratio 0.8 (1-3) L 01/23/17 09:07 01/21/17 01/21/17 01/21/17 01:00 05:43 09:59 Troponin I 0.13 H* 0.17 H* 0.21 H* 01/21/17 12:30 Troponin I 0.15 H* Assessment/Plan Noni Walton is a 72 year old woman with cad c/p cabg 2007, CVA, obesity, sleep apnea, HTN, dyslipidemia, symptomatic PAFib admitted with ? fall vs. syncope distal femur fracture, encephalopathy which continues (not entirely certain of baseline cognitive status), ecoli UTI/sepsis, severe with normal LVEF now s/p bedside reduction of femur with external fixation plan for non- operative treatment for now. - Continue current cardiac medications. - Continue DVT prophylaxis, chads2-vasc score very high at 7 and with prior CVA. For longer term management, once stable from an orthopaedic standpoint would consider d/c aspirin and d/c sq heparin and restart eliquis 5 mg PO BID. - D/w Autumn Richardson NP, currently working on finding facility for rehabilitation Thank you for allowing me to participate in the cardiovascular care of this patient. Please do not hesitate to contact me with questions or concerns.
--- NOTE | 2017-01-28 14:29 | RAD ---
INDICATION: Altered mental status COMPARISON: CT brain January 20, 2017 TECHNIQUE: Noncontrast axial source images were acquired from the skull base to the vertex. FINDINGS: Ventricles/sulci: There is mild age-related cortical atrophy with compensatory dilatation of the CSF spaces. Brain parenchyma: There is periventricular and subcortical white matter change compatible with chronic ischemia. There is an old infarct right caudate nucleus. Intracranial hemorrhage:None. Extra-axial spaces: There are no abnormal extra axial fluid collections or evidence of extra-axial mass. Calvarium: There is no calvarial fracture or other calvarial abnormality. Scalp: There is no evidence of scalp or extracalvarial soft tissue abnormality. Paranasal sinuses/mastoid: The paranasal sinuses and mastoid air cells are clear. Other: None. IMPRESSION: MILD CORTICAL ATROPHY WITH CHRONIC ISCHEMIC CHANGES. NO ACUTE FINDINGS.
[2017-01-29] MEDS: Heparin VIAL(*) 5000 UNITS/ML VIAL (FIVE THOUSAND) SUBCUT SCH ×2 (06:08→12:57)
[2017-01-29] MEDS: Insulin LISPRO* 1 UNITS UNIT SUBCUT SCH ×3 (07:28→17:57)
--- NOTE | 2017-01-29 09:07 | PN ---
Subjective Date of Service: 01/29/17 Interval History: Patient seen and examined at bedside. Is more alert this morning and able to tell me where she is. Patient states her RLE pain is "better than the past few days." She is able to remember me and is more aware of her surroundings. Family History: Unchanged from Admission Social History: Unchanged from Admission Past Medical History: Unchanged from Admission Objective Active Medications: Acetaminophen (Tylenol Tab*) 975 mg PO Q8H PRN PRN Reason: PAIN Al Hydrox/Mg Hydrox/Simethicone (Maalox Plus*) 30 ml PO Q6H PRN PRN Reason: INDIGESTION Aspirin (Aspirin Ec Low Dose*) 81 mg PO DAILY [facility] Last Admin: 01/28/17 09:24 Dose: 81 mg Cefuroxime Axetil (Ceftin Tab(*)) 250 mg PO BID [facility] Last Admin: 01/28/17 20:56 Dose: 250 mg Cyanocobalamin (Vitamin B12 Inj *) 1,000 mcg IM DAILY [facility] Stop: 02/02/17 09:01 Last Admin: 01/28/17 09:18 Dose: 1,000 mcg Cyclobenzaprine HCl (Flexeril Tab*) 5 mg PO TID PRN PRN Reason: SPASMS - MUSCLE Dextrose (D50w Syringe 50 Ml*) 12.5 gm IV PUSH .FOR FS < 60 - SS PRN PRN Reason: FS < 60 Docusate Sodium (Colace Cap*) 100 mg PO BID PRN PRN Reason: CONSTIPATION Last Admin: 01/28/17 15:36 Dose: 100 mg Dronedarone (Multaq Tab*) 400 mg PO BID [facility] Last Admin: 01/28/17 20:56 Dose: 400 mg Heparin Sodium (Porcine) (Heparin Vial(*)) 5,000 units SUBCUT Q8HR [facility] Last Admin: 01/29/17 06:08 Dose: 5,000 units Sodium Chloride (Ns 0.9% 1000 Ml*) 1,000 mls @ 50 mls/hr IV PER RATE [facility] Last Admin: 01/28/17 09:21 Dose: 50 mls/hr Insulin Human Lispro (Humalog*) 0 units SUBCUT AC [facility] PRN Reason: Protocol Last Admin: 01/29/17 07:28 Dose: Not Given Morphine Sulfate (Morphine Inj (Syringe)*) 2 mg IV Q4H PRN PRN Reason: PAIN Last Admin: 01/27/17 17:44 Dose: 2 mg Nystatin (Nystatin Top Powder*) 1 applic TOPICAL TID [facility] Last Admin: 01/28/17 22:24 Dose: Not Given Ondansetron HCl (Zofran Inj*) 4 mg IV Q4H PRN PRN Reason: NAUSEA/VOMITING Oxycodone HCl (Roxycodone Tab*) 5 mg PO Q4H PRN PRN Reason: PAIN - MILD TO MODERATE Oxycodone HCl (Roxycodone Tab*) 10 mg PO Q4H PRN PRN Reason: PAIN - MODERATE TO SEVERE Senna (Senokot Tab*) 1 tab PO BID PRN PRN Reason: CONSTIPATION Last Admin: 01/28/17 15:35 Dose: 1 tab Tramadol HCl (Ultram*) 50 mg PO Q6H PRN PRN Reason: PAIN Vital Signs 01/28/17 01/28/17 01/28/17 15:19 18:25 18:28 Temperature 97.5 F 98.8 F 98.8 F Pulse Rate 75 77 77 Respiratory 14 16 16 Rate Blood Pressure 131/65 125/61 125/61 (mmHg) O2 Sat by Pulse 98 98 98 Oximetry 01/28/17 01/28/17 01/29/17 20:00 20:16 00:18 Temperature 98.6 F 98.3 F Pulse Rate 73 75 Respiratory 20 18 20 Rate Blood Pressure 107/86 122/62 (mmHg) O2 Sat by Pulse 99 98 Oximetry 01/29/17 01/29/17 01/29/17 03:01 05:12 07:41 Temperature 97.4 F 98.1 F Pulse Rate 70 72 Respiratory 20 12 Rate Blood Pressure 107/55 136/62 (mmHg) O2 Sat by Pulse 99 97 99 Oximetry Oxygen Devices in Use Now: Nasal Cannula Appearance: Elderly female, lying in bed, NAD Eyes: PERRLA Ears/Nose/Mouth/Throat: Clear Oropharnyx, Mucous Membranes Moist Neck: NL Appearance and Movements; NL JVP Respiratory: Symmetrical Chest Expansion and Respiratory Effort, - - diminished Cardiovascular: RRR - S1, S2, systolic murmur Abdominal: NL Sounds; No Tenderness; No Distention Extremities: - - right knee immobilizer in place, 1+ DP Neurological: - - Alert, oriented to self and place, disoriented to time Lines/Tubes/Other Access: Clean, Dry and Intact Peripheral IV Nutrition: Taking PO's Result Diagrams: 01/28/17 09:14 01/28/17 09:14 Additional Lab and Data: Lab Results 01/20/17 01/20/17 01/20/17 Range/Units 21:30 21:30 21:30 WBC 29.9 H (3.5-10.8) 10^3/ul RBC 4.81 (4.0-5.4) 10^6/ul Hgb 14.7 (12.0-16.0) g/dl Hct 47 (35-47) % MCV 97 (80-97) fL MCH 31 (27-31) pg MCHC 31 (31-36) g/dl RDW 17 H (10.5-15) % Plt Count 263 (150-450) 10^3/ul MPV 10 (7.4-10.4) um3 Immature Gran % (Auto) 5 (0-9) % Absolute Neuts (auto) 28.4 H (1.5-7.7) 10^3/ul Absolute Lymphs (auto) 0.9 L (1.0-4.8) 10^3/ul Absolute Monos (auto) 0.6 (0-0.8) 10^3/ul Absolute Eos (auto) 0 (0-0.6) 10^3/ul Absolute Basos (auto) 0 (0-0.2) 10^3/ul Absolute Nucleated RBC 0 10^3/ul Neutrophils % 90 H (38-83) % Band Neutrophils % 5 (0-8) % Lymphocytes % 3 L (25-47) % Monocytes % 2 (0-13) % Toxic Granulation 2+ Normal RBC Morphology Not Reportable Hem Pathologist Commnt Sodium 134 (133-145) mmol/L Potassium TNP Chloride 97 L (101-111) mmol/L Carbon Dioxide 25 (22-32) mmol/L Anion Gap TNP BUN 40 H (6-24) mg/dL Creatinine 1.25 H (0.51-0.95) mg/dL Est GFR ( Amer) 54.3 (>60) Est GFR (Non-Af Amer) 42.2 (>60) BUN/Creatinine Ratio 32.0 H (8-20) Glucose 204 H (70-100) mg/dL Lactic Acid 2.4 H* (0.5-2.0) mmol/L Calcium 9.2 (8.6-10.3) mg/dL Total Bilirubin 1.30 H (0.2-1.0) mg/dL AST TNP ALT 27 (7-52) U/L Alkaline Phosphatase 72 (34-104) U/L Total Creatine Kinase 6977 H (10-223) U/L Troponin I 0.09 H* (<0.04) ng/mL Total Protein 8.5 (6.4-8.9) g/dL Albumin 3.5 (3.2-5.2) g/dL Globulin 5.0 H (2-4) g/dL Albumin/Globulin Ratio 0.7 L (1-3) Microbiology and Other Data: Microbiology 01/21/17 01:54 Nasal Screen MRSA (PCR)(HENRRY) - Final Nasal Mrsa Negative Assess/Plan/Problems-Billing Assessment: Mrs. Walton is an 72yo F with PMH of morbid obesity with BMI 50, CVA, CAD s/p CABG 2007, pulmonic stenosis, CLAUDE non compliant with CPAP, HLD, Afib on Eliquis , type 2 DM, stasis dermatitis, brought in to ED after being found on the floor , confused, for unknown period of time. - Patient Problems (1) Altered mental status Code(s): R41.82 - ALTERED MENTAL STATUS, UNSPECIFIED Comment: More alert and oriented this morning. Mental status waxes and wanes. Patient being treated for UTI Patient with Vitamin B-12 deficiency - give 7 days IM injection than switch to PO. Labs unremarkable, ammonia level normal. ABG normal - CO2 mildly elevated, which may indicate a need for nighttime BiPAP/ CPAP. Pulse oximetry with multiple desaturation events - will repeat with BiPAP this evening. Patient's appears to have some baseline confusion/forgetfulness. Will continue to discuss with family. (2) Severe sepsis Code(s): A41.9 - SEPSIS, UNSPECIFIED ORGANISM; R65.20 - SEVERE SEPSIS WITHOUT SEPTIC SHOCK Comment: - Patient met sepsis criteria on admission with a qSOFA score of 2 (increased RR , AMS) and with SIRS/sepsis criteria of leukocytosis, tachycardia, complicated by ADELAIDA, sepsis induced encephalopathy, and delirium. - Siginificant leukocytosis with left shift and bandemia. - Source seems to be E. coli UTI - UA showed negative nitrates and LE, trace WBCs, but culture grew E. coli. - There was some concern for endocarditis, but blood cultures are negative. Patient/family declined SJ. - Continue cefuroxime for 14 day course. (3) E. coli UTI Code(s): N39.0 - URINARY TRACT INFECTION, SITE NOT SPECIFIED; B96.20 - UNSP ESCHERICHIA COLI THE CAUSE OF DISEASES CLASSD ELSWHR Comment: Present on admission, not Flowers catheter related. Continue cefuroxime. (4) Fall Comment: Appreciate ortho consult. Femur XR showed distal femur fracture. Ortho performed closed reduction of femur at bedside. Patient w/ knee immobilizer, NWB. Knee is to remain in extension. Unclear if cause of fall is mechanical or syncopal. CT pelvis was negative for fracture. MRI pelvis which was negative for fracture, showed only contusion involving right gluteal and adductor muscles. (5) Delirium Code(s): R41.0 - DISORIENTATION, UNSPECIFIED Comment: Associated with severe sepsis. Suspect delirium superimposed on baseline confusion/forgetfulness Supportive care. (6) Rhabdomyolysis Code(s): M62.82 - RHABDOMYOLYSIS Comment: - Secondary to down time on the floor. - Trending down. (7) Troponin level elevated Code(s): R74.8 - ABNORMAL LEVELS OF OTHER SERUM ENZYMES Comment: - Could be secondary to rhabdo, demand ischemia in the setting of severe sepsis , or NSTEMI. - Continue Aspirin. (8) ADELAIDA (acute kidney injury) Code(s): N17.9 - ACUTE KIDNEY FAILURE, UNSPECIFIED Comment: - Suspect pre-renal in the setting of dehydration/sepsis. - Resolved. (9) Atrial fibrillation Code(s): I48.91 - UNSPECIFIED ATRIAL FIBRILLATION Comment: Currently in sinus rhythm, asymptomatic. Will discuss with ortho when to resume Eliquis. (10) Diabetes Code(s): E11.9 - TYPE 2 DIABETES MELLITUS WITHOUT COMPLICATIONS Comment: PO meds on hold - continue Lispro SS. (11) DVT prophylaxis Code(s): [id number] - Comment: SQ heparin. (12) DNR (do not resuscitate) Status and Disposition: Inpatient. S/p closed reduction of RLE. Likely needs long-term rehab/SNF placement. SW/CM following.
[2017-01-29] MEDS: NS 0.9% 1000 ML* 1,000 ML IV SCH (09:12)
[2017-01-29] MEDS: ceFUROXime TAB(*) 250 MG PO SCH ×2 (09:13→22:29)
[2017-01-29] MEDS: Dronedarone TAB* 400 MG PO SCH ×2 (09:13→22:29)
[2017-01-29] MEDS: Aspirin EC Low Dose* 81 MG TAB.EC PO SCH (09:13)
[2017-01-29] MEDS: Cyanocobalamin INJ * 1,000 MCG/ML VIAL 1 ML VIAL IM SCH (09:13)
[2017-01-29] MEDS: Nystatin TOP POWDER* 15 GM BTL TOPICAL SCH ×3 (09:15→22:34)
--- NOTE | 2017-01-29 09:17 | PN ---
Progress Note - Progress Note SOAP: Subjective: 72 y/o female s/p R distal femur fracture s/p closed reduction at bedside by Dr. Herrera 01/27/2017. Patient confused, believes as [facility] in room, knows name. Resting comfortably, denies pain at rest. Objective: General- Well appearing, resting comfortably. MSK- Knee immobilizer in place, slightly shifted distally, PT pulse R 2+, mild non-pitting edema R leg, sensation intact to light touch, patient repositioned which shows leg straight without rotation. Vital Signs Temp 98.1 F 01/29/17 07:41 Pulse 72 01/29/17 07:41 Resp 12 01/29/17 07:41 BP 136/62 01/29/17 07:41 Pulse Ox 99 01/29/17 07:41 Intake & Output 01/28/17 01/29/17 01/29/17 18:59 06:59 18:59 Intake Total 706 544 Output Total 650 1050 Balance 56 -506 Intake: IV Fluids 424 NS (0.9%) 424 IVPB 346 NS (0.9%) 346 Oral 360 120 Output: Urine 300 Flowers 350 1050 Other: Estimated Void Large # Bowel Movements 0 # Voids 1 Assessment: 72 y/o female s/p R distal femur fracture s/p closed reduction at bedside by Dr. Herrera 01/27/2017. Plan: - Continue knee immoblizer at all times- discussed with nurse to reposition during bathing today - non-weight bearing - PT for mobility/ movement - Continue to wait for medical clearance for ORIF in future. Active Medications Generic Name Dose Route Start Last Admin Trade Name Freq PRN Reason Stop Dose Admin Acetaminophen 975 mg 01/28/17 03:26 Tylenol Tab* PO Q8H PRN PAIN Al Hydrox/Mg Hydrox/Simethicone 30 ml 01/20/17 23:57 Maalox Plus* PO Q6H PRN INDIGESTION Aspirin 81 mg 01/23/17 09:00 01/29/17 09:13 Aspirin Ec Low Dose* PO 81 mg DAILY GRACIE Administration Cefuroxime Axetil 250 mg 01/26/17 21:00 01/29/17 09:13 Ceftin Tab(*) PO 250 mg BID GRACIE Administration Cyanocobalamin 1,000 mcg 01/27/17 17:00 01/29/17 09:13 Vitamin B12 Inj * IM 02/02/17 09:01 1,000 mcg DAILY GRACIE Administration Cyclobenzaprine HCl 5 mg 01/27/17 18:17 Flexeril Tab* PO TID PRN SPASMS - MUSCLE Dextrose 12.5 gm 01/21/17 00:02 D50w Syringe 50 Ml* IV PUSH .FOR FS < 60 - SS PRN FS < 60 Docusate Sodium 100 mg 01/20/17 23:57 01/28/17 15:36 Colace Cap* PO 100 mg BID PRN Administration CONSTIPATION Dronedarone 400 mg 01/22/17 13:00 01/29/17 09:13 Multaq Tab* PO 400 mg BID GRACIE Administration Heparin Sodium (Porcine) 5,000 units 01/21/17 06:00 01/29/17 06:08 Heparin Vial(*) SUBCUT 5,000 units Q8HR GRACIE Administration Sodium Chloride 1,000 mls @ 50 mls/hr 01/23/17 13:39 01/29/17 09:12 Ns 0.9% 1000 Ml* IV 50 mls/hr PER RATE GRACIE Administration Insulin Human Lispro 0 units 01/25/17 11:30 01/29/17 07:28 Humalog* SUBCUT Not Given AC [facility] Protocol Morphine Sulfate 2 mg 01/20/17 23:57 01/27/17 17:44 Morphine Inj (Syringe)* IV 2 mg Q4H PRN Administration PAIN Nystatin 1 applic 01/21/17 02:00 01/29/17 09:15 Nystatin Top Powder* TOPICAL 1 applic TID GRACIE Administration Ondansetron HCl 4 mg 01/20/17 23:57 Zofran Inj* IV Q4H PRN NAUSEA/VOMITING Oxycodone HCl 5 mg 01/27/17 18:17 Roxycodone Tab* PO Q4H PRN PAIN - MILD TO MODERATE Oxycodone HCl 10 mg 01/27/17 18:17 Roxycodone Tab* PO Q4H PRN PAIN - MODERATE TO SEVERE Senna 1 tab 01/20/17 23:57 01/28/17 15:35 Senokot Tab* PO 1 tab BID PRN Administration CONSTIPATION Tramadol HCl 50 mg 01/27/17 18:17 Ultram* PO Q6H PRN PAIN Laboratory Results - last 24 hr 01/28/17 01/28/17 01/28/17 09:14 09:14 09:14 WBC 8.9 RBC 3.47 L Hgb 10.8 L Hct 34 L MCV 98 H MCH 31 MCHC 32 RDW 16 H Plt Count 155 MPV 9 Neut % (Auto) 82.1 Lymph % (Auto) 5.7 L [place] % (Auto) 9.7 H Eos % (Auto) 2.1 Baso % (Auto) 0.4 Absolute Neuts (auto) 7.3 Absolute Lymphs (auto) 0.5 L Absolute Monos (auto) 0.9 H Absolute Eos (auto) 0.2 Absolute Basos (auto) 0 Absolute Nucleated RBC 0.02 Nucleated RBC % 0.2 ABG pH ABG pCO2 ABG pO2 ABG HCO3 ABG O2 Saturation ABG Base Excess Sodium 134 Potassium 4.2 Chloride 99 L Carbon Dioxide 33 H Anion Gap 2 BUN 14 Creatinine 0.61 Est GFR ( Amer) 124.3 Est GFR (Non-Af Amer) 96.7 BUN/Creatinine Ratio 23.0 H Glucose 99 POC Glucose (mg/dL) Calcium 8.1 L Ammonia 51 01/28/17 01/28/17 01/28/17 09:45 11:20 16:22 WBC RBC Hgb Hct MCV MCH MCHC RDW Plt Count MPV Neut % (Auto) Lymph % (Auto) [place] % (Auto) Eos % (Auto) Baso % (Auto) Absolute Neuts (auto) Absolute Lymphs (auto) Absolute Monos (auto) Absolute Eos (auto) Absolute Basos (auto) Absolute Nucleated RBC Nucleated RBC % ABG pH 7.36 ABG pCO2 63 H ABG pO2 104 H ABG HCO3 31.5 H ABG O2 Saturation 100.5 H ABG Base Excess 8.5 H Sodium Potassium Chloride Carbon Dioxide Anion Gap BUN Creatinine Est GFR ( Amer) Est GFR (Non-Af Amer) BUN/Creatinine Ratio Glucose POC Glucose (mg/dL) 133 H 165 H Calcium Ammonia 01/28/17 01/29/17 22:09 07:24 WBC RBC Hgb Hct MCV MCH MCHC RDW Plt Count MPV Neut % (Auto) Lymph % (Auto) [place] % (Auto) Eos % (Auto) Baso % (Auto) Absolute Neuts (auto) Absolute Lymphs (auto) Absolute Monos (auto) Absolute Eos (auto) Absolute Basos (auto) Absolute Nucleated RBC Nucleated RBC % ABG pH ABG pCO2 ABG pO2 ABG HCO3 ABG O2 Saturation ABG Base Excess Sodium Potassium Chloride Carbon Dioxide Anion Gap BUN Creatinine Est GFR ( Amer) Est GFR (Non-Af Amer) BUN/Creatinine Ratio Glucose POC Glucose (mg/dL) 170 H 123 H Calcium Ammonia <Ольга Schulte - Last Filed: 01/29/17 09:13> - Progress Note SOAP: Subjective: Pt is insure if the left lower extremity hurts or not. Dispo is being investigated. Objective: Pt appears comfortable RLE: - knee immobilizer in place - +EHL/EDL/FHL/FD motor - sensation fully intact foot - CR < 2 sec, palpable PT pulse Assessment: s/p R distal femur closed reduction with local anesthesia Plan: - X-rays post-reduction showed reduction adequate enough to enable bony healing. - Given the patient's high-risk for anesthesia (severe , pulmonary artery stenosis and aneurysm) and low functional baseline (homebound ambulator with walker, persistence limited mental status), this seems an appropriate definitive treatment. The patient's family is aware that this will likely lead to a very stiff knee. Only if cardiology described low risk of anesthesia and family insisted would we consider surgery. - Follow-up with me in the office in 3 weeks for x-rays - Knee immobilizer at all times, except for hygiene and skin ulcer checks. When the knee immobilizer is unlocked, the knee must remain fully extended. - Plan is for knee immobilizer for 2 months, non-weight bearing or, if can tolerate, toe-touch weight bearing. Then another 1 month with knee in immobilizer or brace, depending on healing. - Return to [facility] is fine as no operation expected - Patient may work with PT <Oscar Herrera - Last Filed: 01/29/17 11:31>
[2017-01-29] MEDS: Apixaban* 5 MG TAB PO SCH (22:28)
[2017-01-30] MEDS: NS 0.9% 1000 ML* 1,000 ML IV SCH (06:31)
[2017-01-30] MEDS: Insulin LISPRO* 1 UNITS UNIT SUBCUT SCH ×3 (07:22→17:16)
--- NOTE | 2017-01-30 08:42 | PN ---
Subjective Date of Service: 01/30/17 Interval History: Patient seen and examined at bedside. She reports sleeping well last night with the BiPAP and states "it helped my breathing." Denies CP, SOB, n/v. Reports leg pain is better. No acute complaints. Family History: Unchanged from Admission Social History: Unchanged from Admission Past Medical History: Unchanged from Admission Objective Active Medications: Acetaminophen (Tylenol Tab*) 975 mg PO Q8H PRN PRN Reason: PAIN Al Hydrox/Mg Hydrox/Simethicone (Maalox Plus*) 30 ml PO Q6H PRN PRN Reason: INDIGESTION Apixaban (Eliquis*) 5 mg PO BID [facility] Last Admin: 01/29/17 22:28 Dose: 5 mg Aspirin (Aspirin Ec Low Dose*) 81 mg PO DAILY [facility] Last Admin: 01/29/17 09:13 Dose: 81 mg Atorvastatin Calcium (Lipitor*) 40 mg PO DAILY [facility] Cefuroxime Axetil (Ceftin Tab(*)) 250 mg PO BID [facility] Stop: 02/04/17 00:00 Last Admin: 01/29/17 22:29 Dose: 250 mg Cyanocobalamin (Vitamin B12 Inj *) 1,000 mcg IM DAILY [facility] Stop: 02/02/17 09:01 Last Admin: 01/29/17 09:13 Dose: 1,000 mcg Cyclobenzaprine HCl (Flexeril Tab*) 5 mg PO TID PRN PRN Reason: SPASMS - MUSCLE Dextrose (D50w Syringe 50 Ml*) 12.5 gm IV PUSH .FOR FS < 60 - SS PRN PRN Reason: FS < 60 Docusate Sodium (Colace Cap*) 100 mg PO BID PRN PRN Reason: CONSTIPATION Last Admin: 01/28/17 15:36 Dose: 100 mg Dronedarone (Multaq Tab*) 400 mg PO BID [facility] Last Admin: 01/29/17 22:29 Dose: 400 mg Sodium Chloride (Ns 0.9% 1000 Ml*) 1,000 mls @ 50 mls/hr IV PER RATE [facility] Last Admin: 01/30/17 06:31 Dose: 50 mls/hr Insulin Human Lispro (Humalog*) 0 units SUBCUT AC [facility] PRN Reason: Protocol Last Admin: 01/30/17 07:22 Dose: Not Given Morphine Sulfate (Morphine Inj (Syringe)*) 2 mg IV Q4H PRN PRN Reason: PAIN Last Admin: 01/27/17 17:44 Dose: 2 mg Nystatin (Nystatin Top Powder*) 1 applic TOPICAL TID GRACIE Last Admin: 01/29/17 22:34 Dose: Not Given Ondansetron HCl (Zofran Inj*) 4 mg IV Q4H PRN PRN Reason: NAUSEA/VOMITING Oxycodone HCl (Roxycodone Tab*) 5 mg PO Q4H PRN PRN Reason: PAIN - MILD TO MODERATE Oxycodone HCl (Roxycodone Tab*) 10 mg PO Q4H PRN PRN Reason: PAIN - MODERATE TO SEVERE Senna (Senokot Tab*) 1 tab PO BID PRN PRN Reason: CONSTIPATION Last Admin: 01/28/17 15:35 Dose: 1 tab Tramadol HCl (Ultram*) 50 mg PO Q6H PRN PRN Reason: PAIN Vital Signs 01/29/17 01/29/17 01/29/17 16:13 23:22 23:57 Temperature 97.7 F Pulse Rate 74 72 Respiratory 18 18 Rate Blood Pressure 122/62 119/57 (mmHg) O2 Sat by Pulse 92 Oximetry 01/30/17 04:16 Temperature 97.6 F Pulse Rate 64 Respiratory 18 Rate Blood Pressure 108/57 (mmHg) O2 Sat by Pulse 87 Oximetry Oxygen Devices in Use Now: Nasal Cannula Appearance: Female patient, lying in bed, NAD Eyes: No Scleral Icterus Ears/Nose/Mouth/Throat: Mucous Membranes Moist Neck: NL Appearance and Movements; NL JVP Respiratory: Symmetrical Chest Expansion and Respiratory Effort, Clear to Auscultation Cardiovascular: RRR - S1, S2, + systolic murmur Abdominal: NL Sounds; No Tenderness; No Distention Extremities: - - 1+ DP, right knee immobilizer in place, + sensation/movement distally Neurological: - - Alert, oriented to self, knows she is "at a hospital in [place] " Lines/Tubes/Other Access: Clean, Dry and Intact Peripheral IV Nutrition: Taking PO's Result Diagrams: 01/28/17 09:14 01/28/17 09:14 Additional Lab and Data: Lab Results 01/20/17 01/20/17 01/20/17 Range/Units 21:30 21:30 21:30 WBC 29.9 H (3.5-10.8) 10^3/ul RBC 4.81 (4.0-5.4) 10^6/ul Hgb 14.7 (12.0-16.0) g/dl Hct 47 (35-47) % MCV 97 (80-97) fL MCH 31 (27-31) pg MCHC 31 (31-36) g/dl RDW 17 H (10.5-15) % Plt Count 263 (150-450) 10^3/ul MPV 10 (7.4-10.4) um3 Immature Gran % (Auto) 5 (0-9) % Absolute Neuts (auto) 28.4 H (1.5-7.7) 10^3/ul Absolute Lymphs (auto) 0.9 L (1.0-4.8) 10^3/ul Absolute Monos (auto) 0.6 (0-0.8) 10^3/ul Absolute Eos (auto) 0 (0-0.6) 10^3/ul Absolute Basos (auto) 0 (0-0.2) 10^3/ul Absolute Nucleated RBC 0 10^3/ul Neutrophils % 90 H (38-83) % Band Neutrophils % 5 (0-8) % Lymphocytes % 3 L (25-47) % Monocytes % 2 (0-13) % Toxic Granulation 2+ Normal RBC Morphology Not Reportable Hem Pathologist Commnt Sodium 134 (133-145) mmol/L Potassium TNP Chloride 97 L (101-111) mmol/L Carbon Dioxide 25 (22-32) mmol/L Anion Gap TNP BUN 40 H (6-24) mg/dL Creatinine 1.25 H (0.51-0.95) mg/dL Est GFR ( Amer) 54.3 (>60) Est GFR (Non-Af Amer) 42.2 (>60) BUN/Creatinine Ratio 32.0 H (8-20) Glucose 204 H (70-100) mg/dL Lactic Acid 2.4 H* (0.5-2.0) mmol/L Calcium 9.2 (8.6-10.3) mg/dL Total Bilirubin 1.30 H (0.2-1.0) mg/dL AST TNP ALT 27 (7-52) U/L Alkaline Phosphatase 72 (34-104) U/L Total Creatine Kinase 6977 H (10-223) U/L Troponin I 0.09 H* (<0.04) ng/mL Total Protein 8.5 (6.4-8.9) g/dL Albumin 3.5 (3.2-5.2) g/dL Globulin 5.0 H (2-4) g/dL Albumin/Globulin Ratio 0.7 L (1-3) Microbiology and Other Data: Microbiology 01/21/17 01:54 Nasal Screen MRSA (PCR)(HENRRY) - Final Nasal Mrsa Negative Assess/Plan/Problems-Billing Assessment: Mrs. Walton is an 72yo F with PMH of morbid obesity with BMI 50, CVA, CAD s/p CABG 2007, pulmonic stenosis, CLAUDE non compliant with CPAP, HLD, Afib on Eliquis , type 2 DM, stasis dermatitis, brought in to ED after being found on the floor , confused, for unknown period of time. - Patient Problems (1) Altered mental status Code(s): R41.82 - ALTERED MENTAL STATUS, UNSPECIFIED Comment: Appears to be at baseline mental status Patient being treated for UTI Patient with Vitamin B-12 deficiency - give 7 days IM injection than switch to PO. Labs unremarkable, ammonia level normal. ABG normal - CO2 mildly elevated, has hx of CLAUDE. Continue nighttime BiPAP. (2) Severe sepsis Code(s): A41.9 - SEPSIS, UNSPECIFIED ORGANISM; R65.20 - SEVERE SEPSIS WITHOUT SEPTIC SHOCK Comment: Patient met sepsis criteria on admission with a qSOFA score of 2 (increased RR, AMS) and with SIRS/sepsis criteria of leukocytosis, tachycardia, complicated by ADELAIDA, sepsis induced encephalopathy, and delirium. Siginificant leukocytosis with left shift and bandemia. Source seems to be E. coli UTI - UA showed negative nitrates and LE, trace WBCs , but culture grew E. coli. There was some concern for endocarditis, but blood cultures are negative. Patient/family declined SJ. Continue cefuroxime for 14 day course. (3) E. coli UTI Code(s): N39.0 - URINARY TRACT INFECTION, SITE NOT SPECIFIED; B96.20 - UNSP ESCHERICHIA COLI THE CAUSE OF DISEASES CLASSD ELSWHR Comment: Present on admission, not Flowers catheter related. Continue cefuroxime. (4) Fall Comment: Appreciate ortho consult. Femur XR showed distal femur fracture. Ortho performed closed reduction of femur at bedside. Patient w/ knee immobilizer, NWB. Knee is to remain in extension. Unclear if cause of fall is mechanical or syncopal. CT pelvis was negative for fracture. MRI pelvis which was negative for fracture, showed only contusion involving right gluteal and adductor muscles. (5) Delirium Code(s): R41.0 - DISORIENTATION, UNSPECIFIED Comment: Associated with severe sepsis. Suspect delirium superimposed on baseline confusion/forgetfulness Supportive care. (6) Atrial fibrillation Code(s): I48.91 - UNSPECIFIED ATRIAL FIBRILLATION Comment: Currently in sinus rhythm, asymptomatic. Continue Eliquis. (7) Diabetes Code(s): E11.9 - TYPE 2 DIABETES MELLITUS WITHOUT COMPLICATIONS Comment: PO meds on hold - continue Lispro SS. (8) Obstructive sleep apnea Code(s): G47.33 - OBSTRUCTIVE SLEEP APNEA (ADULT) (PEDIATRIC) Comment: Previously non-compliant with CPAP at home Continue to offer hospital BiPAP, appears to be tolerating it here. (9) DVT prophylaxis Code(s): ENA1664 - Comment: [place] (10) DNR (do not resuscitate) Status and Disposition: Inpatient. S/p closed reduction of RLE. Working on placement/rehab for patient. Continue PT/OT.
[2017-01-30] MEDS: Dronedarone TAB* 400 MG PO SCH ×2 (08:43→21:08)
[2017-01-30] MEDS: ceFUROXime TAB(*) 250 MG PO SCH ×2 (08:43→21:08)
[2017-01-30] MEDS: Aspirin EC Low Dose* 81 MG TAB.EC PO SCH (08:43)
[2017-01-30] MEDS: Atorvastatin* 40 MG TAB PO SCH (08:43)
[2017-01-30] MEDS: Cyanocobalamin INJ * 1,000 MCG/ML VIAL 1 ML VIAL IM SCH (08:43)
[2017-01-30] MEDS: Apixaban* 5 MG TAB PO SCH ×2 (08:43→21:08)
--- NOTE | 2017-01-30 09:54 | PN ---
Progress Note - Progress Note SOAP: Subjective: pt resting comfortably in bed with no complaints of right leg pain, immobilizer in place Objective: Vital Signs Temp Pulse Resp BP Pulse Ox 98.3 F 81 18 110/58 86 01/30/17 07:10 01/30/17 07:10 01/30/17 08:00 01/30/17 07:10 01/30/17 07:10 Laboratory Last Values WBC 8.9 10^3/ul (3.5-10.8) 01/28/17 09:14 RBC 3.47 10^6/ul (4.0-5.4) L 01/28/17 09:14 Hgb 10.8 g/dl (12.0-16.0) L 01/28/17 09:14 Hct 34 % (35-47) L 01/28/17 09:14 MCV 98 fL (80-97) H 01/28/17 09:14 MCH 31 pg (27-31) 01/28/17 09:14 MCHC 32 g/dl (31-36) 01/28/17 09:14 RDW 16 % (10.5-15) H 01/28/17 09:14 Plt Count 155 10^3/ul (150-450) 01/28/17 09:14 MPV 9 um3 (7.4-10.4) 01/28/17 09:14 Immature Gran % (Auto) 5 % (0-9) 01/20/17 21:30 Neut % (Auto) 82.1 % (38-83) 01/28/17 09:14 Lymph % (Auto) 5.7 % (25-47) L 01/28/17 09:14 [place] % (Auto) 9.7 % (1-9) H 01/28/17 09:14 Eos % (Auto) 2.1 % (0-6) 01/28/17 09:14 Baso % (Auto) 0.4 % (0-2) 01/28/17 09:14 Absolute Neuts (auto) 7.3 10^3/ul (1.5-7.7) 01/28/17 09:14 Absolute Lymphs (auto) 0.5 10^3/ul (1.0-4.8) L 01/28/17 09:14 Absolute Monos (auto) 0.9 10^3/ul (0-0.8) H 01/28/17 09:14 Absolute Eos (auto) 0.2 10^3/ul (0-0.6) 01/28/17 09:14 Absolute Basos (auto) 0 10^3/ul (0-0.2) 01/28/17 09:14 Absolute Nucleated RBC 0.02 10^3/ul 01/28/17 09:14 Neutrophils % 92 % (38-83) H 01/21/17 12:30 Band Neutrophils % 5 % (0-8) 01/20/17 21:30 Lymphocytes % 5 % (25-47) L 01/21/17 12:30 Monocytes % 3 % (0-13) 01/21/17 12:30 Nucleated RBC % 0.2 01/28/17 09:14 Differential Comment 01/21/17 12:30 Toxic Granulation 2+ 01/20/17 21:30 Normal RBC Morphology Normal (Normal) 01/21/17 12:30 Hem Pathologist Commnt 01/21/17 12:30 INR (Anticoag Therapy) 1.31 (0.89-1.11) H 01/21/17 02:41 APTT 25.9 seconds (26.0-36.3) L 01/21/17 02:41 ABG pH 7.36 (7.35-7.45) 01/28/17 09:45 ABG pCO2 63 mmHg (35-45) H 01/28/17 09:45 ABG pO2 104 mmHg (80-100) H 01/28/17 09:45 ABG HCO3 31.5 mmol/L (19-31) H 01/28/17 09:45 ABG O2 Saturation 100.5 % (95-98) H 01/28/17 09:45 ABG Base Excess 8.5 (-2.0-2.0) H 01/28/17 09:45 Sodium 134 mmol/L (133-145) 01/28/17 09:14 Potassium 4.2 mmol/L (3.5-5.0) 01/28/17 09:14 Chloride 99 mmol/L (101-111) L 01/28/17 09:14 Carbon Dioxide 33 mmol/L (22-32) H 01/28/17 09:14 Anion Gap 2 mmol/L (2-11) 01/28/17 09:14 BUN 14 mg/dL (6-24) 01/28/17 09:14 Creatinine 0.61 mg/dL (0.51-0.95) 01/28/17 09:14 Est GFR ( Amer) 124.3 (>60) 01/28/17 09:14 Est GFR (Non-Af Amer) 96.7 (>60) 01/28/17 09:14 BUN/Creatinine Ratio 23.0 (8-20) H 01/28/17 09:14 Glucose 99 mg/dL (70-100) 01/28/17 09:14 POC Glucose (mg/dL) 97 mg/dL (74-106) 01/30/17 07:21 Lactic Acid 1.4 mmol/L (0.5-2.0) 01/22/17 05:00 Calcium 8.1 mg/dL (8.6-10.3) L 01/28/17 09:14 Magnesium 1.8 mg/dL (1.9-2.7) L 01/27/17 05:51 Total Bilirubin 1.30 mg/dL (0.2-1.0) H 01/23/17 09:07 AST 50 U/L (13-39) H 01/23/17 09:07 ALT 25 U/L (7-52) 01/23/17 09:07 Alkaline Phosphatase 48 U/L (34-104) 01/23/17 09:07 Ammonia 51 mol/L (16-53) 01/28/17 09:14 Total Creatine Kinase 1180 U/L (10-223) H 01/22/17 05:00 Troponin I 0.15 ng/mL (<0.04) H* 01/21/17 12:30 C-Reactive Protein 48.59 mg/L (< 5.00) H 01/27/17 05:51 Total Protein 6.1 g/dL (6.4-8.9) L 01/23/17 09:07 Albumin 2.7 g/dL (3.2-5.2) L 01/23/17 09:07 Globulin 3.4 g/dL (2-4) 01/23/17 09:07 Albumin/Globulin Ratio 0.8 (1-3) L 01/23/17 09:07 Vitamin B12 110 pg/mL (180-914) L 01/27/17 05:51 Methylmalonic Acid 0.88 nmol/mL (<=0.40) H 01/27/17 05:51 Urine Color Maryann 01/21/17 01:05 Urine Appearance Cloudy 01/21/17 01:05 Urine pH 5.0 (5-9) 01/21/17 01:05 Ur Specific [place] 1.021 (1.010-1.030) 01/21/17 01:05 Urine Protein 1+(30 mg/dl) (Negative) H 01/21/17 01:05 Urine Ketones 1+ (Negative) H 01/21/17 01:05 Urine Blood 3+ (Negative) H 01/21/17 01:05 Urine Nitrate Negative (Negative) 01/21/17 01:05 Urine Bilirubin Negative (Negative) 01/21/17 01:05 Urine Urobilinogen Positive (Negative) H 01/21/17 01:05 Ur Leukocyte Esterase Negative (Negative) 01/21/17 01:05 Urine WBC (Auto) Trace(0-5/hpf) (Absent) 01/21/17 01:05 Urine RBC (Auto) Trace(0-2/hpf) (Absent) 01/21/17 01:05 Ur Squamous Epith Cells Present (Absent) H 01/21/17 01:05 Urine Bacteria 2+ (Absent) H 01/21/17 01:05 Hyaline Casts Present (Absent) H 01/21/17 01:05 Urine Glucose Negative (Negative) 01/21/17 01:05 PE: NVI, immobilizer in place Assessment: 72 yo with right distal femur fracture, s/p closed reduction Plan: 1) continue PT- NWB RLE, immobilizer at all times except for hygiene and skin checks 2) keep leg in extension 3) hospitalist co-managing 4) will continue to follow
[2017-01-30] MEDS: Nystatin TOP POWDER* 15 GM BTL TOPICAL SCH ×3 (12:53→21:21)
[2017-01-31] MEDS: NS 0.9% 1000 ML* 1,000 ML IV SCH (07:09)
[2017-01-31 08:35] LABS: BUN/Creatinine Ratio 21.5 (8-20); EGFR African American 115.6 (>60); EGFR Non-African American 89.9 (>60)
[2017-01-31] MEDS: ceFUROXime TAB(*) 250 MG PO SCH ×2 (09:06→20:47)
[2017-01-31] MEDS: Atorvastatin* 40 MG TAB PO SCH (09:06)
[2017-01-31] MEDS: Dronedarone TAB* 400 MG PO SCH ×2 (09:07→20:47)
[2017-01-31] MEDS: Apixaban* 5 MG TAB PO SCH ×2 (09:07→20:48)
[2017-01-31] MEDS: Insulin LISPRO* 1 UNITS UNIT SUBCUT SCH ×3 (09:08→18:22)
[2017-01-31] MEDS: Cyanocobalamin INJ * 1,000 MCG/ML VIAL 1 ML VIAL IM SCH (09:09)
[2017-01-31] MEDS: Nystatin TOP POWDER* 15 GM BTL TOPICAL SCH ×3 (09:09→20:53)
--- NOTE | 2017-01-31 18:43 | PN ---
Subjective Date of Service: 01/31/17 Interval History: This is a 72 yo female with dementia, atrial fibrillation, DM and CLAUDE who was admitted after a fall resulting in a R distal femure fracture with EColi sepsis of a urinary source. Fracture was managed non-operatively and current recommendation is to remain NWB in an immobilizer for a total of 2 months. Pre- operative echo revealed severe with preserved EF. Patient reports pain in her knee. She denies CP or SOB. No n/v. Nursing staff is extremely concerned about the state of her skin and risk for breakdown. They have been taking numerous precautions to place produce barriers to friction especially along the edge of her brace. Objective Active Medications: Acetaminophen (Tylenol Tab*) 975 mg PO Q8H PRN PRN Reason: PAIN Al Hydrox/Mg Hydrox/Simethicone (Maalox Plus*) 30 ml PO Q6H PRN PRN Reason: INDIGESTION Apixaban (Eliquis*) 5 mg PO BID [facility] Last Admin: 01/31/17 09:07 Dose: 5 mg Atorvastatin Calcium (Lipitor*) 40 mg PO DAILY [facility] Last Admin: 01/31/17 09:06 Dose: 40 mg Cefuroxime Axetil (Ceftin Tab(*)) 250 mg PO BID [facility] Stop: 02/04/17 00:00 Last Admin: 01/31/17 09:06 Dose: 250 mg Cyanocobalamin (Vitamin B12 Inj *) 1,000 mcg IM DAILY [facility] Stop: 02/02/17 09:01 Last Admin: 01/31/17 09:09 Dose: 1,000 mcg Cyclobenzaprine HCl (Flexeril Tab*) 5 mg PO TID PRN PRN Reason: SPASMS - MUSCLE Dextrose (D50w Syringe 50 Ml*) 12.5 gm IV PUSH .FOR FS < 60 - SS PRN PRN Reason: FS < 60 Docusate Sodium (Colace Cap*) 100 mg PO BID PRN PRN Reason: CONSTIPATION Last Admin: 01/28/17 15:36 Dose: 100 mg Dronedarone (Multaq Tab*) 400 mg PO BID [facility] Last Admin: 01/31/17 09:07 Dose: 400 mg Insulin Human Lispro (Humalog*) 0 units SUBCUT AC [facility] PRN Reason: Protocol Last Admin: 01/31/17 18:22 Dose: 9 units Morphine Sulfate (Morphine Inj (Syringe)*) 2 mg IV Q4H PRN PRN Reason: PAIN Last Admin: 01/27/17 17:44 Dose: 2 mg Nystatin (Nystatin Top Powder*) 1 applic TOPICAL TID [facility] Last Admin: 01/31/17 14:41 Dose: Not Given Ondansetron HCl (Zofran Inj*) 4 mg IV Q4H PRN PRN Reason: NAUSEA/VOMITING Oxycodone HCl (Roxycodone Tab*) 5 mg PO Q4H PRN PRN Reason: PAIN - MILD TO MODERATE Oxycodone HCl (Roxycodone Tab*) 10 mg PO Q4H PRN PRN Reason: PAIN - MODERATE TO SEVERE Senna (Senokot Tab*) 1 tab PO BID PRN PRN Reason: CONSTIPATION Last Admin: 01/28/17 15:35 Dose: 1 tab Tramadol HCl (Ultram*) 50 mg PO Q6H PRN PRN Reason: PAIN Vital Signs: Temp Pulse Resp BP Pulse Ox 98.2 F 84 16 120/50 99 01/31/17 15:36 01/31/17 15:36 01/31/17 12:41 01/31/17 15:36 01/31/17 15:36 Appearance: Morbidly obese elderly woman in NAD. Accompanied by her sister and [id number] Respiratory: Symmetrical Chest Expansion and Respiratory Effort, Clear to Auscultation Cardiovascular: NL Sounds; No Murmurs; No JVD, RRR Extremities: - - 2+ RLE, trace LLE, R leg with immobilizer in placce Neurological: - - alert, confused Result Diagrams: 01/28/17 09:14 01/31/17 08:02 Additional Lab and Data: . Microbiology and Other Data: Microbiology 01/21/17 01:54 Nasal Screen MRSA (PCR)(HENRRY) - Final Nasal Mrsa Negative Assess/Plan/Problems-Billing Assessment: Mrs. Walton is an 72yo F with PMH of morbid obesity with BMI 50, CVA, CAD s/p CABG 2007, pulmonic stenosis, CLAUDE non compliant with CPAP, HLD, Afib on Eliquis , type 2 DM, stasis dermatitis, brought in to ED after being found on the floor , confused, for unknown period of time. - Patient Problems (1) Severe sepsis Comment: Patient met sepsis criteria on admission with a qSOFA score of 2 (increased RR, AMS) and with SIRS/sepsis criteria of leukocytosis, tachycardia, complicated by ADELAIDA, sepsis induced encephalopathy, and delirium. Siginificant leukocytosis with left shift and bandemia. Source seems to be E. coli UTI - UA showed negative nitrates and LE, trace WBCs , but culture grew E. coli. There was some concern for endocarditis, but blood cultures are negative. Patient/family declined SJ. Continue cefuroxime for 14 day course. (2) Femur fracture, right Comment: Distal femur fracture Appreciate ortho input Closed reduction with recommendations for 8 weeks of NWB and immobilization (3) Encephalopathy Comment: With underlying mild dementia Resolved, mental status largely back to baseline Likely secondary to sepsis (4) Rhabdomyolysis Comment: Secondary to down time on the floor. Resolve (5) E. coli UTI Comment: Present on admission, not Flowers catheter related. Continue cefuroxime. Blood cultures neg (6) Aortic stenosis Comment: Severe Currently asx with preserved EF Requires further discussion as an outpatient regarding surgical intervention Family has decided against immediate intervention to allow for surgical fixation of the R fremur fracture (7) ADELAIDA (acute kidney injury) Comment: Resolved Secondary to sepsis/rhabdo (8) Troponin level elevated Comment: No evidence of ACS Could be secondary to rhabdo, demand ischemia in the setting of severe sepsis, or NSTEMI. Continue Aspirin. (9) Atrial fibrillation Comment: Currently in sinus rhythm, asymptomatic. Continue Eliquis. (10) Diabetes Comment: PO meds on hold - continue Lispro SS. Will check HgbA1c (11) Obstructive sleep apnea Comment: Previously non-compliant with CPAP at home Continue to offer hospital BiPAP, appears to be tolerating it here. (12) CAD (coronary artery disease) Comment: Currently asx Cont med management (13) Morbid obesity Comment: BMI 66 (14) Pulmonic stenosis Comment: With mod to severe pul HTN (15) DNR (do not resuscitate) (16) DVT prophylaxis Comment: Eliquis Status and Disposition: Inpatient. S/p closed reduction of RLE. Working on placement/rehab for patient, patient's family in the [facility]. Continue PT/OT.
[2017-02-01] MEDS: Insulin LISPRO* 1 UNITS UNIT SUBCUT SCH ×3 (07:45→16:49)
[2017-02-01] MEDS: Cyanocobalamin INJ * 1,000 MCG/ML VIAL 1 ML VIAL IM SCH (08:33)
[2017-02-01] MEDS: ceFUROXime TAB(*) 250 MG PO SCH ×2 (08:34→21:51)
[2017-02-01] MEDS: Apixaban* 5 MG TAB PO SCH ×2 (08:34→21:51)
[2017-02-01] MEDS: Nystatin TOP POWDER* 15 GM BTL TOPICAL SCH ×3 (08:34→21:58)
[2017-02-01] MEDS: Atorvastatin* 40 MG TAB PO SCH (08:34)
[2017-02-01] MEDS: Dronedarone TAB* 400 MG PO SCH ×2 (08:34→21:50)
--- NOTE | 2017-02-01 10:06 | PN ---
Subjective Date of Service: 02/01/17 Interval History: Patient offers no acute complaints. She reports the pain in her leg is well controlled. Denies SOB or CP. No abd pain, n/v. Objective Active Medications: Acetaminophen (Tylenol Tab*) 975 mg PO Q8H PRN PRN Reason: PAIN Al Hydrox/Mg Hydrox/Simethicone (Maalox Plus*) 30 ml PO Q6H PRN PRN Reason: INDIGESTION Apixaban (Eliquis*) 5 mg PO BID [facility] Last Admin: 02/01/17 08:34 Dose: 5 mg Atorvastatin Calcium (Lipitor*) 40 mg PO DAILY [facility] Last Admin: 02/01/17 08:34 Dose: 40 mg Cefuroxime Axetil (Ceftin Tab(*)) 250 mg PO BID [facility] Stop: 02/04/17 00:00 Last Admin: 02/01/17 08:34 Dose: 250 mg Cyanocobalamin (Vitamin B12 Inj *) 1,000 mcg IM DAILY [facility] Stop: 02/02/17 09:01 Last Admin: 02/01/17 08:33 Dose: 1,000 mcg Cyclobenzaprine HCl (Flexeril Tab*) 5 mg PO TID PRN PRN Reason: SPASMS - MUSCLE Dextrose (D50w Syringe 50 Ml*) 12.5 gm IV PUSH .FOR FS < 60 - SS PRN PRN Reason: FS < 60 Docusate Sodium (Colace Cap*) 100 mg PO BID PRN PRN Reason: CONSTIPATION Last Admin: 01/28/17 15:36 Dose: 100 mg Dronedarone (Multaq Tab*) 400 mg PO BID [facility] Last Admin: 02/01/17 08:34 Dose: 400 mg Insulin Human Lispro (Humalog*) 0 units SUBCUT AC [facility] PRN Reason: Protocol Last Admin: 02/01/17 07:45 Dose: Not Given Morphine Sulfate (Morphine Inj (Syringe)*) 2 mg IV Q4H PRN PRN Reason: PAIN Last Admin: 01/27/17 17:44 Dose: 2 mg Nystatin (Nystatin Top Powder*) 1 applic TOPICAL TID [facility] Last Admin: 02/01/17 08:34 Dose: 1 applic Ondansetron HCl (Zofran Inj*) 4 mg IV Q4H PRN PRN Reason: NAUSEA/VOMITING Oxycodone HCl (Roxycodone Tab*) 5 mg PO Q4H PRN PRN Reason: PAIN - MILD TO MODERATE Oxycodone HCl (Roxycodone Tab*) 10 mg PO Q4H PRN PRN Reason: PAIN - MODERATE TO SEVERE Senna (Senokot Tab*) 1 tab PO BID PRN PRN Reason: CONSTIPATION Last Admin: 01/28/17 15:35 Dose: 1 tab Tramadol HCl (Ultram*) 50 mg PO Q6H PRN PRN Reason: PAIN Vital Signs: Temp Pulse Resp BP Pulse Ox 98.0 F 73 16 117/53 98 01/31/17 23:29 02/01/17 04:35 02/01/17 04:35 02/01/17 04:35 02/01/17 04:35 Oxygen Devices in Use Now: Nasal Cannula Appearance: Well appearing elderly obese female in NAD Respiratory: Symmetrical Chest Expansion and Respiratory Effort, Clear to Auscultation Cardiovascular: RRR Extremities: - - RLE edema at the foot 2+ edema, LLE trace edema Neurological: Alert and Oriented x 3 Result Diagrams: 01/28/17 09:14 01/31/17 08:02 Additional Lab and Data: . Microbiology and Other Data: Microbiology 01/21/17 01:54 Nasal Screen MRSA (PCR)(HENRRY) - Final Nasal Mrsa Negative Assess/Plan/Problems-Billing Assessment: Mrs. Walton is an 72yo F with PMH of morbid obesity with BMI 50, CVA, CAD s/p CABG 2007, pulmonic stenosis, CLAUDE non compliant with CPAP, HLD, Afib on Eliquis , type 2 DM, stasis dermatitis, brought in to ED after being found on the floor , confused, for unknown period of time. - Patient Problems (1) Severe sepsis Comment: Patient met sepsis criteria on admission with a qSOFA score of 2 (increased RR, AMS) and with SIRS/sepsis criteria of leukocytosis, tachycardia, complicated by ADELAIDA, sepsis induced encephalopathy, and delirium. Siginificant leukocytosis with left shift and bandemia. Source seems to be E. coli UTI - UA showed negative nitrates and LE, trace WBCs , but culture grew E. coli. There was some concern for endocarditis, but blood cultures are negative. Patient/family declined SJ. Continue cefuroxime for 14 day course, day 6 (2) Femur fracture, right Comment: Distal femur fracture Appreciate ortho input Closed reduction with recommendations for 8 weeks of NWB and immobilization and repeat XRs in 3 weeks (3) Encephalopathy Comment: With underlying mild dementia Resolved, mental status largely back to baseline Likely secondary to sepsis (4) Rhabdomyolysis Comment: Secondary to down time on the floor. Resolved (5) E. coli UTI Comment: Present on admission, not Flowers catheter related. Continue cefuroxime. Blood cultures neg (6) Aortic stenosis Comment: Severe Currently asx with preserved EF Requires further discussion as an outpatient regarding surgical intervention Family has decided against immediate intervention to allow for surgical fixation of the R fremur fracture (7) ADELAIDA (acute kidney injury) Comment: Resolved Secondary to sepsis/rhabdo (8) Troponin level elevated Comment: No evidence of ACS Could be secondary to rhabdo, demand ischemia in the setting of severe sepsis, or NSTEMI. Continue Aspirin. (9) Atrial fibrillation Comment: Currently in sinus rhythm, asymptomatic. Continue Eliquis. (10) Diabetes Comment: PO meds on hold - continue Lispro SS. HgbA1c 6.6% (11) Obstructive sleep apnea Comment: Previously non-compliant with CPAP at home Tolerating BiPAP during hospital stay (12) CAD (coronary artery disease) Comment: Currently asx Cont med management (13) Morbid obesity Comment: BMI 66 (14) Pulmonic stenosis Comment: With mod to severe pul HTN (15) DNR (do not resuscitate) Comment: MOLST on file (16) DVT prophylaxis Comment: Eliquis Status and Disposition: Inpatient. S/p closed reduction of RLE. Working on placement/rehab for patient, patient's family in the [facility]. Continue PT/OT.
--- NOTE | 2017-02-01 10:50 | PN ---
Progress Note - Progress Note SOAP: Subjective: []Patient seen at bedside. Brother and sister in law present. Patient alert and less confused today. Denies significant pain in her right leg. Objective: [] Vital Signs Temp 98.0 F 01/31/17 23:29 Pulse 73 02/01/17 04:35 Resp 16 02/01/17 04:35 BP 117/53 02/01/17 04:35 Pulse Ox 98 02/01/17 04:35 Intake & Output 01/31/17 02/01/17 02/01/17 18:59 06:59 18:59 Intake Total 660 400 480 Output Total 900 400 Balance -240 0 480 Weight 386 lb 12.8 oz Intake: Oral 660 400 480 Output: Flowers 900 400 Other: Estimated Void Medium # Bowel Movements 1 Estimated Stool Amount Large Small Right knee brace donned, padded well with ABDs some edema right foot +DF/PF right ankle Assessment: []s/p closed reduction and bracing Right distal femur fracture Plan: []Continue NWB RLE and bracing at all times except for skin care Awaiting Rehab bed
[2017-02-02] MEDS: Cyanocobalamin INJ * 1,000 MCG/ML VIAL 1 ML VIAL IM SCH (08:03)
[2017-02-02] MEDS: Apixaban* 5 MG TAB PO SCH (08:03)
[2017-02-02] MEDS: ceFUROXime TAB(*) 250 MG PO SCH (08:04)
[2017-02-02] MEDS: Atorvastatin* 40 MG TAB PO SCH (08:04)
[2017-02-02] MEDS: Insulin LISPRO* 1 UNITS UNIT SUBCUT SCH ×2 (08:04→12:41)
[2017-02-02] MEDS: Dronedarone TAB* 400 MG PO SCH (08:04)
[2017-02-02] MEDS: Nystatin TOP POWDER* 15 GM BTL TOPICAL SCH (08:15)
[2017-02-02 08:55] VITALS: BP 120/62
--- NOTE | 2017-02-02 10:59 | DS ---
DATE OF ADMISSION: 01/20/2017. DATE OF DISCHARGE: 02/02/2017. PRIMARY CARE PROVIDER: Dr. Vieira. PRIMARY GASSER MACHINE OPERATOR: Dr. Lay. CONSULTING GASSER MACHINE OPERATOR: Dr. Santos. CONSULTING ORTHOPEDIC SURGEON: Dr. Herrera. CONSULTING INFECTIOUS DISEASE SPECIALIST: Dr. Briggs. DISCHARGING PROVIDER: CRISTOBAL Anderson. SUPERVISING PHYSICIAN: Dr. Joseph Argueta* (dictated by CRISTOBAL Anderson). PRIMARY DISCHARGE DIAGNOSES: 1. Severe sepsis secondary to E. coli UTI. 2. Distal right femur fracture managed nonoperatively, current in an immobilizer with recommendations for a nonweightbearing status for a total of eight weeks. 3. Encephalopathy secondary to sepsis - resolved. 4. Rhabdomyolysis - resolved. 5. E. coli UTI - requires an additional seven days of antibiotics orally. 6. Severe aortic stenosis - patient and his family declined transfer for surgical intervention - no associated heart failure, requires follow-up with Cardiology in four to six weeks. 7. Acute kidney injury - resolved. 8. Demand ischemia. SECONDARY DISCHARGE DIAGNOSES: 1. Mild dementia. 2. Atrial fibrillation - chronically anticoagulated with Eliquis and appropriately rate controlled. 3. Noninsulin dependent diabetes with hemoglobin A1c of 6.6 percent. 4. Obstructive sleep apnea. Previously noncompliant with CPAP at home, but tolerated BiPAP well during hospital stay. 5. Coronary artery disease without evidence of acute coronary syndrome. 6. Morbid obesity with a BMI of 66. 7. Pulmonic stenosis with moderate to severe pulmonary hypertension. 8. DNR status. DISCHARGE MEDICATIONS: 1. Eliquis 5 mg p.o. twice daily. 2. Aspirin 81 mg p.o. daily. 3. Colace 100 mg p.o. twice daily as needed. 4. Multaq 400 mg p.o. twice daily. 5. Hydrocortisone cream applied topically twice daily. 6. Topical Nystatin powder applied three times daily. 7. Senna one tablet p.o. twice daily as needed. 8. Simvastatin 80 mg p.o. daily. 9. Januvia 100 mg p.o. daily. 10. Ceftin 250 mg p.o. twice daily for an additional 7 days - through 2016. 11. Glipizide 5 mg p.o. with breakfast and dinner. 12. Oxycodone 10 mg p.o. q.4 hours as needed for pain. MEDICATION CHANGES: 1. Prn Oxycodone. 2. Cefuroxime times 7 days. 3. Discontinue Metoprolol. HOSPITAL IMAGIN. CT of the brain demonstrates no evidence of acute abnormality, but there was evidence of an old left frontal lobe infarct. 2. Hip and pelvis x-ray shows a probable fracture of the right femoral neck, not well-defined on this study. 3. Chest x-ray shows underinflated lungs, but no evidence of acute findings. 4. CT of the pelvis shows no evidence for hip or pelvic fracture. 5. 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 Transverse fracture through the anterior aspect of the T12 vertebral body of uncertain acuity. There is a large ventral hernia containing loops of sigmoid colon and alarge amount of stool within the colon. 6. MRI of the pelvis shows no evidence for fracture. There are contusions involving the right gluteal and adductor muscles, as well as an anterior abdominal wall hernia. 7. Femur x-ray shows an an angulated fracture of the distal right femur with articular extension. 8. Knee x-ray shows an angulated fracture of the distal right femur with articular extension. 9. Shoulder x-ray shows osteoarthritis, but no acute injury. 10. Repeat knee x-ray, 01/27/2017 shows interval reduction of angulated fracture of the distal femur. 11. Repeat CT of the brain, 01/28/2017 shows mild cortical atrophy with chronic ischemic changes. No acute findings. 12. EKG's show sinus rhythm with occasional PVC. No acute ischemic changes. 13. Transthoracic echocardiogram shows severe LVH, but preserved ejection fraction as well as right ventricular hypertrophy which is mild and restrictive , diastolic filling pattern. Right ventricular systolic function is moderately reduced. Evidence of severe aortic stenosis with aortic valve area of 0.6 cm2 with mild mitral regurgitation, mild mitral stenosis, moderate to severe tricuspid regurgitation, and moderate to severe pulmonary hypertension. The main pulmonary artery is not well visualized. No dilatation of the ascending aorta. HOSPITAL COURSE: This is a 72-year-old female who was previously living independent at [facility] with a history of noninsulin dependent diabetes, atrial fibrillation, and obstructive sleep apnea, previously noncompliant with CPAP, who experienced a fall at home and was brought to the emergency department with altered mental status. Initially, the patient was unable to follow commands. She was reportedly found on the floor of her apartment by her neighbors. It was unclear of how much time she had spent on the floor, but initially she had evidence of acute kidney injury with elevated white blood cell count, troponins, CPK, and initially concern for a right hip fracture. The patient was hallucinating when she first reached the emergency department. Initial vitals were essentially within normal limits. Due to the severity of the patient's altered mental status and initial metabolic derangements, the patient was admitted to the ICU. Initial white blood cell count was nearly 30, 000. Lactic acid was elevated to 2.4, total CPK was nearly 7,000, initial troponin was 0.09. The patient underwent urine analysis and subsequent culture which demonstrated a urinary tract infection secondary to a pansensitive E. coli. The patient was treated for severe sepsis secondary to this. She did not require vasopressor support. There was initial concern that she may also have endocarditis as her one leaflet of her aortic valve was poorly visualized, but blood cultures were eventually negative and family and patient declined transesophageal echocardiogram. There was initial concern that the patient had fractured her right hip, but after CT and MRI there was no evidence of right hip fracture; however, imaging of the distal femur did demonstrate a displaced and angulated distal femur fracture that extended into the articular space. Her echocardiogram demonstrated severe aortic stenosis with an aortic valve area estimated at 0.6 cm2. The patient had previously known aortic stenosis, but this demonstrated a significant advancement in disease. The patient would require aortic valve replacement before she would be deemed appropriate for general anesthesia and there was extensive discussion at to whether the patient would like to be transferred for aortic valve replacement and subsequent surgical fixation of the femur fracture. The patient and her family declined transfer and opted for nonoperative management of the femur fracture. The patient underwent a closed reduction of the distal femur which was successful. The patient was eventually moved from the ICU and her mental status improved slowly with the treatment of her urinary tract infection. The pain in her right leg became manageable with oral analgesics. In regards to her urinary tract infection, blood cultures remained negative. Input was sought from Infectious Disease who suggested a total of two weeks of antibiotics and the patient was transitioned to Cefuroxime. White blood cell count improved and she remained afebrile. Recommendations regarding her leg included immobilization and nonweightbearing for a total of weight weeks. The patient and her family accepted that she will have extremely limited use of the leg without surgical intervention. The patient did not demonstrate any evidence of heart failure and remained asymptomatic in regards to her aortic stenosis without complaints of shortness of breath or dizziness. The patient does require further follow-up with Cardiology to discuss whether intervention on that aortic valve is desired in the future. DISPOSITION AND FOLLOW-UP PLAN: The patient is being discharged to [facility] for rehab. The patient is to remain immobilized and nonweightbearing for a total of eight weeks starting the 22 of January. The patient requires close orthopedic follow-up with repeat imaging in seven to ten days[address] Dr. Herrera has been seeing the patient during her hospital stay here, but seeing as she is relocating to the [facility], and that is where the majority of her family is, she will likely require establishing orthopedic care closer to there. Please see medication list as listed above. The patient still requires close follow-up with Cardiology and further discussion with family as to whether intervention on her aortic stenosis is desired in the future. CRISTOBAL ANDERSON CC: Dr. Vieira; Dr. Herrera; Dr. Lay* [id number]/[facility] #: [id number] [facility] HOSPITALEduard
== END 2017-02-02 12:50 | DRG 871 ==
LOC: ED 21:13 → ICU 23:57 → MEDTELE 01-23 08:50 → MED 01-28 18:23
PROVIDERS: ADMIT Pediatrics; ATTEND Internal Medicine
PROC: 5A09457 Assistance with Respiratory Ventilation, 24-96 Consecutive Hours, Continuous Positive Airway Pressure (ICD-10-PCS; 2017-01-21)
PROC: 0QSBXZZ Reposition Right Lower Femur, External Approach (ICD-10-PCS; principal; 2017-01-29)
DX: A41.9 Sepsis, unspecified organism (principal); G93.40 Encephalopathy, unspecified; I28.1 Aneurysm of pulmonary artery; N17.9 Acute kidney failure, unspecified; K50.90 Crohn's disease, unspecified, without complications; S72.401A Unspecified fracture of lower end of right femur, initial encounter for closed fracture; E87.2 Acidosis; M62.82 Rhabdomyolysis; Z68.44 Body mass index [BMI] 60.0-69.9, adult; N39.0 Urinary tract infection, site not specified; F05 Delirium due to known physiological condition; I24.8 Other forms of acute ischemic heart disease; E11.9 Type 2 diabetes mellitus without complications; Z66 Do not resuscitate; R65.20 Severe sepsis without septic shock; E66.01 Morbid (severe) obesity due to excess calories; I25.10 Atherosclerotic heart disease of native coronary artery without angina pectoris; E78.00 Pure hypercholesterolemia, unspecified; E78.5 Hyperlipidemia, unspecified; G47.33 Obstructive sleep apnea (adult) (pediatric); W18.30XA Fall on same level, unspecified, initial encounter; I87.2 Venous insufficiency (chronic) (peripheral); K42.9 Umbilical hernia without obstruction or gangrene; B96.20 Unspecified Escherichia coli [E. coli] as the cause of diseases classified elsewhere; R74.8 Abnormal levels of other serum enzymes; E53.8 Deficiency of other specified B group vitamins; F03.90 Unspecified dementia, unspecified severity, without behavioral disturbance, psychotic disturbance, mood disturbance, and anxiety; I27.2 Other secondary pulmonary hypertension; K43.9 Ventral hernia without obstruction or gangrene; M85.88 Other specified disorders of bone density and structure, other site; S70.11XA Contusion of right thigh, initial encounter; M19.019 Primary osteoarthritis, unspecified shoulder; I49.3 Ventricular premature depolarization; I08.3 Combined rheumatic disorders of mitral, aortic and tricuspid valves; I11.0 Hypertensive heart disease with heart failure; I50.9 Heart failure, unspecified; Z79.01 Long term (current) use of anticoagulants; I25.2 Old myocardial infarction; Z86.73 Personal history of transient ischemic attack (TIA), and cerebral infarction without residual deficits; Z95.1 Presence of aortocoronary bypass graft; Y92.009 Unspecified place in unspecified non-institutional (private) residence as the place of occurrence of the external cause; Z91.19 Patient's noncompliance with other medical treatment and regimen; Z79.82 Long term (current) use of aspirin; Z79.52 Long term (current) use of systemic steroids; Z79.84 Long term (current) use of oral hypoglycemic drugs
CPT/HCPCS: 36415; 36600; 70450; 71010; 71260; 72192; 72195; 74177; 80048; 80053; 81003; 81015; 82140; 82550; 82607; 82803; 83036; 83605; 83735; 83921; 84484; 85025; 85060; 85610; 85730; 86140; 87040; 87077; 87086; 87186; 87641; 93005; 93306; 94660; 94760; 94762; A9270-GY; C8929; J0692; J1644; J2270; J3420; Q9967